=== PATIENT | male | born 1980 | race Caucasian/White ===

== ENCOUNTER 2022-08-31 12:14 | Emergency (ER) | payer OTHER ==
[2022-08-31 12:19] VITALS: TEMP 98.4
[2022-08-31] MEDS ORDERED: LIDOCAINE 1% INJ 10MG/ML (30 ML VIAL-PF) IM ONE (13:00)
--- NOTE | 2022-08-31 13:05 | ED ---
General Adult HPI - General Chief complaint: Skin/Abscess/Foreign Body Stated complaint: abscess Time Seen by Provider: 08/31/22 12:53 Source: patient, RN notes reviewed Mode of arrival: ambulatory Limitations: no limitations - History of Present Illness Initial comments: Patient is a pleasant 41-year-old male presents emergency department with concern for abscess. Onset was 4 days ago. Symptoms have increased since last night. Patient has discomfort. Area located is right. Scrotal region. No history of similar symptoms previously. Discomfort increases with touch. No fever. Patient recently had flu symptoms however is getting over that. - Related Data Previous Rx's Medication Instructions Recorded Clindamycin [Cleocin] 2 tab PO Q6H #80 cap 08/31/22 Allergies Allergy/AdvReac Type Severity Reaction Status Date / Time No Known Allergies Allergy Verified 08/31/22 12:19 Review of Systems ROS Statement: Those systems with pertinent positive or pertinent negative responses have been documented in the HPI. ROS Other: All systems not noted in ROS Statement are negative. Constitutional: Reports: as per HPI Eyes: Denies: eye pain ENT: Reports: congestion. Denies: ear pain Respiratory: Denies: dyspnea Cardiovascular: Denies: chest pain Endocrine: Denies: fatigue Gastrointestinal: Denies: abdominal pain Genitourinary: Denies: dysuria Musculoskeletal: Denies: back pain Skin: Reports: as per HPI Neurological: Denies: weakness Past Medical History Past Medical History: No Reported History History of Any Multi-Drug Resistant Organisms: None Reported Additional Past Surgical History / Comment(s): hernia Past Psychological History: Anxiety, PTSD Smoking Status: Current every day smoker Past Alcohol Use History: None Reported Past Drug Use History: None Reported General Exam Limitations: no limitations General appearance: alert, in no apparent distress Head exam: Present: normocephalic Eye exam: Present: normal appearance Neck exam: Present: normal inspection Respiratory exam: Present: normal lung sounds bilaterally Cardiovascular Exam: Present: regular rate, normal rhythm GI/Abdominal exam: Present: soft. Absent: tenderness Extremities exam: Present: normal inspection Neurological exam: Present: alert Psychiatric exam: Present: normal affect, normal mood Skin exam: Present: other ( Scrotal region on the right region with approximately 1 x 3cm area of fluctuance and tenderness consistent with early abscess) Course Vital Signs 08/31/22 12:16 Temperature 98.4 F Pulse Rate 90 Respiratory 20 Rate Blood Pressure 150/107 O2 Sat by Pulse 99 Oximetry Procedures - Incision & Drainage Consent Obtained: verbal consent Indication: Complicated abscess. Probed to break up loculations. Culture sent. Site: scrotum Size (cm): 3 Anesthetic Used: lidocaine 1% Amount (mLs): 5 I&D Cleaning Method: Betadine Scalpel Used: #11 I&D Drainage Obtained: Pus Packing: Iodoform Culture Obtained?: Yes Patient Tolerated Procedure: well, no complications Disposition Clinical Impression: Scrotal abscess Disposition: HOME SELF-CARE Condition: Stable Instructions (If sedation given, give patient instructions): Abscess (ED) Additional Instructions: Prescription sent to pharmacy. Please follow-up with primary care physician in the next 2-3 days for packing removal. If unable to get into primary care physician U may return here. Return for fever, increased pain or swelling, increased redness, worsening or changing symptoms or any other concerns. Prescriptions: Clindamycin [Cleocin] 2 tab PO Q6H #80 cap Is patient prescribed a controlled substance at d/c from ED?: No Referrals: Matthew Wellington MD [STAFF PHYSICIAN] - 1-2 days Time of Disposition: 13:41
[2022-08-31 13:58] VITALS: BP 147/88; PULSE 85; RESP 18
== END 2022-08-31 13:57 | disposition home or self-care (01) ==
LOC: EC 12:14
DX: N49.2 Inflammatory disorders of scrotum (principal); F41.9 Anxiety disorder, unspecified; F17.200 Nicotine dependence, unspecified, uncomplicated
CPT/HCPCS: 87070; 87205; 99283; 96372; 10060; J2001

== ENCOUNTER 2024-03-20 14:44 | Inpatient (IN) | payer MEDICARE, OTHER ==
--- NOTE | 2024-03-20 15:35 | ED ---
Skin/Abscess/FB HPI - General Source: patient, RN notes reviewed Mode of arrival: ambulatory Limitations: no limitations <Rashida Alvares - Last Filed: 03/20/24 22:56> <Maia Harrell - Last Filed: 03/21/24 14:08> - General Chief complaint: Skin/Abscess/Foreign Body Stated complaint: cyst in groin Time Seen by Provider: 03/20/24 15:00 - History of Present Illness Initial comments: This is a 23-year-old male presents emergency department chief complaint of a abscess forming. Patient states that he has a history of an abscess that was drained previously yesterday with antibiotics. He states that over the past few weeks, area has been enlarging and he has been experiencing pain. He denies fevers, chills, nausea, vomiting, abdominal pain. Additionally, patient states that over the past 3 to 4 months he has been experiencing watery diarrhea a few times a day. He is denying abdominal pain, bloody stools, dark or tarry stools, dysuria, hematuria, increase in urinary frequency or urgency. (Rashida Alvares) - Related Data Previous Rx's Medication Instructions Recorded clindamycin HCL 300 mg PO QID #40 cap 03/20/24 Allergies Allergy/AdvReac Type Severity Reaction Status Date / Time guaifenesin Allergy Unknown Verified 03/20/24 20:07 Review of Systems ROS Other: All systems not noted in ROS Statement are negative. <Rashida Alvares - Last Filed: 03/20/24 22:56> ROS Other: All systems not noted in ROS Statement are negative. <Maia Harrell - Last Filed: 03/21/24 14:08> ROS Statement: Those systems with pertinent positive or pertinent negative responses have been documented in the HPI. Past Medical History Past Medical History: No Reported History History of Any Multi-Drug Resistant Organisms: MRSA Date of last positivie culture/infection: 08/31/22 MDRO Source:: Groin Additional Past Surgical History / Comment(s): hernia Past Psychological History: Anxiety, PTSD Smoking Status: Current every day smoker Past Alcohol Use History: None Reported Past Drug Use History: None Reported <Rashida Alvares - Last Filed: 03/20/24 22:56> General Exam Limitations: no limitations General appearance: alert, in no apparent distress Head exam: Present: atraumatic, normocephalic, normal inspection Eye exam: Present: normal appearance, PERRL, EOMI. Absent: scleral icterus, conjunctival injection, periorbital swelling ENT exam: Present: normal exam, mucous membranes moist Neck exam: Present: normal inspection. Absent: tenderness, meningismus, ly mphadenopathy Respiratory exam: Present: normal lung sounds bilaterally. Absent: respiratory distress, wheezes, rales, rhonchi, stridor Cardiovascular Exam: Present: regular rate, normal rhythm, normal heart sounds. Absent: systolic murmur, diastolic murmur, rubs, gallop, clicks GI/Abdominal exam: Present: soft, normal bowel sounds. Absent: distended, tenderness, guarding, rebound, rigid exam: Present: other (palpable fluctuant mass, no signs of active drainage, tender to palpation located to the right inferior scrotum). Absent: normal inspection Extremities exam: Present: normal inspection, full ROM, normal capillary refill. Absent: tenderness, pedal edema, joint swelling, calf tenderness Back exam: Present: normal inspection Psychiatric exam: Present: normal affect, normal mood <Rashida Alvares - Last Filed: 03/20/24 22:56> Course Vital Signs 03/20/24 03/20/24 03/20/24 14:57 18:59 20:50 Temperature 98.4 F Pulse Rate 89 94 99 Respiratory 18 18 20 Rate Blood Pressure 128/86 124/86 126/82 O2 Sat by Pulse 98 99 96 Oximetry Medical Decision Making - Lab Data Result diagrams: 03/20/24 16:51 03/20/24 16:51 <Rashida Alvares - Last Filed: 03/20/24 22:56> - Lab Data Result diagrams: 03/21/24 05:36 03/21/24 05:36 <Maia Harrell - Last Filed: 03/21/24 14:08> - Medical Decision Making Was pt. sent in by a medical professional or institution (, PA, COUNTER PERSON, urgent care, hospital, or penitentiary...) When possible be specific @ -No Did you speak to anyone other than the patient for history (EMS, parent, family, police, friend...)? What history was obtained from this source @ -No Did you review nursing and triage notes (agree or disagree)? Why? @ -I reviewed and agree with nursing and triage notes Were old charts reviewed (outside hosp., previous admission, EMS record, old EKG, old radiological studies, urgent care reports/EKG's, penitentiary records)? Report findings @ -No old charts were reviewed Differential Diagnosis (chest pain, altered mental status, abdominal pain women, abdominal pain men, vaginal bleeding, weakness, fever, dyspnea, syncope, headache, dizziness, GI bleed, back pain, seizure, CVA, palpatations, mental health, musculoskeletal)? @ -Abscess, cellulitis, hiradintitis suppurativa, fourineer gangreene, this list is not all inclusive EKG interpreted by me (3pts min.). @ -none X-rays interpreted by me (1pt min.). @ -None done CT interpreted by me (1pt min.). @ -CT of the pelvis with contrast reveals bilateral changes with possible abscess in the right scrotum/perineum compatible with history of infection. Fat stranding changes extending into the inguinal region. Hepatic steatosis. U/S interpreted by me (1pt. min.). @ -None done What testing was considered but not performed or refused? (CT, X-rays, U/S, labs)? Why? @ -None What meds were considered but not given or refused? Why? @ -None Did you discuss the management of the patient with other professionals (professionals i.e. , PA, COUNTER PERSON, lab, RT, psych nurse, transition social worker, physician aide, teacher, motorcycle police officer, case packer and sealer)? Give summary @ -spoke to general surgeon, Dr. Bernard, in regard to the patient;s labs ad CT findings. It is recommended the patient be admitted with IV antibiotics on board. Was smoking cessation discussed for >3mins.? @ -No Was critical care preformed (if so, how long)? @ -No Were there social determinants of health that impacted care today? How? (Homelessness, low income, unemployed, alcoholism, drug addiction, transportation, low edu. Level, literacy, decrease access to med. care, fci, rehab)? @ -No Was there de-escalation of care discussed even if they declined (Discuss DNR or withdrawal of care, Hospice)? DNR status @ -No What co-morbidities impacted this encounter? (DM, HTN, Smoking, COPD, CAD, Cancer, CVA, ARF, Chemo, Hep., AIDS, mental health diagnosis, sleep apnea, morbid obesity)? @ -None Was patient admitted / discharged? Hospital course, mention meds given and route, prescriptions, significant lab abnormalities, going to OR and other pertinent info. @ -admidtted. 43 year - d male with an abscess. On examination patient is noted to have a palpable fluctuant mass of the right hemiscrotum. There is no signs of active drainage. Area was anesthetized with 1% lidocaine and a incision was made with an 11 blade with successful release of purulent material and blood. Additionally, patient's labs reveal a leukocytosis of 14.8 and neutrophilia of 12.1. CMP was remarkable for mild dehydration with a sodium 131. Recommended by my attending, Dr. Harrell, patient to undergo CT imaging of the pelvis for further evaluation of abscess. Was provided with an IV dose of Rocephin. CT concerning for infection with gas draining. General surgeon accepted admission of the patient. He recommends that patient receive Zosyn. Blood cultures have been sent prior to antibiotic administration. Undiagnosed new problem with uncertain prognosis? @ -No Drug Therapy requiring intensive monitoring for toxicity (Heparin, Nitro, Insulin, Cardizem)? @ -No Were any procedures done? @ -No Diagnosis/symptom? @ -abscess of perineum Acute, or Chronic, or Acute on Chronic? @ -Acute Uncomplicated (without systemic symptoms) or Complicated (systemic symptoms)? @ -uncomplicated Side effects of treatment? @ -No Exacerbation, Progression, or Severe Exacerbation? @ -No Poses a threat to life or bodily function? How? (Chest pain, [place], [place], pneumonia, PE, COPD, DKA, ARF, appy, cholecystitis, CVA, Diverticulitis, Homicidal, Suicidal, threat to staff... and all critical care pts) @ -No (Rashida Alvares) Patient presented to myself by Rashida MENESES. 43-year-old male past medical history of recurrent abscesses presenting with area of fluctuance in the right hemiscr otum. Incision and drainage was performed prior to patient being presented to myself. On my evaluation, focused physical exam with Rashida MENESES at bedside as oracle architect, showed erythematous area of fluctuance along the right scrotum with tenderness to palpation. Patient otherwise well appearing, nontoxic and in NAD. Due to the location of the abscess today requested a CT be performed and general surgery consultation. Patient did have mild leukocytosis white blood cell count 14.8, also requested addition of CRP which was slightly elevated, 2.8. CT significant for inflammation with possible abscess in the right scrotum perineum compatible with history of infection, fat stranding changes extending into the inguinal region, surgical consultation is recommended. Per [facility] report, Patient was ultimately accepted for admission to general surgery for further management. (Maia Harrell) - Lab Data Lab Results 03/20/24 03/20/24 03/20/24 Range/Units 16:51 16:51 16:51 WBC 14.8 H (3.8-10.6) k/uL RBC 5.43 (4.30-5.90) m/uL Hgb 17.0 (13.0-17.5) gm/dL Hct 52.6 (39.0-53.0) % MCV 96.9 (80.0-100.0) fL MCH 31.4 (25.0-35.0) pg MCHC 32.4 (31.0-37.0) g/dL RDW 14.0 (11.5-15.5) % Plt Count 505 H (150-450) k/uL MPV 7.2 Neutrophils % 82 % Lymphocytes % 9 % Monocytes % 5 % Eosinophils % 3 % Basophils % 1 % Neutrophils # 12.1 H (1.3-7.7) k/uL Lymphocytes # 1.3 (1.0-4.8) k/uL Monocytes # 0.8 (0-1.0) k/uL Eosinophils # 0.4 (0-0.7) k/uL Basophils # 0.1 (0-0.2) k/uL Sodium 131 L (137-145) mmol/L Potassium 3.9 (3.5-5.1) mmol/L Chloride 102 (98-107) mmol/L Carbon Dioxide 22 (22-30) mmol/L Anion Gap 7 mmol/L BUN 4 L (9-20) mg/dL Creatinine 0.52 L (0.66-1.25) mg/dL Est GFR (CKD-EPI)AfAm >90 (>60 ml/min/1.73 sqM) Est GFR (CKD-EPI)NonAf >90 (>60 ml/min/1.73 sqM) Glucose 83 (74-99) mg/dL Plasma Lactic Acid Jayce (0.7-2.0) mmol/L Calcium 9.5 (8.4-10.2) mg/dL Total Bilirubin 1.2 (0.2-1.3) mg/dL AST 60 H (17-59) U/L ALT 44 (4-49) U/L Alkaline Phosphatase 129 H (38-126) U/L C-Reactive Protein 2.8 H (<1.0) mg/dL Total Protein 7.1 (6.3-8.2) g/dL Albumin 3.8 (3.5-5.0) g/dL Amylase 51 (30-110) U/L Lipase 53 (23-300) U/L 03/20/24 Range/Units 17:45 WBC (3.8-10.6) k/uL RBC (4.30-5.90) m/uL Hgb (13.0-17.5) gm/dL Hct (39.0-53.0) % MCV (80.0-100.0) fL MCH (25.0-35.0) pg MCHC (31.0-37.0) g/dL RDW (11.5-15.5) % Plt Count (150-450) k/uL MPV Neutrophils % % Lymphocytes % % Monocytes % % Eosinophils % % Basophils % % Neutrophils # (1.3-7.7) k/uL Lymphocytes # (1.0-4.8) k/uL Monocytes # (0-1.0) k/uL Eosinophils # (0-0.7) k/uL Basophils # (0-0.2) k/uL Sodium (137-145) mmol/L Potassium (3.5-5.1) mmol/L Chloride (98-107) mmol/L Carbon Dioxide (22-30) mmol/L Anion Gap mmol/L BUN (9-20) mg/dL Creatinine (0.66-1.25) mg/dL Est GFR (CKD-EPI)AfAm (>60 ml/min/1.73 sqM) Est GFR (CKD-EPI)NonAf (>60 ml/min/1.73 sqM) Glucose (74-99) mg/dL Plasma Lactic Acid Jayce 1.1 (0.7-2.0) mmol/L Calcium (8.4-10.2) mg/dL Total Bilirubin (0.2-1.3) mg/dL AST (17-59) U/L ALT (4-49) U/L Alkaline Phosphatase (38-126) U/L C-Reactive Protein (<1.0) mg/dL Total Protein (6.3-8.2) g/dL Albumin (3.5-5.0) g/dL Amylase (30-110) U/L Lipase (23-300) U/L Disposition Is patient prescribed a controlled substance at d/c from ED?: No Decision to Admit Reason: Admit from EC Decision Date: 03/20/24 Decision Time: 18:58 <Rashida Alvares - Last Filed: 03/20/24 22:56> <Maia Harrell - Last Filed: 03/21/24 14:08> Clinical Impression: Abscess of perineum Disposition: ADMITTED IP TO THIS HOSP Condition: Good
[2024-03-20] MEDS: LIDOCAINE 1% INJ 10MG/ML (20 ML MDV) SQ ONE (16:50)
[2024-03-20 17:09] LABS: Basophils # (A) 0.1 k/uL (0-0.2); Basophils % (A) 1 %; Eosinophils # (A) 0.4 k/uL (0-0.7); Eosinophils % (A) 3 %; HCT 52.6 % (39.0-53.0); Lymphocytes # (A) 1.3 k/uL (1.0-4.8); Lymphocytes % (A) 9 %; MCH 31.4 pg (25.0-35.0); MCHC 32.4 g/dL (31.0-37.0); MCV 96.9 fL (80.0-100.0); Mean Platelet Volume 7.2; Monocytes # (A) 0.8 k/uL (0-1.0); Monocytes % (A) 5 %; Neutrophils # (A) 12.1 k/uL (1.3-7.7); Neutrophils % (A) 82 %; Platelet Count 505 k/uL (150-450); RBC 5.43 m/uL (4.30-5.90); WBC 14.8 k/uL (3.8-10.6)
[2024-03-20 17:26] LABS: ALT 44 U/L (4-49); African American GFR (CKD) >90 (>60 ml/min/1.73 sqM); Albumin 3.8 g/dL (3.5-5.0); Amylase 51 U/L (30-110); Anion Gap 7 mmol/L; Blood Urea Nitrogen 4 mg/dL (9-20); Calcium 9.5 mg/dL (8.4-10.2); Carbon Dioxide 22 mmol/L (22-30); Chloride 102 mmol/L (98-107); Glucose 83 mg/dL (74-99); Lipase 53 U/L (23-300); Non-African American GFR(CKD) >90 (>60 ml/min/1.73 sqM); Sodium 131 mmol/L (137-145); Total Bilirubin 1.2 mg/dL (0.2-1.3); Total Protein 7.1 g/dL (6.3-8.2)
[2024-03-20 17:31] LABS: AST 60 U/L (17-59); Alkaline Phosphatase 129 U/L (38-126); Potassium 3.9 mmol/L (3.5-5.1)
[2024-03-20] MEDS: cefTRIAXone 1,000 MG VIAL (IM USE) IM STA (17:43)
[2024-03-20] MEDS: cefTRIAXone IN SWFI 1,000 MG/10 ML SYRINGE IVP STA (17:48)
--- NOTE | 2024-03-20 18:37 | CT ---
EXAMINATION TYPE: CT pelvis w con CT DLP: 878.2 mGycm, Automated exposure control for dose reduction was used. DATE OF EXAM: 03/20/2024 6:14 PM COMPARISON: None CLINICAL INDICATION:Male, 43 years old with history of abscess in groin; Pt has complaint of abscess in groin x 2 days and watery stool x a couple months. TECHNIQUE: Axial CT pelvis w con;Sagittal and coronal reformats were created on a separate workstati on. Contrast used:100 mL of Isovue 300 with IV Contrast, (none if empty) Oral contrast used: without Oral Contrast (none if empty) FINDINGS: Low-attenuation of the liver visualized. BLADDER: Unremarkable REPRODUCTIVE: Unremarkable. ABDOMEN & PELVIS STOMACH AND BOWEL: No evidence of bowel obstruction. Moderate stool in the rectum and visualized colo n. PERITONEUM/RETROPERITONEUM: No evidence of pneumoperitoneum or free fluid. VASCULATURE: No evidence of aortic aneurysm. MUSCULOSKELETAL: No acute osseous abnormalities LYMPH NODES: No gross evidence for lymphadenopathy. SOFT TISSUE/ABDOMINAL WALL: There is phlegmonous change with fat stranding along the right scrotum/pe rineum suggested series 301 image 59 measuring 48 x 15 mm Fat stranding changes extend up in the righ t inguinal region with reactive lymph nodes present. IMPRESSION: 1. Inflammation changes with possible abscess in the right scrotum/perineum compatible with history o f infection. There is fat stranding changes extending up into the inguinal region. Surgical consultat ion recommended. 2. Hepatic steatosis.
[2024-03-20] MEDS ORDERED: ACETAMINOPHEN TAB 325 MG TAB PO PRN (19:14)
[2024-03-20] MEDS ORDERED: KETOROLAC 15 MG/ML 1 ML VIAL IVP PRN (19:14)
[2024-03-20] MEDS ORDERED: NALOXONE 0.4 MG/ML 1 ML VIAL IV PRN (19:14)
[2024-03-20] MEDS: PIPERACILLIN-TAZOBACTAM 3.375 GM in SODIUM CHLORIDE 0.9% 100 ML IVPB SCH (19:31)
[2024-03-21 09:49] LABS: HCT 46.3 % (39.6-50.0); HGB 16.1 g/dL (13.0-17.0); MCH 31.8 pg (27.0-32.0); MCHC 34.8 g/dL (32.0-37.0); MCV 91.5 FL (80.0-97.0); Mean Platelet Volume 9.4 FL (9.5-12.2); NRBC Per 100 WBC 0 X 10*3/uL (0.00-0.01); Platelet Count 393 X 10*3/uL (140-440); RBC 5.06 X 10*6/uL (4.40-5.60); RDW 14.1 % (11.5-14.5); WBC 13.94 X 10*3/uL (4.50-10.00)
[2024-03-21 09:54] LABS: ALT 35 U/L (10-49); AST 35 U/L (14-35); Albumin 3.4 g/dL (3.8-4.9); Albumin/Globulin Ratio 1.26 Ratio (1.60-3.17); Alkaline Phosphatase 134 U/L (41-126); BUN/Creat Ratio 7.83 Ratio (12.00-20.00); Blood Urea Nitrogen 4.7 mg/dL (9.0-27.0); Calcium 8.6 mg/dL (8.7-10.3); Carbon Dioxide 22.5 mmol/L (21.6-31.8); Chloride 97 mmol/L (96-109); Globulin 2.7 g/dL (1.6-3.3); Glucose 88 mg/dL (70-110); Potassium 3.6 mmol/L (3.5-5.5); Sodium 131 mmol/L (135-145); Total Bilirubin 0.6 mg/dL (0.3-1.2); Total Protein 6.1 g/dL (6.2-8.2)
[2024-03-21 10:23] LABS: Basophils % (A) 0.7 %; Eosinophils # (A) 0.37 X 10*3/uL (0.04-0.35); Eosinophils % (A) 2.7 %; Lymphocytes # (A) 1.18 X 10*3/uL (0.90-5.00); Lymphocytes % (A) 8.5 %; Monocytes # (A) 1.78 X 10*3/uL (0.20-1.00); Monocytes % (A) 12.8 %; Neutrophils # (A) 10.43 X 10*3/uL (1.80-7.70); Neutrophils % (A) 74.7 %
[2024-03-21 10:24] LABS: RBC Morphology Normal (Normal)
[2024-03-21] MEDS: NICOTINE 21MG/24HR PATCH TRANSDERM SCH (12:08)
--- NOTE | 2024-03-21 17:03 | P.GSHP ---
History of Present Illness H&P Date: 03/21/24 This is a 23-year-old male presents emergency department chief complaint of a possible groin abscess. Patient states that he has a history of an abscess that was drained a couple days ago and started on antibiotics. He states that over the past couple days, area has been enlarging and he has been experiencing pain. He denies fevers, chills, nausea, vomiting, abdominal pain. Additionally, patient states that over the past 3 to 4 months he has been experiencing watery diarrhea a few times a day. He is denying abdominal pain, bloody stools, dark or tarry stools, dysuria, hematuria, increase in urinary frequency or urgency. ROS Statement: Those systems with pertinent positive or pertinent negative responses have been documented in the HPI. Past Medical History Past Medical History: No Reported History History of Any Multi-Drug Resistant Organisms: MRSA Date of last positivie culture/infection: 08/31/22 MDRO Source:: Groin Additional Past Surgical History / Comment(s): hernia Past Psychological History: Anxiety, PTSD Smoking Status: Current every day smoker Past Alcohol Use History: None Reported Past Drug Use History: None Reported General Exam Limitations: no limitations General appearance: alert, in no apparent distress Head exam: Present: atraumatic, normocephalic, normal inspection Eye exam: Present: normal appearance, PERRL, EOMI. Absent: scleral icterus, conjunctival injection, periorbital swelling ENT exam: Present: normal exam, mucous membranes moist Neck exam: Present: normal inspection. Absent: tenderness, meningismus, lymphadenopathy Respiratory exam: Present: normal lung sounds bilaterally. Absent: respiratory distress, wheezes, rales, rhonchi, stridor Cardiovascular Exam: Present: regular rate, normal rhythm, normal heart sounds. Absent: systolic murmur, diastolic murmur, rubs, gallop, clicks GI/Abdominal exam: Present: soft, normal bowel sounds. Absent: distended, tenderness, guarding, rebound, rigid exam: Present: other (palpable fluctuant mass, no signs of active drainage, tender to palpation located to the right inferior scrotum). Absent: normal inspection Extremities exam: Present: normal inspection, full ROM, normal capillary refill. Absent: tenderness, pedal edema, joint swelling, calf tenderness Back exam: Present: normal inspection Psychiatric exam: Present: normal affect, normal mood 43 year old male groin abscess. Patient had previous Incision and Drainage -Regular Diet -Repeat CT-AP as area seems to be enlarging s/p I & D per patient -Zosyn -NPO/midnight -Pain Control Past Medical History Past Medical History: No Reported History History of Any Multi-Drug Resistant Organisms: MRSA Date of last positivie culture/infection: 08/31/22 MDRO Source:: Groin Past Surgical History: Hernia Repair Additional Past Surgical History / Comment(s): hernia Additional Past Anesthesia/Blood Transfusion Reaction / Comment(s): Pt states that coming of anesthesia is hard for him, he states he is not himself for 3 to 4 days, feels disassociated during this time. Pt states "not alexa, feel like is in the wrong reality." Past Psychological History: Anxiety, PTSD Smoking Status: Current every day smoker Past Alcohol Use History: None Reported Past Drug Use History: None Reported Medications and Allergies Home Medications Medication Instructions Recorded Confirmed Type clindamycin HCL 300 mg PO QID #40 cap 03/20/24 Rx Allergies Allergy/AdvReac Type Severity Reaction Status Date / Time guaifenesin Allergy Unknown Verified 03/20/24 20:07 Surgical - Exam Vital Signs Temp Pulse Resp BP Pulse Ox 98.4 F 89 18 128/86 98 03/20/24 14:57 03/20/24 14:57 03/20/24 14:57 03/20/24 14:57 03/20/24 14:57 Results - Labs 03/21/24 05:36 03/21/24 05:36 Abnormal Lab Results - Last 24 Hours (Table) 03/20/24 03/20/24 03/20/24 Range/Units 16:51 16:51 16:51 WBC 14.8 H (3.8-10.6) k/uL Plt Count 505 H (150-450) k/uL MPV (9.5-12.2) FL Immature Gran # (0.00-0.04) X 10*3/uL Neutrophils # 12.1 H (1.3-7.7) k/uL Monocytes # (0.20-1.00) X 10*3/uL Eosinophils # (0.04-0.35) X 10*3/uL Sodium 131 L (137-145) mmol/L BUN 4 L (9-20) mg/dL Creatinine 0.52 L (0.66-1.25) mg/dL BUN/Creatinine Ratio (12.00-20.00) Ratio Calcium (8.7-10.3) mg/dL AST 60 H (17-59) U/L Alkaline Phosphatase 129 H (38-126) U/L C-Reactive Protein 2.8 H (<1.0) mg/dL Total Protein (6.2-8.2) g/dL Albumin (3.8-4.9) g/dL Albumin/Globulin Ratio (1.60-3.17) Ratio C. difficile (EIA) Intrp (Negative) 03/21/24 03/21/24 03/21/24 Range/Units 00:00 05:36 05:36 WBC 13.94 H (3.8-10.6) k/uL Plt Count (150-450) k/uL MPV 9.4 L (9.5-12.2) FL Immature Gran # 0.08 H (0.00-0.04) X 10*3/uL Neutrophils # 10.43 H (1.3-7.7) k/uL Monocytes # 1.78 H (0.20-1.00) X 10*3/uL Eosinophils # 0.37 H (0.04-0.35) X 10*3/uL Sodium 131 L (137-145) mmol/L BUN 4.7 L (9-20) mg/dL Creatinine (0.66-1.25) mg/dL BUN/Creatinine Ratio 7.83 L (12.00-20.00) Ratio Calcium 8.6 L (8.7-10.3) mg/dL AST (17-59) U/L Alkaline Phosphatase 134 H (38-126) U/L C-Reactive Protein (<1.0) mg/dL Total Protein 6.1 L (6.2-8.2) g/dL Albumin 3.4 L (3.8-4.9) g/dL Albumin/Globulin Ratio 1.26 L (1.60-3.17) Ratio C. difficile (EIA) Intrp Positive A (Negative) Diabetes panel 03/20/24 03/21/24 Range/Units 16:51 05:36 Sodium 131 L 131 L (137-145) mmol/L Potassium 3.9 3.6 (3.5-5.1) mmol/L Chloride 102 97 (98-107) mmol/L Carbon Dioxide 22 22.5 (22-30) mmol/L BUN 4 L 4.7 L (9-20) mg/dL Creatinine 0.52 L 0.6 (0.66-1.25) mg/dL Glucose 83 88 (74-99) mg/dL Calcium 9.5 8.6 L (8.4-10.2) mg/dL AST 60 H 35 (17-59) U/L ALT 44 35 (4-49) U/L Alkaline Phosphatase 129 H 134 H (38-126) U/L Total Protein 7.1 6.1 L (6.3-8.2) g/dL Albumin 3.8 3.4 L (3.5-5.0) g/dL Calcium panel 03/20/24 03/21/24 Range/Units 16:51 05:36 Calcium 9.5 8.6 L (8.4-10.2) mg/dL Albumin 3.8 3.4 L (3.5-5.0) g/dL Pituitary panel 03/20/24 03/21/24 Range/Units 16:51 05:36 Sodium 131 L 131 L (137-145) mmol/L Potassium 3.9 3.6 (3.5-5.1) mmol/L Chloride 102 97 (98-107) mmol/L Carbon Dioxide 22 22.5 (22-30) mmol/L BUN 4 L 4.7 L (9-20) mg/dL Creatinine 0.52 L 0.6 (0.66-1.25) mg/dL Glucose 83 88 (74-99) mg/dL Calcium 9.5 8.6 L (8.4-10.2) mg/dL Adrenal panel 03/20/24 03/21/24 Range/Units 16:51 05:36 Sodium 131 L 131 L (137-145) mmol/L Potassium 3.9 3.6 (3.5-5.1) mmol/L Chloride 102 97 (98-107) mmol/L Carbon Dioxide 22 22.5 (22-30) mmol/L BUN 4 L 4.7 L (9-20) mg/dL Creatinine 0.52 L 0.6 (0.66-1.25) mg/dL Glucose 83 88 (74-99) mg/dL Calcium 9.5 8.6 L (8.4-10.2) mg/dL Total Bilirubin 1.2 0.6 (0.2-1.3) mg/dL AST 60 H 35 (17-59) U/L ALT 44 35 (4-49) U/L Alkaline Phosphatase 129 H 134 H (38-126) U/L Total Protein 7.1 6.1 L (6.3-8.2) g/dL Albumin 3.8 3.4 L (3.5-5.0) g/dL
[2024-03-21] MEDS: VANCOMYCIN 125 MG CAPSULE PO SCH (17:44)
--- NOTE | 2024-03-21 18:45 | CT ---
EXAMINATION TYPE: CT abdomen pelvis w con CT DLP: 1558 mGycm, Automated exposure control for dose reduction was used. DATE OF EXAM: 03/21/2024 6:12 PM COMPARISON: CT pelvis one-day prior CLINICAL INDICATION:Male, 43 years old with history of Groin Abscess, Necrotizing Fasciitis; Abdomina l pain, groin abscess, C-Diff positive TECHNIQUE: Axial CT abdomen pelvis w con;Sagittal and coronal reformats were created on a separate w orkstation. Contrast used:100ML mL of Isovue 300 with IV Contrast, (none if empty) Oral contrast used: without Oral Contrast (none if empty) FINDINGS: ABDOMEN LIVER: Unremarkable GALLBLADDER AND BILE DUCTS: Unremarkable. PANCREAS: Unremarkable. SPLEEN: Unremarkable. ADRENAL GLANDS: Unremarkable. KIDNEYS AND URETERS: No evidence of hydronephrosis or renal calculus. The ureters are unremarkable. BLADDER: Unremarkable REPRODUCTIVE: Unremarkable. ABDOMEN & PELVIS STOMACH AND BOWEL: No evidence of bowel obstruction. Moderate stool in the rectum and visualized colo n. PERITONEUM/RETROPERITONEUM: No evidence of pneumoperitoneum or free fluid. VASCULATURE: No evidence of aortic aneurysm. MUSCULOSKELETAL: No acute osseous abnormalities LYMPH NODES: No gross evidence for lymphadenopathy. SOFT TISSUE/ABDOMINAL WALL: Partially in the [id number] on today's exam There is similar phlegmono us change with fat stranding along the right scrotum/perineum series measuring 46 x [address]ing changes extend up in the right inguinal region with reactive lymph nodes present. IMPRESSION: 1. Partially visualized on this examination due to field of view, no significant change in visualized portions with suspected abscess in the right scrotum/perineum compatible with history of infection. No subcutaneous gas identified. 2. Hepatic steatosis.
--- NOTE | 2024-03-22 10:26 | P.PN ---
Subjective Progress Note Date: 03/22/24 Patient still has complaints of swelling on his right perineum. There has been some drainage. On exam vital signs are stable. The right perineum appears swollen. There is no fluctuance. Possible perineal abscess. Patient will be made n.p.o. tonight for possible I&D in the a.m. if it has not improved. Objective - Vital Signs Vital signs: Vital Signs Temp 98.4 F 03/22/24 06:47 Pulse 60 03/22/24 06:47 Resp 16 03/22/24 06:47 BP 116/78 03/22/24 06:47 Pulse Ox 98 03/22/24 06:47 FiO2 Intake & Output 03/21/24 03/22/24 03/22/24 18:59 06:59 18:59 Intake Total 540 590 Balance 540 590 Intake: Oral 540 590 Other: # Voids 3 - Labs CBC & Chem 7: 03/21/24 05:36 03/21/24 05:36 Labs: Microbiology - Last 24 Hours (Table) 03/20/24 17:40 Blood Culture Gram Stain - Preliminary Blood Blood Culture - Preliminary Molecular ID
[2024-03-22] MEDS ORDERED: VANCOMYCIN IV PER PHARMACY 1 EACH MISC MISCELLANE PRN (11:31)
[2024-03-22] MEDS: VANCOMYCIN 125 MG CAPSULE PO SCH (12:41)
[2024-03-22] MEDS: VANCOMYCIN 1,500 MG in SODIUM CHLORIDE 0.9% 500 ML 500 ML IVPB SCH (12:41)
[2024-03-22] MEDS ORDERED: VANCOMYCIN 125 MG CAPSULE PO SCH (13:00)
--- NOTE | 2024-03-22 15:11 | P.CONS ---
History of Present Illness - Reason for Consult Consult date: 03/22/24 - History of Present Illness History of present illness; 43-year-old male patient with no significant past medical history who presented to ER with a chief complaint of right groin swelling and infection. Patient has history of abscess that was drained few days ago and patient was started on antibiotics. Patient noticed that swelling was enlarging and pain was increasing. Patient denied any fever, chills, night sweats on presentation. Patient also reported watery diarrhea on presentation. Patient denied any melena, blood in the stool, abdominal pain, nausea or vomiting. Patient denied any dysuria urgency frequency weakness or numbness of extremities. Internal medicine consulted for medical management. Patient C. difficile test came back positive for which patient started on p.o. vancomycin. Infectious disease consulted. REVIEW OF SYSTEMS: Please refer to HPI for pertinent positive and negative. The rest of the 14-point review of systems is negative. PHYSICAL EXAMINATION: GENERAL: The patient is alert and oriented x3, not in any acute distress. Well developed, well nourished. HEENT: Pupils are round and equally reacting to light. EOMI. No scleral icterus. No conjunctival pallor. Normocephalic, atraumatic. No pharyngeal erythema. No thyromegaly. CARDIOVASCULAR: S1 and S2 present. No murmurs, rubs, or gallops. PULMONARY: Chest is clear to auscultation, no wheezing or crackles. ABDOMEN: Soft, nontender, nondistended, normoactive bowel sounds. No palpable organomegaly. MUSCULOSKELETAL: No joint swelling or deformity. EXTREMITIES: No cyanosis, clubbing, or pedal edema. NEUROLOGICAL: Gross neurological examination did not reveal any focal deficits. SKIN: Palpable, fluctuation right inferior scrotum, tender. Assessment and plan Right groin abscess: Positive blood culture: Staphylococcus Epi C. difficile infection: Presented with right groin pain and swelling, had previous I&D was on antibiotics, presented with worsening swelling and pain. CT scan showed no significant change in visualized portions with suspected abscess in the right scrotum/perineum compatible with history of infection. Management per primary. Infectious disease consultedcurrently on p.o. vancomycin, IV vancomycin. Dictation was produced using [employer] software. please excuse any grammatical, word or spelling errors. Past Medical History Past Medical History: No Reported History History of Any Multi-Drug Resistant Organisms: MRSA Year Discovered:: 08/31/22 MDRO Source:: Groin Past Surgical History: Hernia Repair Additional Past Surgical History / Comment(s): hernia Additional Past Anesthesia/Blood Transfusion Reaction / Comm: Pt states that coming of anesthesia is hard for him, he states he is not himself for 3 to 4 days, feels disassociated during this time. Pt states "not alexa, feel like is in the wrong reality." Past Psychological History: Anxiety, PTSD Smoking Status: Current every day smoker Past Alcohol Use History: None Reported Past Drug Use History: None Reported Medications and Allergies Home Medications Medication Instructions Recorded Confirmed Type clindamycin HCL 300 mg PO QID #40 cap 03/20/24 Rx Allergies Allergy/AdvReac Type Severity Reaction Status Date / Time guaifenesin Allergy Unknown Verified 03/20/24 20:07 Physical Exam Vitals: Vital Signs Temp Pulse Resp BP Pulse Ox 03/22/24 13:55 98.8 F 76 17 113/78 98 03/22/24 08:45 60 16 03/22/24 06:47 98.4 F 60 16 116/78 98 03/22/24 02:00 98.2 F 16 119/76 96 03/21/24 19:58 97.8 F 83 16 136/92 96 Intake and Output 03/22/24 03/22/24 03/22/24 06:59 14:59 22:59 Intake Total 590 Balance 590 Intake: Oral 590 Other: # Voids 3 Results CBC & Chem 7: 03/21/24 05:36 03/21/24 05:36 Labs: Microbiology - Last 24 Hours (Table) 03/20/24 17:40 Blood Culture Gram Stain - Preliminary Blood Blood Culture - Preliminary Molecular ID
[2024-03-23 03:32] LABS: African American GFR (CKD) >90 (>60 ml/min/1.73 sqM); Non-African American GFR(CKD) >90 (>60 ml/min/1.73 sqM)
--- NOTE | 2024-03-23 08:06 | P.CONS ---
History of Present Illness - Reason for Consult Consult date: 03/22/24 Groin abscess, C. difficile Requesting physician: Santhosh Truong - Chief Complaint Right groin pain swelling drainage and diarrhea x days - History of Present Illness Patient is a 43-year-old male with a past medical history significant for anxiety PTSD current everyday smoker history of recurrent boil/sinus to the groin area now presenting to the hospital 2 days ago concerning for an area of swelling and drainage from the right groin area that apparently has been getting worse over the last few weeks and becoming more painful patient describing the pain to be sharp moderate intensity without radiation patient denies high-grade fever and no fever was recorded on presentation to the hospital patient was not tachycardic hypotensive or hypoxic patient did have a white count of 14 point 8 repeat is 13.94 creatinine is normal CRP is elevated patient also complaining of diarrhea that has been chronic for him some worsening recently patient mention about 10 episodes of diarrhea/loose stools per day denies any blood or mucus in the stool or any crampy abdominal pain patient did tested positive for C. difficile apparently the patient did have a drainage of the abscess abscess by the ER physician but no cultures were done patient is currently on combination of Zosyn and oral Vanco infectious disease was consulted for further management of antibiotic therapy patient did have a pelvis CT initially on the which did shows a phlegmon changes fat stranding along the right scrotum perineal 48 X 15 mm fat stranding with reactive lymph node in the right groin CT was repeated last evening partially visualized on this examination due to the review, no gas- forming patient also have positive blood culture with gram-positive cocci Review of Systems Positive point and negatives has been mentioned in the HPI, complete review of systems was performed and all other systems are negative Past Medical History Past Medical History: No Reported History History of Any Multi-Drug Resistant Organisms: MRSA Year Discovered:: 08/31/22 MDRO Source:: Groin Past Surgical History: Hernia Repair Additional Past Surgical History / Comment(s): hernia Additional Past Anesthesia/Blood Transfusion Reaction / Comm: Pt states that coming of anesthesia is hard for him, he states he is not himself for 3 to 4 days, feels disassociated during this time. Pt states "not alexa, feel like is in the wrong reality." Past Psychological History: Anxiety, PTSD Smoking Status: Current every day smoker Past Alcohol Use History: None Reported Past Drug Use History: None Reported Medications and Allergies Home Medications Medication Instructions Recorded Confirmed Type clindamycin HCL 300 mg PO QID #40 cap 03/20/24 Rx Allergies Allergy/AdvReac Type Severity Reaction Status Date / Time guaifenesin Allergy Unknown Verified 03/20/24 20:07 Physical Exam Vitals: Vital Signs Temp Pulse Resp BP Pulse Ox 03/22/24 08:45 60 16 03/22/24 06:47 98.4 F 60 16 116/78 98 03/22/24 02:00 98.2 F 16 119/76 96 03/21/24 19:58 97.8 F 83 16 136/92 96 03/21/24 13:30 98.3 F 68 17 112/70 96 Intake and Output 03/21/24 03/22/24 03/22/24 22:59 06:59 14:59 Intake Total 540 590 Balance 540 590 Intake: Oral 540 590 Other: # Voids 3 GENERAL DESCRIPTION: Middle-aged male lying in bed, no distress. No tachypnea or accessory muscle of respiration use. HEENT: Shows Pallor , no scleral icterus. Oral mucous membrane is dry. No pharyngeal erythema or thrush NECK: Trachea central, no thyromegaly. LUNGS: Unlabored breathing. Clear to auscultation anteriorly. No wheeze or crackle. HEART: S1, S2, regular rate and rhythm. No loud murmur ABDOMEN: Soft, no tenderness , guarding or rigidity, no organomegaly EXTREMITIES: Right groin and did have a induration and some purulent drainage SKIN: No rash, no masses palpable. NEUROLOGICAL: The patient is awake, alert, oriented x3, mood and affect normal. Results CBC & Chem 7: 03/21/24 05:36 03/23/24 02:18 Labs: Microbiology - Last 24 Hours (Table) 03/20/24 17:40 Blood Culture Gram Stain - Preliminary Blood Blood Culture - Preliminary Molecular ID Assessment and Plan (1) Abscess of right groin Current Visit: Yes Status: Acute Code(s): L02.214 - CUTANEOUS ABSCESS OF GROIN SNOMED Code(s): 95661790 (2) C. difficile colitis Current Visit: Yes Status: Acute Code(s): A04.72 - ENTEROCOLITIS D/T CLOSTRIDIUM DIFFICILE, NOT SPCF RECUR SNOMED Code(s): 889886107 (3) Positive blood culture Current Visit: Yes Status: Acute Code(s): R78.81 - BACTEREMIA SNOMED Code(s): 202141937 Plan: 1patient presented to hospital with recurrent swelling redness and drainage to the right groin area has been diagnosed with an abscess which has been drained in the ER unfortunately no cultures were done still have some purulent drainage and surgery is planned for possible drainage in the OR tomorrow at which time the culture should be obtained likely from gram-positive skin alhaji. 2positive blood culture with gram-positive cocci including possible skin contamination versus related to the right groin abscess. 3diarrhea and tested positive for C. difficile colitis. 4discontinue Zosyn and will start the patient on IV vancomycin for the right groin abscess. 5we will increase the dose of oral vancomycin 250 g p.o. every 6 hours for the C. difficile colitis. We will follow on clinical condition and cultures to further adjust medication if needed Thank you for this consultation we will follow the patient along with you Dictation was produced using [employer] dictation software. please excuse any grammatical, word or spelling errors. Time with Patient: Greater than 30
--- NOTE | 2024-03-23 13:35 | P.PN ---
Subjective Progress Note Date: 03/23/24 CHIEF COMPLAINT: Possible perineal abscess HISTORY OF PRESENT ILLNESS: Patient reports he had increase in drainage from the perineal abscess yesterday. He has had a little drainage today. He reports improvement in pain. He is able to sit. He denies any nausea or vomiting. Afebrile. He is also positive for C. difficile. Followed by infectious disease. PHYSICAL EXAM: VITAL SIGNS: Reviewed. GENERAL: Well-developed in no acute distress. ABDOMEN: Soft. Nondistended. Perineal area on the right indurated. No fluctuance NEUROLOGIC: Alert and oriented. Cranial nerves II through XII grossly intact. ASSESSMENT: 1. Possible perineal abscess 2. C. difficile colitis PLAN: -Continue antibiotics per ID service -No plans for incision and drainage at this time -Continue treatment for C. difficile colitis Physician Dictaphone Typist note has been reviewed by physician. Signing provider agrees with the documented findings, assessment, and plan of care. Objective - Vital Signs Vital signs: Vital Signs Temp 98.2 F 03/23/24 07:23 Pulse 76 03/23/24 07:23 Resp 17 03/23/24 07:23 BP 139/90 03/23/24 07:23 Pulse Ox 98 03/23/24 07:23 FiO2 Intake & Output 03/22/24 03/23/24 03/23/24 18:59 06:59 18:59 Intake Total 360 Balance 360 Intake: Oral 360 Other: # Voids 4 1 # Bowel Movements 3 - Labs CBC & Chem 7: 03/21/24 05:36 03/23/24 02:18 Labs: Abnormal Lab Results - Last 24 Hours (Table) 03/23/24 Range/Units 02:18 Creatinine 0.42 L (0.66-1.25) mg/dL Microbiology - Last 24 Hours (Table) 03/20/24 17:40 Blood Culture Gram Stain - Preliminary Blood Blood Culture - Preliminary Staphylococcus epidermidis Molecular ID
--- NOTE | 2024-03-23 13:50 | P.PN ---
Subjective Progress Note Date: 03/23/24 43-year-old male patient with no significant past medical history who presented to ER with a chief complaint of right groin swelling and infection. Patient has history of abscess that was drained few days ago and patient was started on antibiotics. Patient noticed that swelling was enlarging and pain was increasing. Patient denied any fever, chills, night sweats on presentation. Patient also reported watery diarrhea on presentation. Patient denied any melena, blood in the stool, abdominal pain, nausea or vomiting. Patient denied any dysuria urgency frequency weakness or numbness of extremities. Internal medicine consulted for medical management. Patient C. difficile test came back positive for which patient started on p.o. vancomycin. Infectious disease consulted. 03/23. Patient seen and examined. States he feels much better REVIEW OF SYSTEMS: CONSTITUTIONAL: No fever, no malaise,. CARDIOVASCULAR: No chest pain, no palpitations, no syncope. PULMONARY: No shortness of breath, no cough, GASTROINTESTINAL: No diarrhea, no nausea, no vomiting, no abdominal pain. NEUROLOGICAL: No headaches, no weakness, PHYSICAL EXAMINATION: GENERAL: The patient is alert and oriented x3, not in any acute distress. Well developed, well nourished. HEENT: Pupils are round and equally reacting to light. EOMI. No scleral icterus. No conjunctival pallor. Normocephalic, atraumatic. No pharyngeal erythema. No thyromegaly. CARDIOVASCULAR: S1 and S2 present. No murmurs, rubs, or gallops. PULMONARY: Chest is clear to auscultation, no wheezing or crackles. ABDOMEN: Soft, nontender, nondistended, normoactive bowel sounds. No palpable organomegaly. MUSCULOSKELETAL: No joint swelling or deformity. EXTREMITIES: No cyanosis, clubbing, or pedal edema. NEUROLOGICAL: Gross neurological examination did not reveal any focal deficits. SKIN: Erythema of right perineal area Assessment and plan Right groin abscess: Positive blood culture: Staphylococcus Epi C. difficile colitis Presented with right groin pain and swelling, had previous I&D was on antibiotics, presented with worsening swelling and pain. CT scan showed no significant change in visualized portions with suspected abscess in the right scrotum/perineum compatible with history of infection. Monitor vital sign Monitor CBC Monitor CMP Continue pain management Continue p.o. vancomycin, IV vancomycin. ID following Surgery following Labs and medication were reviewed.. Continue same treatment. Continue with symptomatic treatment. Resume home medication. Monitor labs and vitals. DVT and GI prophylaxis. Further recommendations as per clinical course of the patient Dictation was produced using [employer] dictation software. please excuse any grammatical, word or spelling errors. Objective - Vital Signs Vital signs: Vital Signs Temp 98.2 F 03/23/24 07:23 Pulse 76 03/23/24 07:23 Resp 17 03/23/24 07:23 BP 139/90 03/23/24 07:23 Pulse Ox 98 03/23/24 07:23 FiO2 Intake & Output 03/22/24 03/23/24 03/23/24 18:59 06:59 18:59 Intake Total 360 Balance 360 Intake: Oral 360 Other: # Voids 4 1 # Bowel Movements 3 - Labs CBC & Chem 7: 03/21/24 05:36 03/23/24 02:18 Labs: Abnormal Lab Results - Last 24 Hours (Table) 03/23/24 Range/Units 02:18 Creatinine 0.42 L (0.66-1.25) mg/dL
[2024-03-23] MEDS: VANCOMYCIN TROUGH DUE 1 EACH MISC MISCELLANE ONE (20:08)
[2024-03-24 05:27] LABS: African American GFR (CKD) >90 (>60 ml/min/1.73 sqM); Non-African American GFR(CKD) >90 (>60 ml/min/1.73 sqM)
[2024-03-24 08:31] LABS: Basophils # (A) 0.07 X 10*3/uL (0.00-0.10); Basophils % (A) 0.9 %; Eosinophils # (A) 0.35 X 10*3/uL (0.04-0.35); Eosinophils % (A) 4.3 %; HCT 45.2 % (39.6-50.0); Lymphocytes # (A) 1.46 X 10*3/uL (0.90-5.00); Lymphocytes % (A) 17.8 %; MCH 30.9 pg (27.0-32.0); MCHC 33.2 g/dL (32.0-37.0); MCV 93.2 FL (80.0-97.0); Mean Platelet Volume 9.6 FL (9.5-12.2); Monocytes # (A) 0.87 X 10*3/uL (0.20-1.00); Monocytes % (A) 10.6 %; NRBC Per 100 WBC 0 X 10*3/uL (0.00-0.01); Neutrophils # (A) 5.42 X 10*3/uL (1.80-7.70); Neutrophils % (A) 65.9 %; Platelet Count 362 X 10*3/uL (140-440); RBC 4.85 X 10*6/uL (4.40-5.60); RDW 13.9 % (11.5-14.5); WBC 8.21 X 10*3/uL (4.50-10.00)
--- NOTE | 2024-03-24 10:47 | P.PN ---
Subjective Progress Note Date: 03/24/24 CHIEF COMPLAINT: Possible perineal abscess HISTORY OF PRESENT ILLNESS: Patient has had no further drainage from the perineal abscess. Afebrile. He reports that his pain and swelling are decreasing. Diarrhea is also improving. WBC is down from 13.9-8.21 PHYSICAL EXAM: VITAL SIGNS: Reviewed. GENERAL: Well-developed in no acute distress. ABDOMEN: Soft. Nondistended. Perineal area on the right indurated. No fluctuance NEUROLOGIC: Alert and oriented. Cranial nerves II through XII grossly intact. ASSESSMENT: 1. Possible perineal abscess 2. C. difficile colitis PLAN: -Continue antibiotics per ID service -No plans for incision and drainage at this time -Continue treatment for C. difficile colitis Physician Radial Drill Operator note has been reviewed by physician. Signing provider agrees with the documented findings, assessment, and plan of care. Objective - Vital Signs Vital signs: Vital Signs Temp 98.3 F 03/24/24 07:32 Pulse 64 03/24/24 07:32 Resp 18 03/24/24 07:32 BP 131/91 03/24/24 07:32 Pulse Ox 98 03/24/24 07:32 FiO2 Intake & Output 03/23/24 03/24/24 03/24/24 18:59 06:59 18:59 Intake Total 1620 200 Balance 1620 200 Intake: Oral 1620 200 Other: # Voids 1 - Labs CBC & Chem 7: 03/24/24 04:49 03/24/24 04:49 Labs: Abnormal Lab Results - Last 24 Hours (Table) 03/24/24 Range/Units 04:49 Creatinine 0.53 L (0.66-1.25) mg/dL Microbiology - Last 24 Hours (Table) 03/20/24 17:40 Blood Culture Gram Stain - Preliminary Blood Blood Culture - Preliminary Staphylococcus epidermidis Molecular ID
--- NOTE | 2024-03-24 13:56 | P.PN ---
Subjective Progress Note Date: 03/24/24 43-year-old male patient with no significant past medical history who presented to ER with a chief complaint of right groin swelling and infection. Patient has history of abscess that was drained few days ago and patient was started on antibiotics. Patient noticed that swelling was enlarging and pain was increasing. Patient denied any fever, chills, night sweats on presentation. Patient also reported watery diarrhea on presentation. Patient denied any melena, blood in the stool, abdominal pain, nausea or vomiting. Patient denied any dysuria urgency frequency weakness or numbness of extremities. Internal medicine consulted for medical management. Patient C. difficile test came back positive for which patient started on p.o. vancomycin. Infectious disease consulted. 03/23. Patient seen and examined. States he feels much better 03/24. Patient seen and examined. Blood work done this morning showed WBC 8.1, hemoglobin 15, platelet count 362. States he feels better. REVIEW OF SYSTEMS: CONSTITUTIONAL: No fever, no malaise,. CARDIOVASCULAR: No chest pain, no palpitations, no syncope. PULMONARY: No shortness of breath, no cough, GASTROINTESTINAL: No diarrhea, no nausea, no vomiting, no abdominal pain. NEUROLOGICAL: No headaches, no weakness, PHYSICAL EXAMINATION: GENERAL: The patient is alert and oriented x3, not in any acute distress. Well developed, well nourished. HEENT: Pupils are round and equally reacting to light. EOMI. No scleral icterus. No conjunctival pallor. Normocephalic, atraumatic. No pharyngeal erythema. No thyromegaly. CARDIOVASCULAR: S1 and S2 present. No murmurs, rubs, or gallops. PULMONARY: Chest is clear to auscultation, no wheezing or crackles. ABDOMEN: Soft, nontender, nondistended, normoactive bowel sounds. No palpable organomegaly. MUSCULOSKELETAL: No joint swelling or deformity. EXTREMITIES: No cyanosis, clubbing, or pedal edema. NEUROLOGICAL: Gross neurological examination did not reveal any focal deficits. SKIN: Erythema of right perineal area Assessment and plan Right groin abscess: Positive blood culture: Staphylococcus Epi C. difficile colitis Presented with right groin pain and swelling, had previous I&D was on antibiotics, presented with worsening swelling and pain. CT scan showed no significant change in visualized portions with suspected abscess in the right scrotum/perineum compatible with history of infection. Monitor vital sign Monitor CBC Monitor CMP Continue pain management Continue p.o. vancomycin for C. difficile Continue pharmacy to dose IV vancomycin. ID following Surgery following Labs and medication were reviewed.. Continue same treatment. Continue with symptomatic treatment. Resume home medication. Monitor labs and vitals. DVT and GI prophylaxis. Further recommendations as per clinical course of the patient Dictation was produced using [employer] dictation software. please excuse any grammatical, word or spelling errors. Objective - Vital Signs Vital signs: Vital Signs Temp 98.3 F 03/24/24 07:32 Pulse 64 03/24/24 07:32 Resp 18 03/24/24 07:32 BP 131/91 03/24/24 07:32 Pulse Ox 98 03/24/24 07:32 FiO2 Intake & Output 03/23/24 03/24/24 03/24/24 18:59 06:59 18:59 Intake Total 1620 200 Balance 1620 200 Intake: Oral 1620 200 Other: # Voids 1 - Labs CBC & Chem 7: 03/24/24 04:49 03/24/24 04:49 Labs: Abnormal Lab Results - Last 24 Hours (Table) 03/24/24 Range/Units 04:49 Creatinine 0.53 L (0.66-1.25) mg/dL Microbiology - Last 24 Hours (Table) 03/20/24 17:40 Blood Culture Gram Stain - Preliminary Blood Blood Culture - Preliminary Staphylococcus epidermidis Molecular ID
--- NOTE | 2024-03-24 16:29 | P.PN ---
Subjective Progress Note Date: 03/23/24 Principal diagnosis: Reason for follow-up is right groin abscess and C. difficile colitis Patient is a 43-year-old male with a past medical history significant for anxiety PTSD current everyday smoker history of recurrent boil/sinus to the groin area now presenting to the hospital concerning for an area of swelling and drainage from the right groin area has been diagnosed with right groin abscess s/p drainage in the ER but no cultures were done also diagnosed with a C. difficile colitis. On today's evaluation that is 03/23/2024,the patient remains to be afebrile, patient is on room air not requiring supplemental oxygen and denies any shortness of breath no chest pain or cough.Patient denies having any nausea or vomiting, no abdominal pain pain to the right groin has decreased no further drainage and diarrhea has slowed down. The patient did have a creatinine 0.42 no CBC was done today Objective - Vital Signs Vital signs: Vital Signs Temp 98.2 F 03/23/24 07:23 Pulse 76 03/23/24 07:23 Resp 17 03/23/24 07:23 BP 139/90 03/23/24 07:23 Pulse Ox 98 03/23/24 07:23 FiO2 Intake & Output 03/22/24 03/23/24 03/23/24 18:59 06:59 18:59 Intake Total 360 Balance 360 Intake: Oral 360 Other: # Voids 4 1 # Bowel Movements 3 - Exam GENERAL DESCRIPTION: Middle-age male lying in bed in no distress RESPIRATORY SYSTEM: Unlabored breathing , decreased breath sounds at bases HEART: S1 S2 regular rate and rhythm , ABDOMEN: Soft , no tenderness EXTREMITIES: Right groin swelling induration has decreased no drainage - Labs CBC & Chem 7: 03/24/24 04:49 03/24/24 04:49 Labs: Abnormal Lab Results - Last 24 Hours (Table) 03/23/24 Range/Units 02:18 Creatinine 0.42 L (0.66-1.25) mg/dL Microbiology - Last 24 Hours (Table) 03/20/24 17:40 Blood Culture Gram Stain - Preliminary Blood Blood Culture - Preliminary Staphylococcus epidermidis Molecular ID Assessment and Plan (1) Abscess of right groin Current Visit: Yes Status: Acute Code(s): L02.214 - CUTANEOUS ABSCESS OF GROIN SNOMED Code(s): 04816672 (2) C. difficile colitis Current Visit: Yes Status: Acute Code(s): A04.72 - ENTEROCOLITIS D/T CLOSTRIDIUM DIFFICILE, NOT SPCF RECUR SNOMED Code(s): 331248193 (3) Positive blood culture Current Visit: Yes Status: Acute Code(s): R78.81 - BACTEREMIA SNOMED Code(s): 804329079 Plan: 1patient presented to hospital with recurrent swelling redness and drainage to the right groin area has been diagnosed with an abscess which has been drained in the ER unfortunately no cultures were done still have some purulent drainage and surgery is planned for possible drainage in the OR tomorrow at which time the culture should be obtained likely from gram-positive skin alhaji. 2positive blood culture with gram-positive cocci including possible skin contamination versus related to the right groin abscess. 3diarrhea and tested positive for C. difficile colitis. 4patient currently waiting for possible drainage of this abscess by surgery this afternoon we will continue patient on vancomycin 5patient to continue with oral vancomycin 250 g p.o. every 6 hours for the C. difficile colitis. Dictation was produced using [employer] dictation software. please excuse any grammatical, word or spelling errors. Time with Patient: Less than 30
--- NOTE | 2024-03-24 16:30 | P.PN ---
Subjective Progress Note Date: 03/24/24 Principal diagnosis: Reason for follow-up is right groin abscess and C. difficile colitis Patient is a 43-year-old male with a past medical history significant for anxiety PTSD current everyday smoker history of recurrent boil/sinus to the groin area now presenting to the hospital concerning for an area of swelling and drainage from the right groin area has been diagnosed with right groin abscess s/p drainage in the ER but no cultures were done also diagnosed with a C. difficile colitis. On today's evaluation that is 03/24/2024, the patient continues to be afebrile, the patient is on room air and breathing comfortably, the Pt denies having any chest pain or cough, the patient denies having any abdominal pain no vomiting, patient mention improvement the diarrhea pain to the right groin has decreased and no further drainage. Patient white count is 8.21, creatinine 0.53 Objective - Vital Signs Vital signs: Vital Signs Temp 98.3 F 03/24/24 07:32 Pulse 64 03/24/24 07:32 Resp 18 03/24/24 07:32 BP 131/91 03/24/24 07:32 Pulse Ox 98 03/24/24 07:32 FiO2 Intake & Output 03/23/24 03/24/24 03/24/24 18:59 06:59 18:59 Intake Total 1620 200 Balance 1620 200 Intake: Oral 1620 200 Other: # Voids 1 - Exam GENERAL DESCRIPTION: Middle-age male lying in bed in no distress RESPIRATORY SYSTEM: Unlabored breathing , decreased breath sounds at bases HEART: S1 S2 regular rate and rhythm , ABDOMEN: Soft , no tenderness EXTREMITIES: Right groin swelling induration has decreased no drainage - Labs CBC & Chem 7: 03/24/24 04:49 03/24/24 04:49 Labs: Abnormal Lab Results - Last 24 Hours (Table) 03/24/24 Range/Units 04:49 Creatinine 0.53 L (0.66-1.25) mg/dL Microbiology - Last 24 Hours (Table) 03/20/24 17:40 Blood Culture Gram Stain - Preliminary Blood Blood Culture - Preliminary Staphylococcus epidermidis Molecular ID Assessment and Plan (1) Abscess of right groin Current Visit: Yes Status: Acute Code(s): L02.214 - CUTANEOUS ABSCESS OF GROIN SNOMED Code(s): 77429609 (2) C. difficile colitis Current Visit: Yes Status: Acute Code(s): A04.72 - ENTEROCOLITIS D/T CLOSTRIDIUM DIFFICILE, NOT SPCF RECUR SNOMED Code(s): 605587460 (3) Positive blood culture Current Visit: Yes Status: Acute Code(s): R78.81 - BACTEREMIA SNOMED Code(s): 381713213 Plan: 1patient presented to hospital with recurrent swelling redness and drainage to the right groin area has been diagnosed with an abscess which has been drained in the ER unfortunately no cultures were done still have some purulent drainage and surgery is planned for possible drainage in the OR tomorrow at which time the culture should be obtained likely from gram-positive skin alhaji. 2positive blood culture with gram-positive cocci including possible skin contamination versus related to the right groin abscess. 3diarrhea and tested positive for C. difficile colitis. 4patient did improve as far as the right groin abscess cellulitis is concerned on vancomycin will transition to oral doxycycline on discharge 5patient to continue with oral vancomycin 250 g p.o. every 6 hours for the C. difficile colitis. Dictation was produced using [employer] dictation software. please excuse any grammatical, word or spelling errors. Time with Patient: Less than 30
[2024-03-25 07:40] VITALS: TEMP 98.4
[2024-03-25] MEDS: VANCOMYCIN TROUGH DUE 1 EACH MISC MISCELLANE ONE (11:27)
--- NOTE | 2024-03-25 12:26 | P.DS ---
Providers Date of admission: 03/20/24 20:12 Expected date of discharge: 03/25/24 Attending physician: Robert Bernard Consults: 03/21/24 14:41 Consult Physician Urgent Consulting Provider: Romy Edmondson Consult Reason/Comments: medical management positive c-diff Do you want consulting provider notified?: Yes 03/22/24 10:56 Consult Physician Routine Consulting Provider: Thelma Nogueira Consult Reason/Comments: Groin abscess, C. diff Do you want consulting provider notified?: Yes Primary care physician: Stated None Hospital Course: Discharge diagnosis 1. Possible perineal abscess 2. C. difficile colitis Hospital course This is a 43-year-old male who presented to hospital with a possible right groin abscess. Patient had the abscess drained in the ER a few days prior to admission. And had been on antibiotics. Abscess actually worsened. And came back to the ER and was placed on IV antibiotics. Patient seen by infectious disease. He is also been having loose watery stools and was found to have evidence of C. difficile colitis. Patient was managed medically. No further surgical intervention was warranted. The peritoneal abscess has improved with antibiotics. Patient is ambulating. He is afebrile. He is stable for discharge. Patient will be discharged on antibiotics as recommended per infectious disease. Please refer to chart for any further details. Physician Hotel Service Manager note has been reviewed by physician. Signing provider agrees with the documented findings, assessment, and plan of care. Patient Condition at Discharge: Stable Plan - Discharge Summary Discharge Rx Participant: No New Discharge Prescriptions: New Vancomycin HCl [Vancocin HCl] 250 mg PO QID 10 Days #40 cap Doxycycline [Vibramycin] 100 mg PO BID 10 Days #20 capsule Discharge Medication List Doxycycline [Vibramycin] 100 mg PO BID 10 Days #20 capsule 03/25/24 [Rx] Vancomycin HCl [Vancocin HCl] 250 mg PO QID 10 Days #40 cap 03/25/24 [Rx] Follow up Appointment(s)/Referral(s): None,Stated [Primary Care Provider] - 1-2 days Robert Bernard MD [STAFF PHYSICIAN] - 04/02/24 1:50 pm Activity/Diet/Wound Care/Special Instructions: Shower daily Discharge Disposition: HOME SELF-CARE
--- NOTE | 2024-03-25 12:28 | P.PN ---
Subjective Progress Note Date: 03/25/24 43-year-old male patient with no significant past medical history who presented to ER with a chief complaint of right groin swelling and infection. Patient has history of abscess that was drained few days ago and patient was started on antibiotics. Patient noticed that swelling was enlarging and pain was increasing. Patient denied any fever, chills, night sweats on presentation. Patient also reported watery diarrhea on presentation. Patient denied any melena, blood in the stool, abdominal pain, nausea or vomiting. Patient denied any dysuria urgency frequency weakness or numbness of extremities. Internal medicine consulted for medical management. Patient C. difficile test came back positive for which patient started on p.o. vancomycin. Infectious disease consulted. 03/23. Patient seen and examined. States he feels much better 03/24. Patient seen and examined. Blood work done this morning showed WBC 8.1, hemoglobin 15, platelet count 362. States he feels better. 03/25. Patient seen and examined. Plan for patient to discharge on oral antibiotics. Outpatient follow-up with ID and surgery REVIEW OF SYSTEMS: CONSTITUTIONAL: No fever, no malaise,. CARDIOVASCULAR: No chest pain, no palpitations, no syncope. PULMONARY: No shortness of breath, no cough, GASTROINTESTINAL: No diarrhea, no nausea, no vomiting, no abdominal pain. NEUROLOGICAL: No headaches, no weakness, PHYSICAL EXAMINATION: GENERAL: The patient is alert and oriented x3, not in any acute distress. Well developed, well nourished. HEENT: Pupils are round and equally reacting to light. EOMI. No scleral icterus. No conjunctival pallor. Normocephalic, atraumatic. No pharyngeal erythema. No thyromegaly. CARDIOVASCULAR: S1 and S2 present. No murmurs, rubs, or gallops. PULMONARY: Chest is clear to auscultation, no wheezing or crackles. ABDOMEN: Soft, nontender, nondistended, normoactive bowel sounds. No palpable organomegaly. MUSCULOSKELETAL: No joint swelling or deformity. EXTREMITIES: No cyanosis, clubbing, or pedal edema. NEUROLOGICAL: Gross neurological examination did not reveal any focal deficits. SKIN: Erythema of right perineal area Assessment and plan Right groin abscess: Positive blood culture: Staphylococcus Epi C. difficile colitis Presented with right groin pain and swelling, had previous I&D was on antibiotics, presented with worsening swelling and pain. CT scan showed no significant change in visualized portions with suspected abscess in the right scrotum/perineum compatible with history of infection. Monitor vital sign Monitor CBC Monitor CMP Continue pain management Continue p.o. vancomycin for C. difficile Continue pharmacy to dose IV vancomycin. Plan for patient be discharged on oral antibiotic ID following Surgery following Labs and medication were reviewed.. Continue same treatment. Continue with symptomatic treatment. Resume home medication. Monitor labs and vitals. DVT and GI prophylaxis. Further recommendations as per clinical course of the patient Dictation was produced using [employer] dictation software. please excuse any grammatical, word or spelling errors. Objective - Vital Signs Vital signs: Vital Signs Temp 98.4 F 03/25/24 07:34 Pulse 61 03/25/24 07:34 Resp 17 03/25/24 08:00 BP 137/88 03/25/24 07:34 Pulse Ox 98 03/25/24 07:34 FiO2 Intake & Output 03/24/24 03/25/24 03/25/24 18:59 06:59 18:59 Other: # Voids 3 1 # Bowel Movements 3 - Labs CBC & Chem 7: 03/24/24 04:49 03/24/24 04:49 Labs: Microbiology - Last 24 Hours (Table) 03/20/24 17:40 Blood Culture Gram Stain - Final Blood Blood Culture - Final Staphylococcus epidermidis Molecular ID
[2024-03-25 13:56] VITALS: BP 140/94; PULSE 74; RESP 16
[2024-03-26] MEDS ORDERED: VANCOMYCIN 1,500 MG in SODIUM CHLORIDE 0.9% 500 ML 500 ML IVPB SCH
--- NOTE | 2024-03-26 13:21 | P.PN ---
Subjective Progress Note Date: 03/25/24 Principal diagnosis: Reason for follow-up is right groin abscess and C. difficile colitis Patient is a 43-year-old male with a past medical history significant for anxiety PTSD current everyday smoker history of recurrent boil/sinus to the groin area now presenting to the hospital concerning for an area of swelling and drainage from the right groin area has been diagnosed with right groin abscess s/p drainage in the ER but no cultures were done also diagnosed with a C. difficile colitis. On today's evaluation that is 03/25/2024, Patient is afebrile patient is cur rently on room air and denies having any shortness of breath, the patient denies any chest pain or cough, the patient denies any nausea vomiting did not have any abdominal pain did have improvement in his diarrhea and pain to the right groin with no further drainage. Patient did have Vanco trough at 23.9 no CBC was done today Objective - Vital Signs Vital signs: Vital Signs Temp 98.4 F 03/25/24 07:34 Pulse 61 03/25/24 07:34 Resp 17 03/25/24 08:00 BP 137/88 03/25/24 07:34 Pulse Ox 98 03/25/24 07:34 FiO2 Intake & Output 03/24/24 03/25/24 03/25/24 18:59 06:59 18:59 Other: # Voids 3 1 # Bowel Movements 3 - Exam GENERAL DESCRIPTION: Middle-age male lying in bed in no distress RESPIRATORY SYSTEM: Unlabored breathing , decreased breath sounds at bases HEART: S1 S2 regular rate and rhythm , ABDOMEN: Soft , no tenderness EXTREMITIES: Right groin swelling induration has significantly decreased no drainage - Labs CBC & Chem 7: 03/24/24 04:49 03/24/24 04:49 Labs: Microbiology - Last 24 Hours (Table) 03/20/24 17:40 Blood Culture Gram Stain - Final Blood Blood Culture - Final Staphylococcus epidermidis Molecular ID Assessment and Plan (1) Abscess of right groin Status: Acute Code(s): L02.214 - CUTANEOUS ABSCESS OF GROIN SNOMED Code(s): 85357505 (2) C. difficile colitis Status: Acute Code(s): A04.72 - ENTEROCOLITIS D/T CLOSTRIDIUM DIFFICILE, NOT SPCF RECUR SNOMED Code(s): 846894782 (3) Positive blood culture Status: Acute Code(s): R78.81 - BACTEREMIA SNOMED Code(s): 222590541 Plan: 1patient presented to hospital with recurrent swelling redness and drainage to the right groin area has been diagnosed with an abscess which has been drained in the ER unfortunately no cultures were done still have some purulent drainage and surgery is planned for possible drainage in the OR tomorrow at which time the culture should be obtained likely from gram-positive skin alhaji. 2positive blood culture with gram-positive cocci including possible skin contamination versus related to the right groin abscess repeat blood culture negative. 3diarrhea and tested positive for C. difficile colitis. 4patient did have improvement as far as the right groin abscess cellulitis is concerned he will finish therapy with a 10-day course of oral doxycycline on discharge 5patient to continue with oral vancomycin 250 g p.o. every 6 hours to finish 10-day course of therapy discussed with MINE DEVELOPMENT ENGINEER [facility] Dictation was produced using [employer] dictation software. please excuse any grammatical, word or spelling errors. Time with Patient: Less than 30
== END 2024-03-25 15:42 | disposition home or self-care (01) | DRG 603 ==
LOC: EC 14:44 → 5NMEDONC 20:12
PROVIDERS: ADMIT Surgery; ATTEND Surgery
DX: L02.215 Cutaneous abscess of perineum (principal); A04.72 Enterocolitis due to Clostridium difficile, not specified as recurrent; R78.81 Bacteremia; Z28.310 Unvaccinated for COVID-19; F41.9 Anxiety disorder, unspecified; F43.10 Post-traumatic stress disorder, unspecified; F17.210 Nicotine dependence, cigarettes, uncomplicated; Z86.14 Personal history of Methicillin resistant Staphylococcus aureus infection; Z88.8 Allergy status to other drugs, medicaments and biological substances
CPT/HCPCS: 36415; 72193; 74177; 80053; 80202; 82150; 82565; 83605; 83690; 85025; 86140; 87040; 87077; 87186; 87324; 96365; 96375; 99285

== ENCOUNTER 2025-03-27 12:03 | Inpatient (IN) | payer MEDICARE, OTHER ==
--- NOTE | 2025-03-27 13:07 | ED ---
Skin/Abscess/FB HPI - General Chief complaint: Skin/Abscess/Foreign Body Stated complaint: Chest pain Time Seen by Provider: 03/27/25 12:16 Source: patient, RN notes reviewed Mode of arrival: ambulatory Limitations: no limitations - History of Present Illness Initial comments: This is a 44-year-old male presenting to the emergency department with multiple complaints. Patient states that over the past 2 days he began to experience discomfort to the left side of his scrotum with swelling, redness and reports this feels similar as when he has had abscess in the same location in the past. He also states he has been experiencing frequent bouts of watery diarrhea over the past few days that feels similar as when he has had C. difficile reporting a malodorous stool. He denies bloody stools or dark or sticky stools. Patient also reports that he started to experience mid sternal chest pain that was nonradiating this morning with no associated diaphoresis, palpitations, nausea or vomiting. endorses chills with no fevers. Denies history of hypertension, hyperlipidemia, diabetes. Denies current or recent antibiotic use. - Related Data Home Medications Medication Instructions Recorded Confirmed L.acidoph,Paracasei, B.lactis 1 cap PO DAILY 03/27/25 03/27/25 [Probiotic] Allergies Allergy/AdvReac Type Severity Reaction Status Date / Time guaifenesin Allergy Unknown Verified 03/27/25 14:00 Review of Systems ROS Statement: Those systems with pertinent positive or pertinent negative responses have been documented in the HPI. ROS Other: All systems not noted in ROS Statement are negative. Past Medical History Past Medical History: No Reported History History of Any Multi-Drug Resistant Organisms: C-DIFF, MRSA Date of last positivie culture/infection: 08/31/22 MDRO Source:: Groin Past Surgical History: Hernia Repair Additional Past Surgical History / Comment(s): hernia Additional Past Anesthesia/Blood Transfusion Reaction / Comment(s): Pt states that coming of anesthesia is hard for him, he states he is not himself for 3 to 4 days, feels disassociated during this time. Pt states "not alexa, feel like is in the wrong reality." Past Psychological History: Anxiety, PTSD Smoking Status: Current every day smoker Past Alcohol Use History: None Reported, Daily Past Drug Use History: Marijuana General Exam Limitations: no limitations Neck exam: Present: normal inspection. Absent: tenderness, meningismus, lymphadenopathy Respiratory exam: Present: normal lung sounds bilaterally. Absent: respiratory distress, wheezes, rales, rhonchi, stridor Cardiovascular Exam: Present: regular rate, normal rhythm, normal heart sounds. Absent: systolic murmur, diastolic murmur, rubs, gallop, clicks GI/Abdominal exam: Present: soft, normal bowel sounds. Absent: distended, tenderness, guarding, rebound, rigid exam: Present: testicular tenderness, scrotal swelling. Absent: urethral discharge, vertical testicular lie Extremities exam: Present: normal inspection, full ROM, normal capillary refill. Absent: tenderness, pedal edema, joint swelling, calf tenderness Back exam: Present: normal inspection. Absent: CVA tenderness (R), CVA tenderness (L) Course Vital Signs 03/27/25 03/27/25 12:12 15:40 Temperature 97.9 F Pulse Rate 122 H 90 Respiratory 20 Rate Blood Pressure 114/79 106/91 O2 Sat by Pulse 99 99 Oximetry Medical Decision Making - Medical Decision Making Was pt. sent in by a medical professional or institution (, PA, AIRPLANE CAPTAIN, urgent care, hospital, or group home...) When possible be specific @ -No Did you speak to anyone other than the patient for history (EMS, parent, family, police, friend...)? What history was obtained from this source @ -No Did you review nursing and triage notes (agree or disagree)? Why? @ -I reviewed and agree with nursing and triage notes Were old charts reviewed (outside hosp., previous admission, EMS record, old EKG, old radiological studies, urgent care reports/EKG's, group home records)? Report findings @ -No old charts were reviewed Differential Diagnosis (chest pain, altered mental status, abdominal pain women, abdominal pain men, vaginal bleeding, weakness, fever, dyspnea, syncope, headache, dizziness, GI bleed, back pain, seizure, CVA, palpatations, mental health, musculoskeletal)? @ -Differential Abdominal Pain Men: Appendicitis, cholecystitis, diverticulosis, ischemic bowel, pancreatitis, he patitis, UTI, gastroenteritis, AAA, incarcerated hernia, bowel obstruction, constipation, inflammatory bowel, hepatitis, peptic ulcer disease, splenic infarction, perforated viscus, testicular torsion, this is not meant to be an all-inclusive list EKG interpreted by me (3pts min.). @ -Completed at 1234 sinus tachycardia with a ventricular rate of 110, SD interval 146, QRS 82, QT 3 2, QTc 367. X-rays interpreted by me (1pt min.). @ -None done CT interpreted by me (1pt min.). @ -CT of the abdomen and pelvis with IV contrast reveals liquid stool throughout the rectum and colon suggesting diarrhea with no associated colonic wall thickening with nonspecific mildly enlarged left inguinal lymph nodes U/S interpreted by me (1pt. min.). @ -None done What testing was considered but not performed or refused? (CT, X-rays, U/S, labs)? Why? @ -None What meds were considered but not given or refused? Why? @ -None Did you discuss the management of the patient with other professionals (professionals i.e. , PA, AIRPLANE CAPTAIN, lab, RT, psych nurse, social work specialist, specialty department supervisor, teacher, hydrographical technical officer, major case detective)? Give summary @ -I spoke with sound physician, Dr. Boykin, was agreed to admit the patient for scrotal cellulitis and chest pain with cardiology and general surgery on consult. Was smoking cessation discussed for >3mins.? @ -No Was critical care preformed (if so, how long)? @ -No Were there social determinants of health that impacted care today? How? (Homelessness, low income, unemployed, alcoholism, drug addiction, transportation, low edu. Level, literacy, decrease access to med. care, care home, rehab)? @ -No Was there de-escalation of care discussed even if they declined (Discuss DNR or withdrawal of care, Hospice)? DNR status @ -No What co-morbidities impacted this encounter? (DM, HTN, Smoking, COPD, CAD, Cancer, CVA, ARF, Chemo, Hep., AIDS, mental health diagnosis, sleep apnea, morbid obesity)? @ -None Was patient admitted / discharged? Hospital course, mention meds given and route, prescriptions, significant lab abnormalities, going to OR and other pertinent info. @ -Admitted. 44-year-old male presenting with complaints of chest pain, scrotal discomfort and diarrhea. Patient is tachycardic on arrival. Scrotal examination reveals a left hemiscrotum that is erythematous and indurated with no obvious discernible abscess on palpation. He is provided with Toradol for pain relief and a liter of LR. Patient has a white count of 18 with left shift neutrophils of 14 and elevated H&H with a hemoglobin of 20 and hematocrit of 57.5. Mild transaminitis with an alk phos of 254, ALT of 71, AST of 85 and total bilirubin of 1.9. Troponin is not elevated. C. difficile is negative. CT imaging of the abdomen reveals nonspecific mildly enlarged left inguinal lymph nodes with no evidence of abscess with liquid stool throughout the colon and rectum. Patient will be admitted to internal medicine and started on IV vancomycin with consults to general surgery and cardiology. Will trend heart enzyme. Patient case discussed with my attending Dr. Siddiqui. patient admitted to Dr. Boykin Undiagnosed new problem with uncertain prognosis? @ -No Drug Therapy requiring intensive monitoring for toxicity (Heparin, Nitro, Insulin, Cardizem)? @ -No Were any procedures done? @ -No Diagnosis/symptom? @ -Scrotal cellulitis, chest pain, diarrhea Acute, or Chronic, or Acute on Chronic? @ -Acute Uncomplicated (without systemic symptoms) or Complicated (systemic symptoms)? @ -Complicated Side effects of treatment? @ -No Exacerbation, Progression, or Severe Exacerbation? @ -No Poses a threat to life or bodily function? How? (Chest pain, [place], [place], pneumonia, PE, COPD, DKA, ARF, appy, cholecystitis, CVA, Diverticulitis, Homicidal, Suicid al, threat to staff... and all critical care pts) @ -No - Lab Data Result diagrams: 03/27/25 13:07 03/27/25 13:07 Lab Results 03/27/25 03/27/25 03/27/25 Range/Units 13:07 13:07 13:07 WBC 18.02 H (4.50-10.00) 10*3/uL RBC 6.18 H (4.40-5.60) 10*6/uL Hgb 20.0 H* (13.0-17.0) g/dL Hct 57.5 H* (39.6-50.0) % MCV 93.0 (80.0-97.0) fL MCH 32.4 H (27.0-32.0) pg MCHC 34.8 (32.0-37.0) g/dL Plt Count 276 (140-440) 10*3/uL MPV 9.8 (9.5-12.2) fL Immature Gran % (Auto) 0.5 % Neutrophils % 82.4 % Lymphocytes % 6.5 % Monocytes % 9.1 % Eosinophils % 0.9 % Basophils % 0.6 % Immature Gran # 0.09 H (0.00-0.04) 10*3/uL Neutrophils # 14.84 H (1.80-7.70) 10*3/uL Lymphocytes # 1.17 (0.90-5.00) 10*3/uL Monocytes # 1.64 H (0.20-1.00) 10*3/uL Eosinophils # 0.17 (0.04-0.35) 10*3/uL Basophils # 0.11 H (0.00-0.10) 10*3/uL Manual Slide Review Performed PT 19.6 H (10.0-12.5) sec INR 1.9 H (<1.2) APTT 30.9 H (22.0-30.0) sec Sodium 133 L (137-145) mmol/L Potassium 4.5 (3.5-5.1) mmol/L Chloride 102 (98-107) mmol/L Carbon Dioxide 16 L (22-30) mmol/L Anion Gap 15 mmol/L BUN 6 L (9-20) mg/dL Creatinine 0.67 (0.66-1.25) mg/dL Est GFR (CKD-EPI)AfAm >90 (>60 ml/min/1.73 sqM) Est GFR (CKD-EPI)NonAf >90 (>60 ml/min/1.73 sqM) Glucose 139 H (74-99) mg/dL Plasma Lactic Acid Jayce (0.7-2.0) mmol/L Calcium 9.8 (8.4-10.2) mg/dL Magnesium 1.6 (1.6-2.3) mg/dL Total Bilirubin 1.9 H (0.2-1.3) mg/dL AST 85 H (17-59) U/L ALT 71 H (4-49) U/L Alkaline Phosphatase 254 H (38-126) U/L Troponin I (0.000-0.034) ng/mL C-Reactive Protein 3.3 H (<1.0) mg/dL Total Protein 8.7 H (6.3-8.2) g/dL Albumin 4.1 (3.5-5.0) g/dL C. difficile Tox (PCR) (Not Detectd) 03/27/25 03/27/25 03/27/25 Range/Units 13:07 13:07 13:15 WBC (4.50-10.00) 10*3/uL RBC (4.40-5.60) 10*6/uL Hgb (13.0-17.0) g/dL Hct (39.6-50.0) % MCV (80.0-97.0) fL MCH (27.0-32.0) pg MCHC (32.0-37.0) g/dL Plt Count (140-440) 10*3/uL MPV (9.5-12.2) fL Immature Gran % (Auto) % Neutrophils % % Lymphocytes % % Monocytes % % Eosinophils % % Basophils % % Immature Gran # (0.00-0.04) 10*3/uL Neutrophils # (1.80-7.70) 10*3/uL Lymphocytes # (0.90-5.00) 10*3/uL Monocytes # (0.20-1.00) 10*3/uL Eosinophils # (0.04-0.35) 10*3/uL Basophils # (0.00-0.10) 10*3/uL Manual Slide Review PT (10.0-12.5) sec INR (<1.2) APTT (22.0-30.0) sec Sodium (137-145) mmol/L Potassium (3.5-5.1) mmol/L Chloride (98-107) mmol/L Carbon Dioxide (22-30) mmol/L Anion Gap mmol/L BUN (9-20) mg/dL Creatinine (0.66-1.25) mg/dL Est GFR (CKD-EPI)AfAm (>60 ml/min/1.73 sqM) Est GFR (CKD-EPI)NonAf (>60 ml/min/1.73 sqM) Glucose (74-99) mg/dL Plasma Lactic Acid Jayce 1.7 (0.7-2.0) mmol/L Calcium (8.4-10.2) mg/dL Magnesium (1.6-2.3) mg/dL Total Bilirubin (0.2-1.3) mg/dL AST (17-59) U/L ALT (4-49) U/L Alkaline Phosphatase (38-126) U/L Troponin I <0.012 (0.000-0.034) ng/mL C-Reactive Protein (<1.0) mg/dL Total Protein (6.3-8.2) g/dL Albumin (3.5-5.0) g/dL C. difficile Tox (PCR) NEGATIVE (Not Detectd) Disposition Clinical Impression: Cellulitis of scrotum, Chest pain, Acute diarrhea Disposition: ADMITTED IP TO THIS [facility] Condition: Stable Referrals: None,Stated [Primary Care Provider] - 1-2 days Decision to Admit Reason: Admit from EC Decision Date: 03/27/25 Decision Time: 15:30
[2025-03-27] MEDS: LACTATED RINGERS 1,000 ML IV ONE (13:10)
[2025-03-27] MEDS: KETOROLAC 15 MG/ML 1 ML VIAL IVP STA (13:11)
[2025-03-27 13:17] LABS: Basophils # (A) 0.11 10*3/uL (0.00-0.10); Basophils % (A) 0.6 %; Eosinophils # (A) 0.17 10*3/uL (0.04-0.35); Eosinophils % (A) 0.9 %; Lymphocytes # (A) 1.17 10*3/uL (0.90-5.00); Lymphocytes % (A) 6.5 %; MCH 32.4 pg (27.0-32.0); MCHC 34.8 g/dL (32.0-37.0); MCV 93.0 fL (80.0-97.0); Monocytes # (A) 1.64 10*3/uL (0.20-1.00); Monocytes % (A) 9.1 %; Neutrophils # (A) 14.84 10*3/uL (1.80-7.70); Neutrophils % (A) 82.4 %; Platelet Count 276 10*3/uL (140-440); RBC 6.18 10*6/uL (4.40-5.60); RDW 16.0 % (11.5-14.5); WBC 18.02 10*3/uL (4.50-10.00)
[2025-03-27 13:23] LABS: ALT 71 U/L (4-49); AST 85 U/L (17-59); African American GFR (CKD) >90 (>60 ml/min/1.73 sqM); Albumin 4.1 g/dL (3.5-5.0); Alkaline Phosphatase 254 U/L (38-126); Anion Gap 15 mmol/L; Blood Urea Nitrogen 6 mg/dL (9-20); Calcium 9.8 mg/dL (8.4-10.2); Carbon Dioxide 16 mmol/L (22-30); Chloride 102 mmol/L (98-107); Glucose 139 mg/dL (74-99); Magnesium 1.6 mg/dL (1.6-2.3); Non-African American GFR(CKD) >90 (>60 ml/min/1.73 sqM); Potassium 4.5 mmol/L (3.5-5.1); Sodium 133 mmol/L (137-145); Total Protein 8.7 g/dL (6.3-8.2)
[2025-03-27 13:26] LABS: INR 1.9 (<1.2); Partial Thromboplastin Time 30.9 sec (22.0-30.0); Prothrombin Time 19.6 sec (10.0-12.5)
[2025-03-27 13:28] LABS: HGB 20.0 g/dL (13.0-17.0)
[2025-03-27 13:29] LABS: HCT 57.5 % (39.6-50.0)
--- NOTE | 2025-03-27 15:11 | CT ---
EXAMINATION TYPE: CT abdomen pelvis w con DATE OF EXAM: 03/27/2025 2:33 PM COMPARISON: CT abdomen/pelvis 03/21/2024. CLINICAL INDICATION: Male, 44 years old with history of groin swelling, erythema, hx infection; LEFT GROIN PAIN TECHNIQUE: Axial CT abdomen pelvis w con;Sagittal and coronal reformats were created on a separate w orkstation. Contrast used:100 mL of Isovue 300 with IV Contrast, (none if empty) Oral contrast used: without Oral Contrast (none if empty) CT DLP: 905 mGycm, Automated exposure control for dose reduction was used. FINDINGS: LOWER CHEST: Unremarkable ABDOMEN LIVER: Diffusely hypoattenuating parenchyma. GALLBLADDER AND BILE DUCTS: Unremarkable. PANCREAS: Unremarkable. SPLEEN: Unremarkable. ADRENAL GLANDS: Unremarkable. KIDNEYS AND URETERS: No evidence of hydronephrosis or renal calculus. The ureters are unremarkable. PELVIS BLADDER: No evidence for wall thickening or mass given limitations of exam. REPRODUCTIVE: Unremarkable. ABDOMEN & PELVIS STOMACH AND BOWEL: Stomach and duodenum are unremarkable. No evidence of bowel obstruction. Liquid s tool throughout the rectum and colon suggestive of diarrhea. PERITONEUM/RETROPERITONEUM: No evidence of pneumoperitoneum or free fluid. VASCULATURE: No evidence of aortic aneurysm. MUSCULOSKELETAL: No acute osseous abnormalities LYMPH NODES: No pathologic retroperitoneal or mesenteric adenopathy. Nonspecific mildly prominent lef t inguinal lymph nodes measuring to 11 mm in short access. SOFT TISSUE/ABDOMINAL WALL: Unremarkable IMPRESSION: 1. Liquid stool throughout the rectum and colon suggesting diarrhea. No associated colonic wall thic kening or acute mesenteric inflammation. 2. Nonspecific mildly enlarged left inguinal lymph nodes measuring up to 11 mm in short access, poss ibly reflecting reactive infectious/inflammatory etiology. 3. Hepatic steatosis. [facility], , 03/27/2025 3:08 PM
[2025-03-27] MEDS ORDERED: VANCOMYCIN IV PER PHARMACY 1 EACH MISC MISCELLANE PRN (16:00)
[2025-03-27] MEDS ORDERED: ONDANSETRON 4 MG/2 ML VIAL IVP PRN (16:04)
[2025-03-27] MEDS ORDERED: NALOXONE 0.4 MG/ML 1 ML VIAL IV PRN (16:04)
[2025-03-27] MEDS ORDERED: ACETAMINOPHEN TAB 325 MG TAB PO PRN (16:04)
[2025-03-27] MEDS: VANCOMYCIN 1,500 MG in SODIUM CHLORIDE 0.9% 500 ML 500 ML IVPB STA (17:07)
[2025-03-27] MEDS ORDERED: LORazepam 1 MG TAB PO PRN (17:15)
[2025-03-27] MEDS ORDERED: MORPHINE SULFATE 2 MG/ML SYRINGE IVP PRN (17:16)
[2025-03-27] MEDS ORDERED: MELATONIN 3 MG TABLET PO PRN (17:16)
--- NOTE | 2025-03-27 17:29 | P.HPIM ---
History of Present Illness H&P Date: 03/27/25 44 year old M with PMH of chronic alcohol abuse and nicotine dependence presents to the ED for scrotal pain. Patient reports swelling and redness on his left scrotum that has been getting worse over the past 2 days. Pain ranges from 3- 10/10. He also reports chills. Similar incident in 03/2024 complicated with C. diff colitis which was treated medically. Patient reports diarrhea on and off over the past 1.5 years. Symptoms worsened yesterday with > 20 watery bowel movements. No blood or melena. Never had a C- scope. Patient also reports chest pain that started yesterday. Pain is described as squeezing and stabbing in nature, left sided without radiation. No changes with deep inspiration or movement. He does report daily drinking 6-12 beers daily. Smokes 1.5-2 PPD. In the ED he underwent extensive evaluation. BP 114/79, HR 122, T 97.9F, RR 20, 99% on RA. CBC, Coag panel, CMP significant for WBC 18.02, RBC 6.18, Hg 20, Hct 57.5, PT 19.6, INR 1.9, APTT 30.9, Na 133, bicarb 16, BUN 6, glu 139, T. Bili 1.9, AST 85, ALT 71, alk phos 254. Lactic 1.7. Trop < 0.012. C> diff neg. CT AP showed liquid stool, left inguinal lymph node enlargement measuring 11 mm, hepatic steatosis. EKG showed sinus tachycardia with rate of 110. General: non toxic, no distress, appears at stated age Derm: warm, dry Head: atraumatic, normocephalic, symmetric Eyes: EOMI, no lid lag, anicteric sclera Mouth: no lip lesion, mucus membranes moist Cardiovascular: S1S2 reg, no murmur Lungs: Decreased BS bilateral, no rhonchi, no rales , no accessory muscle use Abd: Soft. Non tender to palpation. : Scrotal abscess and erythema with no discharge left scrotum Ext: no gross muscle atrophy, no edema, no contractures Neuro: no focal neuro deficits Psych: Alert and oriented. Based on my assessment of this patient, this patient meets a high complexity level of care. Sepsis secondary to scrotal abscess/cellulitis: Start Vancomycin dosed per pharmacy. Consult surgery and ID. NS at 100 cc/hr. Pain control with Toradol 15 mg IV Q6H, Morphine 2 mg IV Q4H PRN pain. Tylenol 650 mg PO Q6H PRN fever. Polycythemia, HypoNa and metabolic acidosis likely secondary to dehydration: IV hydration as above. Repeat CBC and BMP in the AM. Diarrhea: Repeat C. diff. May benefit from outpatient C-scope. Transaminitis likely due to EtOH abuse EtOH abuse: CIWA protocol with Ativan as needed. Start MVI, Thiamine and Folic acid. CODE STATUS: FULL CODE. DVT Prophylaxis: Lovenox SQ GI Prophylaxis: Designated medical POA if patient is not able to make medical decisions for themselves: I have reviewed the following hematology oncology consultant notes: ED note I have reviewed the results of the following tests: As above. I have ordered the following tests: As above. I have discussed the care of this patient with the following independent historian: I have independently interpreted the following test below: EKG I have discussed the management of this patient with the following physician: ED provider. Past Medical History Past Medical History: No Reported History History of Any Multi-Drug Resistant Organisms: C-DIFF, MRSA Date of last positivie culture/infection: 08/31/22 MDRO Source:: Groin Past Surgical History: Hernia Repair Additional Past Surgical History / Comment(s): hernia Additional Past Anesthesia/Blood Transfusion Reaction / Comment(s): Pt states that coming of anesthesia is hard for him, he states he is not himself for 3 to 4 days, feels disassociated during this time. Pt states "not alexa, feel like is in the wrong reality." Past Psychological History: Anxiety, PTSD Smoking Status: Current every day smoker Past Alcohol Use History: None Reported, Daily Past Drug Use History: Marijuana Medications and Allergies Home Medications Medication Instructions Recorded Confirmed Type L.acidoph,Paracasei, B.lactis 1 cap PO DAILY 03/27/25 03/27/25 History [Probiotic] Allergies Allergy/AdvReac Type Severity Reaction Status Date / Time guaifenesin Allergy Unknown Verified 03/27/25 14:00 Physical Exam Vitals: Vital Signs Temp Pulse Resp BP Pulse Ox 03/27/25 15:40 90 106/91 99 03/27/25 12:12 97.9 F 122 H 20 114/79 99 Intake and Output 03/27/25 03/27/25 03/27/25 06:59 14:59 22:59 Other: Weight 77.111 kg Results CBC & Chem 7: 03/27/25 13:07 03/27/25 13:07 Labs: Abnormal Lab Results - Last 24 Hours (Table) 03/27/25 03/27/25 03/27/25 Range/Units 13:07 13:07 13:07 WBC 18.02 H (4.50-10.00) 10*3/uL RBC 6.18 H (4.40-5.60) 10*6/uL Hgb 20.0 H* (13.0-17.0) g/dL Hct 57.5 H* (39.6-50.0) % MCH 32.4 H (27.0-32.0) pg Immature Gran # 0.09 H (0.00-0.04) 10*3/uL Neutrophils # 14.84 H (1.80-7.70) 10*3/uL Monocytes # 1.64 H (0.20-1.00) 10*3/uL Basophils # 0.11 H (0.00-0.10) 10*3/uL PT 19.6 H (10.0-12.5) sec INR 1.9 H (<1.2) APTT 30.9 H (22.0-30.0) sec Sodium 133 L (137-145) mmol/L Carbon Dioxide 16 L (22-30) mmol/L BUN 6 L (9-20) mg/dL Glucose 139 H (74-99) mg/dL Total Bilirubin 1.9 H (0.2-1.3) mg/dL AST 85 H (17-59) U/L ALT 71 H (4-49) U/L Alkaline Phosphatase 254 H (38-126) U/L C-Reactive Protein 3.3 H (<1.0) mg/dL Total Protein 8.7 H (6.3-8.2) g/dL
[2025-03-27] MEDS: SODIUM CHLORIDE 0.9% 1,000 ML IV SCH (19:34)
[2025-03-27] MEDS: HYDROcodone/APAP 5-325MG 1 EACH TAB PO PRN (19:34)
[2025-03-28] MEDS ORDERED: VANCOMYCIN 1,500 MG in SODIUM CHLORIDE 0.9% 500 ML 500 ML IVPB SCH ×2 (01:00)
[2025-03-28] MEDS: VANCOMYCIN 1,500 MG in SODIUM CHLORIDE 0.9% 500 ML 500 ML IVPB SCH (06:41)
[2025-03-28 07:48] LABS: Basophils # (A) 0.04 10*3/uL (0.00-0.10); Basophils % (A) 0.3 %; Eosinophils # (A) 0.38 10*3/uL (0.04-0.35); Eosinophils % (A) 3.0 %; HCT 49.9 % (39.6-50.0); HGB 17.4 g/dL (13.0-17.0); Lymphocytes # (A) 1.28 10*3/uL (0.90-5.00); Lymphocytes % (A) 10.0 %; MCH 33.4 pg (27.0-32.0); MCHC 34.9 g/dL (32.0-37.0); MCV 95.8 fL (80.0-97.0); Monocytes # (A) 1.26 10*3/uL (0.20-1.00); Monocytes % (A) 9.9 %; Neutrophils # (A) 9.71 10*3/uL (1.80-7.70); Neutrophils % (A) 76.2 %; Platelet Count 214 10*3/uL (140-440); RBC 5.21 10*6/uL (4.40-5.60); RDW 14.9 % (11.5-14.5); WBC 12.75 10*3/uL (4.50-10.00)
[2025-03-28] MEDS: THIAMINE 100 MG TAB PO SCH (08:06)
[2025-03-28] MEDS: ENOXAPARIN 40 MG/0.4 ML SYRINGE SQ SCH (08:06)
[2025-03-28] MEDS: FOLIC ACID 1 MG TAB PO SCH (08:06)
[2025-03-28] MEDS: MULTIVITAMINS, THERA 1 EACH TAB PO SCH (08:06)
[2025-03-28] MEDS: LORazepam 0.5 MG TAB PO PRN (08:06)
[2025-03-28 08:09] LABS: ALT 47 U/L (4-49); African American GFR (CKD) >90 (>60 ml/min/1.73 sqM); Albumin/Globulin Ratio 0.9; Anion Gap 10 mmol/L; Blood Urea Nitrogen 11 mg/dL (9-20); Calcium 8.8 mg/dL (8.4-10.2); Carbon Dioxide 16 mmol/L (22-30); Chloride 105 mmol/L (98-107); Globulin 3.7 g/dL; Glucose 79 mg/dL (74-99); Non-African American GFR(CKD) >90 (>60 ml/min/1.73 sqM); Sodium 131 mmol/L (137-145)
[2025-03-28 08:31] LABS: AST 58 U/L (17-59); Albumin 3.2 g/dL (3.5-5.0); Alkaline Phosphatase 174 U/L (38-126); Potassium 4.6 mmol/L (3.5-5.1); Total Protein 6.9 g/dL (6.3-8.2)
--- NOTE | 2025-03-28 11:46 | P.PN ---
Subjective Progress Note Date: 03/28/25 44 year old M with PMH of chronic alcohol abuse and nicotine dependence presents to the ED for scrotal pain. Patient reports swelling and redness on his left scrotum that has been getting worse over the past 2 days. Pain ranges from 3- 10/10. He also reports chills. Similar incident in 03/2024 complicated with C. diff colitis which was treated medically. Patient reports diarrhea on and off over the past 1.5 years. Symptoms worsened yesterday with > 20 watery bowel movements. No blood or melena. Never had a C- scope. Patient also reports chest pain that started yesterday. Pain is described as squeezing and stabbing in nature, left sided without radiation. No changes with deep inspiration or movement. He does report daily drinking 6-12 beers daily. Smokes 1.5-2 PPD. In the ED he underwent extensive evaluation. BP 114/79, HR 122, T 97.9F, RR 20, 99% on RA. CBC, Coag panel, CMP significant for WBC 18.02, RBC 6.18, Hg 20, Hct 57.5, PT 19.6, INR 1.9, APTT 30.9, Na 133, bicarb 16, BUN 6, glu 139, T. Bili 1.9, AST 85, ALT 71, alk phos 254. Lactic 1.7. Trop < 0.012. C> diff neg. CT AP showed liquid stool, left inguinal lymph node enlargement measuring 11 mm, hepatic steatosis. EKG showed sinus tachycardia with rate of 110. Started on Vancomycin and IV hydration and admitted for further workup and management. CBC and CMP significant for WBC 12.75, Hg 17.4, Na 131, bicarb 16, Cr 0.52, T. Bili 1.8, alk phos 174, alb 3.2. Trop < 0.012 x 2. 03/28 Patient was seen and examined. No acute events overnight. Reports discharge from scrotal abscess, purulent. Diarrhea has improved. CBC and CMP significant for WBC 12.75, Hg 17.4, Na 131, bicarb 16, Cr 0.52, T. Bili 1.8, alk phos 174, alb 3.2. Trop < 0.012 x 2. Maintained on Vancomycin IV dosed per pharmacy (D2). General: non toxic, no distress, appears at stated age Derm: warm, dry Head: atraumatic, normocephalic, symmetric Eyes: EOMI, no lid lag, anicteric sclera Mouth: no lip lesion, mucus membranes moist Cardiovascular: S1S2 reg, no murmur Lungs: Decreased BS bilateral, no rhonchi, no rales , no accessory muscle use Abd: Soft. Non tender to palpation. Ext: no gross muscle atrophy, no edema, no contractures Neuro: no focal neuro deficits Psych: Alert and oriented. Based on my assessment of this patient, this patient meets a high complexity level of care. Sepsis secondary to scrotal abscess/cellulitis: Continue Vancomycin dosed per pharmacy. Monitor renal function + trough while on Vancomycin IV. Consult surgery and ID. Switch NS to LR at 100 cc/hr. Pain control with Toradol 15 mg IV Q6H, Morphine 2 mg IV Q4H PRN pain. Tylenol 650 mg PO Q6H PRN fever. Wound cultures ordered. Polycythemia, HypoNa and metabolic acidosis likely secondary to dehydration: IV hydration as above. Repeat CBC and BMP in the AM. Diarrhea: Repeat C. diff. May benefit from outpatient C-scope. Transaminitis likely due to EtOH abuse with hepatic steatosis as seen on CT AP EtOH abuse: CIWA protocol with Ativan as needed. Start MVI, Thiamine and Folic acid. CODE STATUS: FULL CODE. DVT Prophylaxis: Lovenox SQ GI Prophylaxis: Designated medical POA if patient is not able to make medical decisions for themselves: I have reviewed the following contaminated land consultant notes: I have reviewed the results of the following tests: CBC, CMP. I have ordered the following tests: CBC, BMP, Vanc trough in the AM. Repeat C. diff ordered. I have discussed the care of this patient with the following independent historian: GLORIA. I have independently interpreted the following test below: I have discussed the management of this patient with the following physician: Objective - Vital Signs Vital signs: Vital Signs Temp 98 F 03/28/25 07:46 Pulse 87 03/28/25 07:46 Resp 16 03/28/25 07:46 BP 137/96 03/28/25 07:46 Pulse Ox 97 03/28/25 07:46 FiO2 Intake & Output 03/27/25 03/28/25 03/28/25 18:59 06:59 18:59 Weight 77.111 kg 77.111 kg - Labs CBC & Chem 7: 03/28/25 07:14 03/28/25 07:14 Labs: Abnormal Lab Results - Last 24 Hours (Table) 03/27/25 03/27/25 03/27/25 Range/Units 13:07 13:07 13:07 WBC 18.02 H (4.50-10.00) 10*3/uL RBC 6.18 H (4.40-5.60) 10*6/uL Hgb 20.0 H* (13.0-17.0) g/dL Hct 57.5 H* (39.6-50.0) % MCH 32.4 H (27.0-32.0) pg RDW (11.5-14.5) % Immature Gran # 0.09 H (0.00-0.04) 10*3/uL Neutrophils # 14.84 H (1.80-7.70) 10*3/uL Monocytes # 1.64 H (0.20-1.00) 10*3/uL Eosinophils # (0.04-0.35) 10*3/uL Basophils # 0.11 H (0.00-0.10) 10*3/uL PT 19.6 H (10.0-12.5) sec INR 1.9 H (<1.2) APTT 30.9 H (22.0-30.0) sec Sodium 133 L (137-145) mmol/L Carbon Dioxide 16 L (22-30) mmol/L BUN 6 L (9-20) mg/dL Creatinine (0.66-1.25) mg/dL Glucose 139 H (74-99) mg/dL Total Bilirubin 1.9 H (0.2-1.3) mg/dL AST 85 H (17-59) U/L ALT 71 H (4-49) U/L Alkaline Phosphatase 254 H (38-126) U/L C-Reactive Protein 3.3 H (<1.0) mg/dL Total Protein 8.7 H (6.3-8.2) g/dL Albumin (3.5-5.0) g/dL 03/28/25 03/28/25 Range/Units 07:14 07:14 WBC 12.75 H (4.50-10.00) 10*3/uL RBC (4.40-5.60) 10*6/uL Hgb 17.4 H (13.0-17.0) g/dL Hct (39.6-50.0) % MCH 33.4 H (27.0-32.0) pg RDW 14.9 H (11.5-14.5) % Immature Gran # 0.08 H (0.00-0.04) 10*3/uL Neutrophils # 9.71 H (1.80-7.70) 10*3/uL Monocytes # 1.26 H (0.20-1.00) 10*3/uL Eosinophils # 0.38 H (0.04-0.35) 10*3/uL Basophils # (0.00-0.10) 10*3/uL PT (10.0-12.5) sec INR (<1.2) APTT (22.0-30.0) sec Sodium 131 L (137-145) mmol/L Carbon Dioxide 16 L (22-30) mmol/L BUN (9-20) mg/dL Creatinine 0.52 L (0.66-1.25) mg/dL Glucose (74-99) mg/dL Total Bilirubin 1.8 H (0.2-1.3) mg/dL AST (17-59) U/L ALT (4-49) U/L Alkaline Phosphatase 174 H (38-126) U/L C-Reactive Protein (<1.0) mg/dL Total Protein (6.3-8.2) g/dL Albumin 3.2 L (3.5-5.0) g/dL
--- NOTE | 2025-03-28 13:13 | P.GSCN ---
History of Present Illness Consult date: 03/28/25 Reason for Consult: Left scrotal abscess History of present illness: Is a 44-year-old male who developed a spontaneous draining dermal abscess on the left scrotum. Patient has a previous history of scrotal infections. Past Medical History Past Medical History: No Reported History History of Any Multi-Drug Resistant Organisms: C-DIFF, MRSA Year Discovered:: 08/31/22 MDRO Source:: Groin Past Surgical History: Hernia Repair Additional Past Surgical History / Comment(s): hernia Additional Past Anesthesia/Blood Transfusion Reaction / Comm: Pt states that coming of anesthesia is hard for him, he states he is not himself for 3 to 4 days, feels disassociated during this time. Pt states "not alexa, feel like is in the wrong reality." Past Psychological History: Anxiety, PTSD Smoking Status: Current every day smoker Past Alcohol Use History: None Reported, Daily Additional Past Alcohol Use History / Comment(s): Pt states he used to drink a 12-pack per day but he stopped drinking alcohol 2 weeks ago. Past Drug Use History: Marijuana Medications and Allergies Home Medications Medication Instructions Recorded Confirmed Type L.acidoph,Paracasei, B.lactis 1 cap PO DAILY 03/27/25 03/27/25 History [Probiotic] Allergies Allergy/AdvReac Type Severity Reaction Status Date / Time guaifenesin Allergy Unknown Verified 03/27/25 14:00 Surgical - Exam Vital Signs Temp Pulse Resp BP Pulse Ox 97.9 F 122 H 20 114/79 99 03/27/25 12:12 03/27/25 12:12 03/27/25 12:12 03/27/25 12:12 03/27/25 12:12 - General no distress - Eyes PERRL - ENT normal pinna - Neck no masses - Respiratory normal expansion - Cardiovascular Rhythm: regular - Abdomen Abdomen: soft, non tender - Integumentary There is induration of the scrotum. There is a spontaneously draining abscess. Results - Labs 03/28/25 07:14 03/28/25 07:14 Abnormal Lab Results - Last 24 Hours (Table) 03/27/25 03/27/25 03/27/25 Range/Units 13:07 13:07 13:07 WBC 18.02 H (4.50-10.00) 10*3/uL RBC 6.18 H (4.40-5.60) 10*6/uL Hgb 20.0 H* (13.0-17.0) g/dL Hct 57.5 H* (39.6-50.0) % MCH 32.4 H (27.0-32.0) pg RDW (11.5-14.5) % Immature Gran # 0.09 H (0.00-0.04) 10*3/uL Neutrophils # 14.84 H (1.80-7.70) 10*3/uL Monocytes # 1.64 H (0.20-1.00) 10*3/uL Eosinophils # (0.04-0.35) 10*3/uL Basophils # 0.11 H (0.00-0.10) 10*3/uL PT 19.6 H (10.0-12.5) sec INR 1.9 H (<1.2) APTT 30.9 H (22.0-30.0) sec Sodium 133 L (137-145) mmol/L Carbon Dioxide 16 L (22-30) mmol/L BUN 6 L (9-20) mg/dL Creatinine (0.66-1.25) mg/dL Glucose 139 H (74-99) mg/dL Total Bilirubin 1.9 H (0.2-1.3) mg/dL AST 85 H (17-59) U/L ALT 71 H (4-49) U/L Alkaline Phosphatase 254 H (38-126) U/L C-Reactive Protein 3.3 H (<1.0) mg/dL Total Protein 8.7 H (6.3-8.2) g/dL Albumin (3.5-5.0) g/dL 03/28/25 03/28/25 Range/Units 07:14 07:14 WBC 12.75 H (4.50-10.00) 10*3/uL RBC (4.40-5.60) 10*6/uL Hgb 17.4 H (13.0-17.0) g/dL Hct (39.6-50.0) % MCH 33.4 H (27.0-32.0) pg RDW 14.9 H (11.5-14.5) % Immature Gran # 0.08 H (0.00-0.04) 10*3/uL Neutrophils # 9.71 H (1.80-7.70) 10*3/uL Monocytes # 1.26 H (0.20-1.00) 10*3/uL Eosinophils # 0.38 H (0.04-0.35) 10*3/uL Basophils # (0.00-0.10) 10*3/uL PT (10.0-12.5) sec INR (<1.2) APTT (22.0-30.0) sec Sodium 131 L (137-145) mmol/L Carbon Dioxide 16 L (22-30) mmol/L BUN (9-20) mg/dL Creatinine 0.52 L (0.66-1.25) mg/dL Glucose (74-99) mg/dL Total Bilirubin 1.8 H (0.2-1.3) mg/dL AST (17-59) U/L ALT (4-49) U/L Alkaline Phosphatase 174 H (38-126) U/L C-Reactive Protein (<1.0) mg/dL Total Protein (6.3-8.2) g/dL Albumin 3.2 L (3.5-5.0) g/dL Diabetes panel 03/27/25 03/28/25 Range/Units 13:07 07:14 Sodium 133 L 131 L (137-145) mmol/L Potassium 4.5 4.6 (3.5-5.1) mmol/L Chloride 102 105 (98-107) mmol/L Carbon Dioxide 16 L 16 L (22-30) mmol/L BUN 6 L 11 (9-20) mg/dL Creatinine 0.67 0.52 L (0.66-1.25) mg/dL Glucose 139 H 79 (74-99) mg/dL Calcium 9.8 8.8 (8.4-10.2) mg/dL AST 85 H 58 (17-59) U/L ALT 71 H 47 (4-49) U/L Alkaline Phosphatase 254 H 174 H (38-126) U/L Total Protein 8.7 H 6.9 (6.3-8.2) g/dL Albumin 4.1 3.2 L (3.5-5.0) g/dL Calcium panel 03/27/25 03/28/25 Range/Units 13:07 07:14 Calcium 9.8 8.8 (8.4-10.2) mg/dL Albumin 4.1 3.2 L (3.5-5.0) g/dL Pituitary panel 03/27/25 03/28/25 Range/Units 13:07 07:14 Sodium 133 L 131 L (137-145) mmol/L Potassium 4.5 4.6 (3.5-5.1) mmol/L Chloride 102 105 (98-107) mmol/L Carbon Dioxide 16 L 16 L (22-30) mmol/L BUN 6 L 11 (9-20) mg/dL Creatinine 0.67 0.52 L (0.66-1.25) mg/dL Glucose 139 H 79 (74-99) mg/dL Calcium 9.8 8.8 (8.4-10.2) mg/dL Adrenal panel 03/27/25 03/28/25 Range/Units 13:07 07:14 Sodium 133 L 131 L (137-145) mmol/L Potassium 4.5 4.6 (3.5-5.1) mmol/L Chloride 102 105 (98-107) mmol/L Carbon Dioxide 16 L 16 L (22-30) mmol/L BUN 6 L 11 (9-20) mg/dL Creatinine 0.67 0.52 L (0.66-1.25) mg/dL Glucose 139 H 79 (74-99) mg/dL Calcium 9.8 8.8 (8.4-10.2) mg/dL Total Bilirubin 1.9 H 1.8 H (0.2-1.3) mg/dL AST 85 H 58 (17-59) U/L ALT 71 H 47 (4-49) U/L Alkaline Phosphatase 254 H 174 H (38-126) U/L Total Protein 8.7 H 6.9 (6.3-8.2) g/dL Albumin 4.1 3.2 L (3.5-5.0) g/dL Assessment and Plan Assessment: Draining left scrotal dermal abscess. Patient to receive IV antibiotics
--- NOTE | 2025-03-28 14:14 | P.CRDCN ---
History of Present Illness Consult date: 03/28/25 History of present illness: HISTORY OF PRESENTING ILLNESS: 44-year-old with PMH of chronic alcohol use, tobacco use, marijuana use. He presented to the hospital because of left scrotal swelling and redness along with pain and pus discharge. Also complaining of some chest heaviness symptoms. For this cardiology was consulted. He denies any prior cardiovascular history. Similar incident happened in 03/2024 complicated with C. difficile colitis. Patient also has severe bilateral hand eczema. ....................................................................... ....................................................................... Pertient Vitals: Tensive BP 124/95, heart rate 70 Pertient Labs: Troponins are not elevated, BUN 6, creatinine 2.6, Hb 20 EKG: Normal sinus rhythm Pertient Imaging: CT abdomen shows hepatic steatosis, ........................... ................................................................................ ................................... Prior cardiac testing: [ ] ........................................................ ................................................................................ ...... REVIEW OF SYSTEMS: 14 point review of system is negative except what is mentioned above in HPI. ................. ................................................................................ ............................................. PHYSICAL EXAMINATION: Neck: Brisk carotid upstroke, no jugular venous distention. Lungs: Clear to auscultation. Heart: Regular rate and rhythm, S1-S2, , no murmur or rub. Abdomen: Soft nontender, positive bowel sounds. Extremities: No edema, intact distal pulses. Neuro: Alert, oritented, no focal deficits. Detailed neuro exam was not performed. .......................... ................................................................................ .................................... ASSESSMENT: # Atypical chest pain, Ruled out of ACS # Alcoholic fatty liver, with mild transaminitis # Scrotal cellulitis # Polycythemia likely secondary from smoking # 1.5 pack tobacco smoker, daily alcohol and marijuana user # Bilateral hand eczema PLAN: Obtain echocardiogram Check for lipids A1c TSH NT-proBNP levels Start aspirin 81 mg, Stop alcohol tobacco and marijuana use Once scrotal infection gets better, he should Get outpatient stress testing Ruslan Calero MD, FAC, VI Past Medical History Past Medical History: No Reported History History of Any Multi-Drug Resistant Organisms: C-DIFF, MRSA Date of last positivie culture/infection: 08/31/22 MDRO Source:: Groin Past Surgical History: Hernia Repair Additional Past Surgical History / Comment(s): hernia Additional Past Anesthesia/Blood Transfusion Reaction / Comment(s): Pt states that coming of anesthesia is hard for him, he states he is not himself for 3 to 4 days, feels disassociated during this time. Pt states "not alexa, feel like is in the wrong reality." Past Psychological History: Anxiety, PTSD Smoking Status: Current every day smoker Past Alcohol Use History: None Reported, Daily Additional Past Alcohol Use History / Comment(s): Pt states he used to drink a 12-pack per day but he stopped drinking alcohol 2 weeks ago. Past Drug Use History: Marijuana Medications and Allergies Home Medications Medication Instructions Recorded Confirmed Type L.acidoph,Paracasei, B.lactis 1 cap PO DAILY 03/27/25 03/27/25 History [Probiotic] Allergies Allergy/AdvReac Type Severity Reaction Status Date / Time guaifenesin Allergy Unknown Verified 03/27/25 14:00 Physical Exam Vitals: Vital Signs Temp Pulse Pulse Resp BP BP Pulse Ox 03/28/25 07:46 98 F 87 16 137/96 97 03/28/25 06:18 98.5 F 71 17 124/95 100 03/27/25 23:54 98.5 F 93 17 121/88 99 03/27/25 21:51 86 18 122/88 95 03/27/25 19:33 88 16 113/80 99 03/27/25 15:40 90 106/91 99 Intake and Output 03/27/25 03/28/25 03/28/25 22:59 06:59 14:59 Other: Voiding Method Toilet Weight 77.111 kg Results 03/28/25 07:14 03/28/25 07:14 Cardiac Enzymes 03/27/25 03/27/25 03/28/25 Range/Units 16:51 20:54 07:14 AST 58 (17-59) U/L Troponin I <0.012 <0.012 (0.000-0.034) ng/mL CBC 03/28/25 Range/Units 07:14 WBC 12.75 H (4.50-10.00) 10*3/uL RBC 5.21 (4.40-5.60) 10*6/uL Hgb 17.4 H (13.0-17.0) g/dL Hct 49.9 (39.6-50.0) % Plt Count 214 (140-440) 10*3/uL Comprehensive Metabolic Panel 03/28/25 Range/Units 07:14 Sodium 131 L (137-145) mmol/L Potassium 4.6 (3.5-5.1) mmol/L Chloride 105 (98-107) mmol/L Carbon Dioxide 16 L (22-30) mmol/L BUN 11 (9-20) mg/dL Creatinine 0.52 L (0.66-1.25) mg/dL Glucose 79 (74-99) mg/dL Calcium 8.8 (8.4-10.2) mg/dL AST 58 (17-59) U/L ALT 47 (4-49) U/L Alkaline Phosphatase 174 H (38-126) U/L Total Protein 6.9 (6.3-8.2) g/dL Albumin 3.2 L (3.5-5.0) g/dL Current Medications Generic Name Dose Route Start Last Admin Trade Name Freq PRN Reason Stop Dose Admin Acetaminophen 650 mg 03/27/25 16:04 Acetaminophen Tab 325 Mg Tab PO Q6HR PRN Mild Pain or Fever > 100.5 Hydrocodone Bitart/Acetaminophen 1 each 03/27/25 17:16 03/28/25 13:40 Hydrocodone/Apap 5-325mg 1 Each Tab PO 1 each Q4HR PRN Administration Moderate Pain (Scale 4 to 6) Aspirin 81 mg 03/28/25 14:15 Aspirin 81 Mg PO DAILY [facility] Enoxaparin Sodium 40 mg 03/28/25 09:00 03/28/25 08:06 Enoxaparin 40 Mg/0.4 Ml Syringe SQ 40 mg DAILY [facility] Administration Folic Acid 1 mg 03/28/25 09:00 03/28/25 08:06 Folic Acid 1 Mg Tab PO 1 mg DAILY [facility] Administration Vancomycin HCl 1,500 mg/ 500 mls @ 167 mls/hr 03/28/25 06:00 03/28/25 06:41 Sodium Chloride IVPB 167 mls/hr Q8H [facility] Administration Lactated Ringer's 1,000 mls @ 100 mls/hr 03/28/25 09:15 Lactated Ringers IV .Q10H [facility] Ketorolac Tromethamine 15 mg 03/27/25 16:04 Ketorolac 15 Mg/Ml 1 Ml Vial IVP 03/30/25 16:05 Q6HR PRN Moderate Pain (Scale 4 to 6) Lorazepam 0.5 mg 03/27/25 17:15 03/28/25 08:06 Lorazepam 0.5 Mg Tab PO 0.5 mg Q4HR PRN Administration Ciwa 4 To 5 Lorazepam 1 mg 03/27/25 17:15 Lorazepam 1 Mg Tab PO Q4HR PRN Ciwa 6 To 7 Lorazepam 2 mg 03/27/25 17:15 Lorazepam 1 Mg Tab PO Q2HR PRN Ciwa 10 or greater Lorazepam 2 mg 03/27/25 17:15 Lorazepam 1 Mg Tab PO Q3HR PRN Ciwa 8 To 9 Melatonin 3 mg 03/27/25 17:16 Melatonin 3 Mg Tablet PO HS PRN Insomnia Miscellaneous Information 0 each 03/29/25 05:00 Vancomycin Trough Due 1 Each Misc MISCELLANE 03/29/25 05:01 DIRECTED ONE Morphine Sulfate 2 mg 03/27/25 17:16 Morphine Sulfate 2 Mg/Ml Syringe IVP Q4HR PRN Severe Pain (Scale 7 to 10) Multivitamins 1 each 03/28/25 09:00 03/28/25 08:06 Multivitamins, Thera 1 Each Tab PO 1 each DAILY [facility] Administration Naloxone HCl 0.2 mg 03/27/25 16:04 Naloxone 0.4 Mg/Ml 1 Ml Vial IV Q2M PRN Opioid Reversal Ondansetron HCl 4 mg 03/27/25 16:04 Ondansetron 4 Mg/2 Ml Vial IVP Q8HR PRN Nausea And Vomiting Thiamine HCl 100 mg 03/28/25 09:00 03/28/25 08:06 Thiamine 100 Mg Tab PO 100 mg DAILY [facility] Administration Intake and Output 03/27/25 03/28/25 03/28/25 22:59 06:59 14:59 Other: Voiding Method Toilet Weight 77.111 kg Patient Weight 03/29/25 06:59 Weight 77.111 kg 03/28/25 07:14 03/28/25 07:14
[2025-03-28] MEDS: ASPIRIN 81 MG PO SCH (15:31)
[2025-03-28] MEDS: LACTATED RINGERS 1,000 ML IV SCH (15:32)
[2025-03-28 16:29] LABS: NT-Pro-B-Type Natriuretic Pept <20 pg/mL
--- NOTE | 2025-03-28 22:00 | P.CONS ---
History of Present Illness - Reason for Consult Consult date: 03/28/25 Scrotal abscess, cellulitis Requesting physician: Nicole Diamond - Chief Complaint Left-sided scrotal pain and swelling x days - History of Present Illness Patient is a 44-year-old male with a past medical history significant for recurrent skin soft tissue infection did have history of scrotal abscess about a year ago with MRSA and also have a history of C. difficile colitis presenting to the hospital for evaluation of increasing discomfort to the left side of the scrotal area that apparently started as a small pimple that has increased in size became more painful. The patient describes pain to be sharp moderate to severe intensity or radiation and did have spontaneous drainage today with some purulent drainage the patient also complaining of diarrhea they seem to have been chronic for him with multiple source of loose stools denies any blood or mucus in the stools no significant abdominal pain on presentation to the hospital patient was afebrile and no fever have recorded subsequently patient was not tachycardic hypotensive or hypoxic patient did have a white count of 18.02 creatinine 0.67 did have abdominal pelvis CT that was reported negative for any abscess patient was empirically started on vancomycin infectious he was consulted for further management of antibiotic therapy Review of Systems Positive point and negatives has been mentioned in the HPI, complete review of systems was performed and all other systems are negative Past Medical History Past Medical History: No Reported History History of Any Multi-Drug Resistant Organisms: C-DIFF, MRSA Year Discovered:: 08/31/22 MDRO Source:: Groin Past Surgical History: Hernia Repair Additional Past Surgical History / Comment(s): hernia Additional Past Anesthesia/Blood Transfusion Reaction / Comm: Pt states that coming of anesthesia is hard for him, he states he is not himself for 3 to 4 days, feels disassociated during this time. Pt states "not alexa, feel like is in the wrong reality." Past Psychological History: Anxiety, PTSD Smoking Status: Current every day smoker Past Alcohol Use History: None Reported, Daily Additional Past Alcohol Use History / Comment(s): Pt states he used to drink a 12-pack per day but he stopped drinking alcohol 2 weeks ago. Past Drug Use History: Marijuana Medications and Allergies Home Medications Medication Instructions Recorded Confirmed Type L.acidoph,Paracasei, B.lactis 1 cap PO DAILY 03/27/25 03/27/25 History [Probiotic] Allergies Allergy/AdvReac Type Severity Reaction Status Date / Time guaifenesin Allergy Unknown Verified 03/27/25 14:00 Physical Exam Vitals: Vital Signs Temp Pulse Pulse Resp BP BP Pulse Ox 03/28/25 07:46 98 F 87 16 137/96 97 03/28/25 06:18 98.5 F 71 17 124/95 100 03/27/25 23:54 98.5 F 93 17 121/88 99 03/27/25 21:51 86 18 122/88 95 03/27/25 19:33 88 16 113/80 99 03/27/25 15:40 90 106/91 99 Intake and Output 03/27/25 03/28/25 03/28/25 22:59 06:59 14:59 Other: Voiding Method Toilet Weight 77.111 kg GENERAL DESCRIPTION: Middle-age male lying in bed, no distress. No tachypnea or accessory muscle of respiration use. HEENT: Shows Pallor , no scleral icterus. Oral mucous membrane is dry. No pharyngeal erythema or thrush NECK: Trachea central, no thyromegaly. LUNGS: Unlabored breathing. Clear to auscultation anteriorly. No wheeze or crackle. HEART: S1, S2, regular rate and rhythm. No loud murmur ABDOMEN: Soft, no tenderness : Left scrotal area he did have a negative induration minimal pressure purulen t material came out which was cultured EXTREMITIES: No edema of feet. SKIN: No rash, no masses palpable. NEUROLOGICAL: The patient is awake, alert, oriented x3, mood and affect normal. Results CBC & Chem 7: 03/28/25 07:14 03/28/25 07:14 Labs: Abnormal Lab Results - Last 24 Hours (Table) 03/27/25 03/27/25 03/27/25 Range/Units 13:07 13:07 13:07 WBC 18.02 H (4.50-10.00) 10*3/uL RBC 6.18 H (4.40-5.60) 10*6/uL Hgb 20.0 H* (13.0-17.0) g/dL Hct 57.5 H* (39.6-50.0) % MCH 32.4 H (27.0-32.0) pg RDW (11.5-14.5) % Immature Gran # 0.09 H (0.00-0.04) 10*3/uL Neutrophils # 14.84 H (1.80-7.70) 10*3/uL Monocytes # 1.64 H (0.20-1.00) 10*3/uL Eosinophils # (0.04-0.35) 10*3/uL Basophils # 0.11 H (0.00-0.10) 10*3/uL PT 19.6 H (10.0-12.5) sec INR 1.9 H (<1.2) APTT 30.9 H (22.0-30.0) sec Sodium 133 L (137-145) mmol/L Carbon Dioxide 16 L (22-30) mmol/L BUN 6 L (9-20) mg/dL Creatinine (0.66-1.25) mg/dL Glucose 139 H (74-99) mg/dL Total Bilirubin 1.9 H (0.2-1.3) mg/dL AST 85 H (17-59) U/L ALT 71 H (4-49) U/L Alkaline Phosphatase 254 H (38-126) U/L C-Reactive Protein 3.3 H (<1.0) mg/dL Total Protein 8.7 H (6.3-8.2) g/dL Albumin (3.5-5.0) g/dL 03/28/25 03/28/25 Range/Units 07:14 07:14 WBC 12.75 H (4.50-10.00) 10*3/uL RBC (4.40-5.60) 10*6/uL Hgb 17.4 H (13.0-17.0) g/dL Hct (39.6-50.0) % MCH 33.4 H (27.0-32.0) pg RDW 14.9 H (11.5-14.5) % Immature Gran # 0.08 H (0.00-0.04) 10*3/uL Neutrophils # 9.71 H (1.80-7.70) 10*3/uL Monocytes # 1.26 H (0.20-1.00) 10*3/uL Eosinophils # 0.38 H (0.04-0.35) 10*3/uL Basophils # (0.00-0.10) 10*3/uL PT (10.0-12.5) sec INR (<1.2) APTT (22.0-30.0) sec Sodium 131 L (137-145) mmol/L Carbon Dioxide 16 L (22-30) mmol/L BUN (9-20) mg/dL Creatinine 0.52 L (0.66-1.25) mg/dL Glucose (74-99) mg/dL Total Bilirubin 1.8 H (0.2-1.3) mg/dL AST (17-59) U/L ALT (4-49) U/L Alkaline Phosphatase 174 H (38-126) U/L C-Reactive Protein (<1.0) mg/dL Total Protein (6.3-8.2) g/dL Albumin 3.2 L (3.5-5.0) g/dL Assessment and Plan (1) Scrotal abscess Current Visit: Yes Status: Acute Code(s): N49.2 - INFLAMMATORY DISORDERS OF SCROTUM SNOMED Code(s): 09649527 (2) Diarrhea Current Visit: Yes Status: Acute Code(s): R19.7 - DIARRHEA, UNSPECIFIED SNOMED Code(s): 03977613 Plan: 1patient presented to hospital pain swelling redness to left sinus scrotal area with evidence of scrotal abscess and cellulitis spontaneous drainage did have previous history of MRSA discussed after infection likely presenting MRSA skin abscess and cellulitis 2local culture has been obtained results will be followed 3-patient also with chronic diarrhea stool for C. difficile negative will check stool culture as well as Giardia and Cryptosporidium antigen 4-he will empirically treat with the vancomycin pharmacy to dose while waiting for the culture to finalize Will follow on a clinical condition and cultures to further adjust medication if needed Thank you for this consultation will follow this patient along with you Time with Patient: Greater than 30
[2025-03-29 03:23] LABS: Cholesterol 132.00 mg/dL (0.00-200.00); HDL Cholesterol 31.00 mg/dL (40.00-60.00); LDL Cholesterol,Calculated 70.4 mg/dL (0.0-131.0); T4, Free (Free Thyroxine) 1.15 ng/dL (0.80-1.80); Triglycerides 153.00 mg/dL (0.00-149.00); VLDL Calculation 30.60 mg/dL (5.00-40.00)
[2025-03-29 05:50] LABS: HCT 49.7 % (39.6-50.0); HGB 16.7 g/dL (13.0-17.0); MCH 32.5 pg (27.0-32.0); MCHC 33.6 g/dL (32.0-37.0); MCV 96.7 fL (80.0-97.0); Platelet Count 207 10*3/uL (140-440); RBC 5.14 10*6/uL (4.40-5.60); RDW 14.6 % (11.5-14.5); WBC 7.02 10*3/uL (4.50-10.00)
[2025-03-29 05:58] LABS: African American GFR (CKD) >90 (>60 ml/min/1.73 sqM); Anion Gap 7 mmol/L; Blood Urea Nitrogen 4 mg/dL (9-20); Calcium 8.6 mg/dL (8.4-10.2); Carbon Dioxide 23 mmol/L (22-30); Chloride 105 mmol/L (98-107); Glucose 80 mg/dL (74-99); Non-African American GFR(CKD) >90 (>60 ml/min/1.73 sqM); Potassium 3.8 mmol/L (3.5-5.1); Sodium 135 mmol/L (137-145)
[2025-03-29] MEDS: VANCOMYCIN TROUGH DUE 1 EACH MISC MISCELLANE ONE (06:42)
--- NOTE | 2025-03-29 10:50 | CA ---
Transthoracic Echo Report Name: Mathew Last Age: 44 Gender: M : 1980 Exam Date: 03/29/2025 07:58 Exam Location: [facility] Ht (in): 68 Wt (lb): 171 Ordering Physician: Ruslan Calero MD ([id number]) Attending/Referring Phys: Cotton Tier Sujata Soto RDCS Procedure CPT: Indications: angina pectoris Cardiac Hx: Technical Quality: Fair Contrast 1: Total Dose (mL): Contrast 2: Total Dose (mL): MEASUREMENTS (Male / Female) Normal Values 2D ECHO LV Diastolic Diameter PLAX 4.5 cm 4.2 - 5.9 / 3.9 - 5.3 cm LV Systolic Diameter PLAX 2.8 cm IVS Diastolic Thickness 1.0 cm 0.6 - 1.0 / 0.6 - 0.9 cm LVPW Diastolic Thickness 0.9 cm 0.6 - 1.0 / 0.6 - 0.9 cm LV Relative Wall Thickness 0.4 RV Internal Dim ED PLAX 2.2 cm LA Systolic Diameter LX 3.1 cm 3.0 - 4.0 / 2.7 - 3.8 cm LV Diastolic Volume MOD 4C 78.5 cm??? LV Systolic Volume MOD 4C 21.7 cm??? LV Ejection Fraction MOD 4C 72.3 % LV Cardiac Index MOD 4C 2309.3 cm???/min???m??? LV Diastolic Length 4C 7.8 cm LV Systolic Length 4C 6.2 cm M-MODE Aortic Root Diameter MM 2.8 cm LA Systolic Diameter MM 3.1 cm LA Ao Ratio MM 1.1 AV Cusp Separation MM 1.4 cm DOPPLER MV Area PHT 3.4 cm??? Mitral E Point Velocity 68.5 cm/s Mitral A Point Velocity 79.6 cm/s Mitral E to A Ratio 0.9 MV Deceleration Time 224.5 ms TR Peak Velocity 177.4 cm/s TR Peak Gradient 12.6 mmHg Right Ventricular Systolic Press 17.6 mmHg FINDINGS Left Ventricle Left ventricular ejection fraction is estimated at 55-60%. Normal left ventricular systolic function with no obvious regional wall motion abnormalities. Left ventricular cavity size normal. Left ventricular wall thickness normal. Right Ventricle Normal right ventricular size and function. Right ventricular systolic pressure within normal limits. Right Atrium Normal right atrial size. Left Atrium Normal left atrial size. Mitral Valve Structurally normal mitral valve. Trace mitral regurgitation. No mitral stenosis. Aortic Valve Trileaflet aortic valve. No aortic valve stenosis or regurgitation. Tricuspid Valve Structurally normal tricuspid valve. Trace tricuspid regurgitation. No tricuspid stenosis. Pulmonic Valve Trace pulmonic regurgitation. No pulmonic stenosis.pulmonic valve not well visualized. Pericardium No pericardial or pleural effusion. Aorta Normal size aortic root and proximal ascending aorta. CONCLUSIONS Technically difficult study. Normal left ventricular size and systolic function Trace mitral and tricuspid regurgitation Previewed by: Dr. Glendy Kyle MD (Electronically Signed) Final Date: 29 March 2025 10:49
--- NOTE | 2025-03-29 11:16 | P.PN ---
Subjective Progress Note Date: 03/29/25 Reason for consult is Left-sided scrotal pain and swelling x days Patient is a 44-year-old male with a past medical history significant for recurrent skin soft tissue infection did have history of scrotal abscess about a year ago with MRSA and also have a history of C. difficile colitis presenting to the hospital for evaluation of increasing discomfort to the left side of the scrotal area that apparently started as a small pimple that has increased in size became more painful. 03/29/2025 patient seen and examined at bedside. No acute events overnight. No new complaints or symptoms. Labs: C. difficile, Giardia, Cryptosporidium negative, creatinine 0.5, Vanco trough 19.6 Objective - Vital Signs Vital signs: Vital Signs Temp 98.0 F 03/29/25 01:05 Pulse 89 03/29/25 01:05 Resp 17 03/29/25 01:05 BP 144/88 03/29/25 01:05 Pulse Ox 99 03/29/25 01:05 FiO2 Intake & Output 03/28/25 03/29/25 03/29/25 18:59 06:59 18:59 Intake Total 240 Balance 240 Weight 77.111 kg Intake: Oral 240 Other: Voiding Method Toilet Toilet # Voids 3 2 # Bowel Movements 1 - Exam Physical examination: Vital signs reviewed General: non toxic, no distress, appears at stated age Head: atraumatic, normocephalic, symmetric Mouth: no lip lesion, mucus membranes moist Cardiovascular: S1S2 reg, no murmur Lungs: CTA bilateral, no rhonchi, no rales, no accessory muscle use Abdominal: soft, nondistended, nontender to palpation, no guarding : left scrotum erythematous with improved swelling, tenderness of palpation, tract noted on the left side above the scrotum showed light liquid discharge, other tracts noted beneath the scrotum without discharge or swelling Ext: muscle strength 5 out of 5 in all 4 extremities grossly, no gross muscle atrophy, no contractures, positive dorsalis pedis pulse bilateral, no edema Neuro: no gross focal neuro deficits Psych: Alert and oriented x3, appropriate affect and mood - Labs CBC & Chem 7: 03/29/25 04:59 03/29/25 04:59 Labs: Abnormal Lab Results - Last 24 Hours (Table) 03/28/25 03/28/2525 Range/Units 07:14 15:50 04:59 MCH 32.5 H (27.0-32.0) pg RDW 14.6 H (11.5-14.5) % Sodium 131 L (137-145) mmol/L Carbon Dioxide 16 L (22-30) mmol/L BUN (9-20) mg/dL Creatinine 0.52 L (0.66-1.25) mg/dL Total Bilirubin 1.8 H (0.2-1.3) mg/dL Alkaline Phosphatase 174 H (38-126) U/L Albumin 3.2 L (3.5-5.0) g/dL Triglycerides 153.00 H (0.00-149.00) mg/dL HDL Cholesterol 31.00 L (40.00-60.00) mg/dL TSH 8.890 H (0.465-4.680) mIU/L 03/29/25 Range/Units 04:59 MCH (27.0-32.0) pg RDW (11.5-14.5) % Sodium 135 L (137-145) mmol/L Carbon Dioxide (22-30) mmol/L BUN 4 L (9-20) mg/dL Creatinine 0.50 L (0.66-1.25) mg/dL Total Bilirubin (0.2-1.3) mg/dL Alkaline Phosphatase (38-126) U/L Albumin (3.5-5.0) g/dL Triglycerides (0.00-149.00) mg/dL HDL Cholesterol (40.00-60.00) mg/dL TSH (0.465-4.680) mIU/L Microbiology - Last 24 Hours (Table) 03/28/25 13:17 Gram Stain - Preliminary Other - Other 03/27/25 17:00 Blood Culture - Preliminary Blood Assessment and Plan (1) Diarrhea Current Visit: Yes Status: Acute Code(s): R19.7 - DIARRHEA, UNSPECIFIED SNOMED Code(s): 58793258 (2) Scrotal abscess Current Visit: Yes Status: Acute Code(s): N49.2 - INFLAMMATORY DISORDERS OF SCROTUM SNOMED Code(s): 97270953 Plan: Patient presented to hospital pain swelling redness to left sinus scrotal area with evidence of scrotal abscess and cellulitis spontaneous drainage did have previous history of MRSA discussed after infection likely presenting MRSA skin abscess and cellulitis Local culture has been obtained results will be followed -Patient also with chronic diarrhea, stool negative for C. difficile, Giardia and Cryptosporidium antigen. Stool cultures pending -We will empirically treat with the vancomycin pharmacy to dose while waiting for the culture to finalize Lisa Layne MD PGY-2 Infectious disease service Patient was personally seen and examined care discussed in detail with the resident physician documentation reviewed and agree, patient mention improvement to the testicular pain swelling and drainage cultures are currently pending we will treat with vancomycin while waiting for the culture to finalize detailed discussion with the patient how to prevent recurrent skin soft tissue infection secondary to MRSA Dictation was produced using [employer] dictation software. please excuse any grammatical, word or spelling errors. Time with Patient: Less than 30
--- NOTE | 2025-03-29 12:05 | P.PN ---
Subjective HISTORY OF PRESENT ILLNESS: 44-year-old with PMH of chronic alcohol use, tobacco use, marijuana use. He presented to the hospital because of left scrotal swelling and redness along with pain and pus discharge. Also complaining of some chest heaviness symptoms. For this cardiology was consulted. He denies any prior cardiovascular history. Similar incident happened in 03/2024 complicated with C. difficile colitis. Patient also has severe bilateral hand eczema. Pertient Vitals: Tensive BP 124/95, heart rate 70 Pertient Labs: Troponins are not elevated, BUN 6, creatinine 2.6, Hb 20 EKG: Normal sinus rhythm Pertient Imaging: CT abdomen shows hepatic steatosis, 03/29/2025 Patient examined this morning at the bedside. Patient currently denies any chest pain or pressure. He denies any shortness of breath. He does report having some anxiety this morning at the time of examination. Echocardiogram completed revealing ejection fraction 55 to 60%, no obvious regional wall motion abnormalities, trace MR, trace TR. PHYSICAL EXAM: VITAL SIGNS: Reviewed. GENERAL: Well-developed in no acute distress. NECK: Supple. No JVD or thyromegaly LUNGS: Respirations even and unlabored. Lungs essentially clear to auscultation bilaterally. HEART: Regular rate and rhythm. S1 and S2 heard. EXTREMITIES: Normal range of motion. No clubbing or cyanosis. Peripheral pulses intact. No lower extremity edema ASSESSMENT: # Atypical chest pain, Ruled out of ACS # Alcoholic fatty liver, with mild transaminitis # Scrotal cellulitis # Polycythemia likely secondary from smoking # 1.5 pack tobacco smoker, daily alcohol and marijuana user # Bilateral hand eczema PLAN: Continue current cardiac medications including aspirin 81 mg daily Recommend abstinence from alcohol, marijuana, and nicotine use Recommend outpatient stress testing once patient's acute issues have resolved Patient is currently stable from a cardiac standpoint We will follow on an as needed basis. Please call with questions or concerns. Nurse practitioner note has been reviewed by physician. Signing provider agrees with the documented findings, assessment, and plan of care documented by OPERATIONS PROCESSOR as a scribe. Objective - Vital Signs Vital signs: Vital Signs Temp 97.6 F 03/29/25 07:24 Pulse 74 03/29/25 07:24 Resp 16 03/29/25 07:24 BP 148/91 03/29/25 07:24 Pulse Ox 99 03/29/25 07:24 FiO2 Intake & Output 07/27/25 07/28/25 07/28/25 18:59 06:59 18:59 Intake Total 240 118 Balance 240 118 Weight 77.111 kg Intake: Oral 240 118 Other: Voiding Method Toilet Toilet # Voids 3 2 # Bowel Movements 1 - Labs CBC & Chem 7: 03/29/25 04:59 03/29/25 04:59 Labs: Abnormal Lab Results - Last 24 Hours (Table) 03/28/25 03/29/25 03/29/25 Range/Units 15:50 04:59 04:59 MCH 32.5 H (27.0-32.0) pg RDW 14.6 H (11.5-14.5) % Sodium 135 L (137-145) mmol/L BUN 4 L (9-20) mg/dL Creatinine 0.50 L (0.66-1.25) mg/dL Triglycerides 153.00 H (0.00-149.00) mg/dL HDL Cholesterol 31.00 L (40.00-60.00) mg/dL TSH 8.890 H (0.465-4.680) mIU/L Microbiology - Last 24 Hours (Table) 03/28/25 13:17 Gram Stain - Preliminary Other - Other 03/27/25 17:00 Blood Culture - Preliminary Blood
--- NOTE | 2025-03-29 13:07 | P.PN ---
Subjective Progress Note Date: 03/29/25 44 year old M with PMH of chronic alcohol abuse and nicotine dependence presents to the ED for scrotal pain. Patient reports swelling and redness on his left scrotum that has been getting worse over the past 2 days. Pain ranges from 3- 10/10. He also reports chills. Similar incident in 03/2024 complicated with C. diff colitis which was treated medically. Patient reports diarrhea on and off over the past 1.5 years. Symptoms worsened yesterday with > 20 watery bowel movements. No blood or melena. Never had a C- scope. Patient also reports chest pain that started yesterday. Pain is described as squeezing and stabbing in nature, left sided without radiation. No changes with deep inspiration or movement. He does report daily drinking 6-12 beers daily. Smokes 1.5-2 PPD. In the ED he underwent extensive evaluation. BP 114/79, HR 122, T 97.9F, RR 20, 99% on RA. CBC, Coag panel, CMP significant for WBC 18.02, RBC 6.18, Hg 20, Hct 57.5, PT 19.6, INR 1.9, APTT 30.9, Na 133, bicarb 16, BUN 6, glu 139, T. Bili 1.9, AST 85, ALT 71, alk phos 254. Lactic 1.7. Trop < 0.012. C> diff neg. CT AP showed liquid stool, left inguinal lymph node enlargement measuring 11 mm, hepatic steatosis. EKG showed sinus tachycardia with rate of 110. Started on Vancomycin and IV hydration and admitted for further workup and management. 03/29 Patient was seen and examined. No acute events overnight. Reports discharge from scrotal abscess, purulent, WCx is pending. Diarrhea has improved. CBC and BMP significant for Na 135, BUN 4, Cr 0.5. Maintained on Vancomycin IV dosed per pharmacy (D3). Echo shows EF 55-60%. Repeat C. diff negative as well. General: non toxic, no distress, appears at stated age Derm: warm, dry Head: atraumatic, normocephalic, symmetric Eyes: EOMI, no lid lag, anicteric sclera Mouth: no lip lesion, mucus membranes moist Cardiovascular: S1S2 reg, no murmur Lungs: Decreased BS bilateral, no rhonchi, no rales , no accessory muscle use Abd: Soft. Non tender to palpation. Ext: no gross muscle atrophy, no edema, no contractures Neuro: no focal neuro deficits Psych: Alert and oriented. Based on my assessment of this patient, this patient meets a high complexity level of care. Sepsis secondary to scrotal abscess/cellulitis: Continue Vancomycin dosed per pharmacy. Monitor renal function + trough while on Vancomycin IV. Surgery and ID on board. Continue LR at 100 cc/hr. Pain control with Toradol 15 mg IV Q6H, Morphine 2 mg IV Q4H PRN pain. Tylenol 650 mg PO Q6H PRN fever. Wound cultures pending. Chest pain: ACS ruled out. Echo as above. Cardiology recommending outpatient stress test. HypoNa likely secondary to dehydration: IV hydration as above. Diarrhea: Repeat C. diff. Giardia and stool Cx ordered by ID. May benefit from outpatient C-scope. Transaminitis likely due to EtOH abuse with hepatic steatosis as seen on CT AP EtOH abuse: CIWA protocol with Ativan as needed. Continue MVI, Thiamine and Folic acid. Resolved: Polycythermia, metabolic acidosis Discussd with Dr. Nogueira, continue Vancomycin pending WCx. May benefit from Derm referral outpatient. May benefit from outpatient C-scope. Cardiology recommending outpatient stress test. Needs to establish care with PCP. CODE STATUS: FULL CODE. DVT Prophylaxis: Lovenox SQ GI Prophylaxis: Designated medical POA if patient is not able to make medical decisions for themselves: I have reviewed the following outreach consultant notes: Cardiology, ID I have reviewed the results of the following tests: CBC, BMP, Echo, C. diff. I have ordered the following tests: BMP and Vanc trough in the AM. I have discussed the care of this patient with the following independent historian: I have independently interpreted the following test below: I have discussed the management of this patient with the following physician: Dr. Nogueira. Objective - Vital Signs Vital signs: Vital Signs Temp 97.6 F 03/29/25 07:24 Pulse 74 03/29/25 07:24 Resp 16 03/29/25 07:24 BP 148/91 03/29/25 07:24 Pulse Ox 99 03/29/25 07:24 FiO2 Intake & Output 03/28/25 03/29/25 03/29/25 18:59 06:59 18:59 Intake Total 240 118 Balance 240 118 Weight 77.111 kg Intake: Oral 240 118 Other: Voiding Method Toilet Toilet # Voids 3 2 # Bowel Movements 1 - Labs CBC & Chem 7: 03/29/25 04:59 03/29/25 04:59 Labs: Abnormal Lab Results - Last 24 Hours (Table) 03/28/25 03/29/25 03/29/25 Range/Units 15:50 04:59 04:59 MCH 32.5 H (27.0-32.0) pg RDW 14.6 H (11.5-14.5) % Sodium 135 L (137-145) mmol/L BUN 4 L (9-20) mg/dL Creatinine 0.50 L (0.66-1.25) mg/dL Triglycerides 153.00 H (0.00-149.00) mg/dL HDL Cholesterol 31.00 L (40.00-60.00) mg/dL TSH 8.890 H (0.465-4.680) mIU/L Microbiology - Last 24 Hours (Table) 03/28/25 13:17 Gram Stain - Preliminary Other - Other 03/27/25 17:00 Blood Culture - Preliminary Blood
--- NOTE | 2025-03-29 15:39 | P.PN ---
Subjective Progress Note Date: 03/29/25 SURGICAL PROGRESS NOTE CHIEF COMPLAINT: Left dermal abscess of the scrotum HISTORY OF PRESENT ILLNESS: Patient reports he is feeling better. Decreased erythema. No longer having drainage. Improving with IV antibiotics. Afebrile. Patient does report having issues with multiple recurrent dermal abscesses in the groin also had abscesses in the axilla in the past as well. PHYSICAL EXAM: VITAL SIGNS: Reviewed. GENERAL: Well-developed in no acute distress. Skin: Scrotal induration improved. No further drainage at this time. Decreased tenderness. ASSESSMENT: 1. Left scrotal dermal abscess status post spontaneous drainage PLAN: - Continue antibiotics per ID service - No surgical intervention planned - Agree with outpatient dermatology evaluation Physician Tig Welder note has been reviewed by physician. Signing provider agrees with the documented findings, assessment, and plan of care. Objective - Vital Signs Vital signs: Vital Signs Temp 97.6 F 03/29/25 07:24 Pulse 74 03/29/25 07:24 Resp 16 03/29/25 07:24 BP 148/91 03/29/25 07:24 Pulse Ox 99 03/29/25 07:24 FiO2 Intake & Output 03/28/25 03/29/25 03/29/25 18:59 06:59 18:59 Intake Total 240 118 Balance 240 118 Weight 77.111 kg Intake: Oral 240 118 Other: Voiding Method Toilet Toilet # Voids 3 2 # Bowel Movements 1 - Labs CBC & Chem 7: 03/29/25 04:59 03/29/25 04:59 Labs: Abnormal Lab Results - Last 24 Hours (Table) 03/28/25 03/29/25 03/29/25 Range/Units 15:50 04:59 04:59 MCH 32.5 H (27.0-32.0) pg RDW 14.6 H (11.5-14.5) % Sodium 135 L (137-145) mmol/L BUN 4 L (9-20) mg/dL Creatinine 0.50 L (0.66-1.25) mg/dL Triglycerides 153.00 H (0.00-149.00) mg/dL HDL Cholesterol 31.00 L (40.00-60.00) mg/dL TSH 8.890 H (0.465-4.680) mIU/L Microbiology - Last 24 Hours (Table) 03/28/25 13:17 Gram Stain - Preliminary Other - Other 03/27/25 17:00 Blood Culture - Preliminary Blood
[2025-03-29] MEDS: LORazepam 1 MG TAB PO PRN (21:14)
[2025-03-30 06:35] LABS: Carbon Dioxide 23 mmol/L (22-30); Chloride 108 mmol/L (98-107); Glucose 69 mg/dL (74-99); Potassium 3.6 mmol/L (3.5-5.1); Sodium 137 mmol/L (137-145)
[2025-03-30 06:36] LABS: African American GFR (CKD) >90 (>60 ml/min/1.73 sqM); Anion Gap 6 mmol/L; Blood Urea Nitrogen 2 mg/dL (9-20); Calcium 8.6 mg/dL (8.4-10.2); Non-African American GFR(CKD) >90 (>60 ml/min/1.73 sqM)
[2025-03-30] MEDS: KETOROLAC 15 MG/ML 1 ML VIAL IVP PRN (09:55)
--- NOTE | 2025-03-30 14:24 | P.PN ---
Subjective Progress Note Date: 03/30/25 SURGICAL PROGRESS NOTE CHIEF COMPLAINT: Left dermal abscess of the scrotum HISTORY OF PRESENT ILLNESS: Patient reports slight increase in pain last night and that left groin and scrotal area. He does report there to be some more firmness in that area. The amount of drainage has decreased. Culture growing presumptive Staph aureus. Afebrile. PHYSICAL EXAM: VITAL SIGNS: Reviewed. GENERAL: Well-developed in no acute distress. Skin: Scrotal induration improved. No further drainage at this time. Decreased tenderness. ASSESSMENT: 1. Left scrotal dermal abscess status post spontaneous drainage PLAN: - Continue antibiotics per ID service - No surgical intervention planned - Consult urology for left scrotal dermal abscess - Recommend warm compresses Physician Wash Barrel Leader note has been reviewed by physician. Signing provider agrees with the documented findings, assessment, and plan of care. Objective - Vital Signs Vital signs: Vital Signs Temp 98.0 F 03/30/25 07:45 Pulse 68 03/30/25 12:14 Resp 20 03/30/25 12:14 BP 158/104 03/30/25 12:16 Pulse Ox 99 03/30/25 12:14 FiO2 Intake & Output 03/29/25 03/30/25 03/30/25 18:59 06:59 18:59 Intake Total 118 400 Balance 118 400 Intake: Oral 118 400 Other: Voiding Method Toilet Toilet # Voids 1 3 # Bowel Movements 3 - Labs CBC & Chem 7: 03/29/25 04:59 03/30/25 05:56 Labs: Abnormal Lab Results - Last 24 Hours (Table) 03/30/25 Range/Units 05:56 Chloride 108 H (98-107) mmol/L BUN 2 L (9-20) mg/dL Creatinine 0.56 L (0.66-1.25) mg/dL Glucose 69 L (74-99) mg/dL Microbiology - Last 24 Hours (Table) 03/28/25 18:00 Stool Culture - Preliminary Stool 03/27/25 17:00 Blood Culture - Preliminary Blood 03/28/25 13:17 Gram Stain - Preliminary Other - Other Wound Culture - Preliminary Presumptive Staph aureus
--- NOTE | 2025-03-30 14:45 | P.PN ---
Subjective Progress Note Date: 03/30/25 Hospital Course: 44 year old M with PMH of chronic alcohol abuse and nicotine dependence presents to the ED for scrotal pain. Patient reports swelling and redness on his left scrotum that has been getting worse over the past 2 days. Pain ranges from 3- 10/10. He also reports chills. Similar incident in 03/2024 complicated with C. diff colitis which was treated medically. Patient reports diarrhea on and off over the past 1.5 years. Symptoms worsened yesterday with > 20 watery bowel movements. No blood or melena. Never had a C-scope.Patient also reports chest pain that started yesterday. Pain is described as squeezing and stabbing in nature, left sided without radiation. No changes with deep inspiration or movement. He does report daily drinking 6-12 beers daily. Smokes 1.5-2 PPD. In the ED he underwent extensive evaluation. BP 114/79, HR 122, T 97.9F, RR 20, 99% on RA. CBC, Coag panel, CMP significant for WBC 18.02, RBC 6.18, Hg 20, Hct 57.5, PT 19.6, INR 1.9, APTT 30.9, Na 133, bicarb 16, BUN 6, glu 139, T. Bili 1.9, AST 85, ALT 71, alk phos 254. Lactic 1.7. Trop < 0.012. C> diff neg. CT AP showed liquid stool, left inguinal lymph node enlargement measuring 11 mm, hepatic steatosis. EKG showed sinus tachycardia with rate of 110. Started on Vancomycin and IV hydration and admitted for further workup and management. Echo shows EF 55-60%. Repeat C. diff negative as well. Cardiology recommends outpatient stress testing. 03/30: Patient seen and examined at bedside, no acute events overnight. Patient is afebrile with heart rate in the 60s, BP 135/91. Creatinine 0.56, normal sodium and potassium. Patient complains of discomfort in the Abscessed Area. Surgery Consulted Urology. Wound Cultures Growing Presumptive Staph Aureus, Blood Cultures negative, ID following. Later I was notified by RN that patient developed chest pain again, EKG was performed and showed no ST elevation or depression, troponin obtained and came back negative Pertinent positives and negatives as discussed above, a complete review of systems was performed and all other systems are negative. Vitals Signs Reviewed. General: [nontoxic], [no distress], [appears at stated age] Derm: [warm], [dry] Head: [atraumatic], [normocephalic], [symmetric] Eyes: [EOMI], [no lid lag], [anicteric sclera] Mouth: [no lip lesion], [mucus membranes moist] Cardiovascular: [S1S2 reg], [no murmur] Lungs: [CTA bilateral], [no rhonchi, no rales] , [no accessory muscle use] Abdominal: [soft], [ nontender to palpation], [no guarding], [no appreciable organomegaly] Ext: [no gross muscle atrophy], [no edema], [no contractures] Neuro: [ CN II-XI grossly intact], [no focal neuro deficits] Psych: [Alert], [oriented], [appropriate affect] Data Reviewed Today: Assessment and Plan: Sepsis secondary to scrotal abscess/cellulitis secondary to Staph aureus -ID following, appreciate recommendations -Continue vancomycin pharmacy to dose, monitor daily BMP SO 03/28 -decrease LR to 100 cc/h -Urology consulted by surgery -Pain control with Toradol 15 mg IV Q6H, Morphine 2 mg IV Q4H PRN pain. Tylenol 650 mg PO Q6H PRN fever Elevated blood pressure readings -Patient was educated on importance of regular blood pressure checks, he will be provided with PCP contacted to establish care, he will follow-up with cardiology after discharge Chest pain: ACS ruled out. Echo as above. Cardiology recommending outpatient stress test. HypoNa likely secondary to dehydration: IV hydration as above. Diarrhea: Repeat C. diff. Giardia and stool Cx ordered by ID. May benefit from outpatient C-scope. Transaminitis likely due to EtOH abuse with hepatic steatosis as seen on CT AP EtOH abuse: CIWA protocol with Ativan as needed. Continue MVI, Thiamine and Folic acid. Resolved: Polycythermia, metabolic acidosis DVT ppx: Lovenox Code status: Full code Anticipated discharge place: Home Anticipated discharge time: TBD Objective - Vital Signs Vital signs: Vital Signs Temp 97.9 F 03/30/25 13:57 Pulse 98 03/30/25 13:57 Resp 17 03/30/25 13:57 BP 150/103 03/30/25 13:57 Pulse Ox 98 03/30/25 13:57 FiO2 Intake & Output 03/29/25 03/30/25 03/30/25 18:59 06:59 18:59 Intake Total 118 400 Balance 118 400 Intake: Oral 118 400 Other: Voiding Method Toilet Toilet # Voids 1 3 # Bowel Movements 3 - Labs CBC & Chem 7: 03/29/25 04:59 03/30/25 05:56 Labs: Abnormal Lab Results - Last 24 Hours (Table) 03/30/25 Range/Units 05:56 Chloride 108 H (98-107) mmol/L BUN 2 L (9-20) mg/dL Creatinine 0.56 L (0.66-1.25) mg/dL Glucose 69 L (74-99) mg/dL Microbiology - Last 24 Hours (Table) 03/28/25 18:00 Stool Culture - Preliminary Stool 03/27/25 17:00 Blood Culture - Preliminary Blood 03/28/25 13:17 Gram Stain - Preliminary Other - Other Wound Culture - Preliminary Presumptive Staph aureus
--- NOTE | 2025-03-30 14:58 | P.PN ---
Subjective Progress Note Date: 03/30/25 Reason for consult is Left-sided scrotal pain and swelling x days Patient is a 44-year-old male with a past medical history significant for recurrent skin soft tissue infection did have history of scrotal abscess about a year ago with MRSA and also have a history of C. difficile colitis presenting to the hospital for evaluation of increasing discomfort to the left side of the scrotal area that apparently started as a small pimple that has increased in size became more painful. 03/29/2025 patient seen and examined at bedside. No acute events overnight. Reported having increased swelling and pain Labs: Creatinine 0.56, Vanco trough 20 Objective - Vital Signs Vital signs: Vital Signs Temp 98.0 F 03/30/25 07:45 Pulse 80 03/30/25 07:45 Resp 17 03/30/25 07:45 BP 135/91 03/30/25 07:45 Pulse Ox 98 03/30/25 07:45 FiO2 Intake & Output 03/29/25 03/30/25 03/30/25 18:59 06:59 18:59 Intake Total 118 Balance 118 Intake: Oral 118 Other: Voiding Method Toilet # Voids 1 3 # Bowel Movements 3 - Exam Physical examination: Vital signs reviewed General: non toxic, no distress, appears at stated age Head: atraumatic, normocephalic, symmetric Mouth: no lip lesion, mucus membranes moist Cardiovascular: S1S2 reg, no murmur Lungs: CTA bilateral, no rhonchi, no rales, no accessory muscle use Abdominal: soft, nondistended, nontender to palpation, no guarding : left scrotum erythematous with improved swelling, tenderness of palpation, tract noted on the left side above the scrotum showed no discharge, other tracts noted beneath the scrotum without discharge or swelling Ext: no gross muscle atrophy, no contractures, positive dorsalis pedis pulse bilateral, no edema Neuro: no gross focal neuro deficits Psych: Alert and oriented x3, appropriate affect and mood - Labs CBC & Chem 7: 03/31/25 05:20 03/31/25 05:20 Labs: Abnormal Lab Results - Last 24 Hours (Table) 03/30/25 Range/Units 05:56 Chloride 108 H (98-107) mmol/L BUN 2 L (9-20) mg/dL Creatinine 0.56 L (0.66-1.25) mg/dL Glucose 69 L (74-99) mg/dL Microbiology - Last 24 Hours (Table) 03/27/25 17:00 Blood Culture - Preliminary Blood 03/28/25 13:17 Gram Stain - Preliminary Other - Other Wound Culture - Preliminary Presumptive Staph aureus Assessment and Plan (1) Diarrhea Current Visit: Yes Status: Acute Code(s): R19.7 - DIARRHEA, UNSPECIFIED SNOMED Code(s): 82875050 (2) Scrotal abscess Current Visit: Yes Status: Acute Code(s): N49.2 - INFLAMMATORY DISORDERS OF SCROTUM SNOMED Code(s): 98159976 Plan: Patient presented to hospital pain swelling redness to left sinus scrotal area with evidence of scrotal abscess and cellulitis spontaneous drainage did have previous history of MRSA discussed after infection likely presenting MRSA skin abscess and cellulitis Local cultures positive for presumptive Staph aureus. -Patient also with chronic diarrhea, stool negative for C. difficile, Giardia and Cryptosporidium antigen. Stool cultures final results pending. -Recommend urology consult for further evaluation -We will empirically treat with the vancomycin pharmacy to dose while waiting for the culture to finalize Lisa Layne MD PGY-2 Infectious disease service Patient was personally seen and examined care discussed in detail with the resident physician documentation reviewed and agree, local culture currently growing Staph aureus sensitivities pending still complaining of some swelling to the area ultrasound will be ordered for now continue the vancomycin with the discharge antibiotics on the basis of final culture Dictation was produced using [employer] dictation software. please excuse any g rammatical, word or spelling errors. Time with Patient: Less than 30
[2025-03-30] MEDS: LORazepam 1 MG TAB PO PRN (18:24)
--- NOTE | 2025-03-31 07:08 | P.GSCN ---
History of Present Illness Consult date: 03/30/25 Reason for Consult: Scrotal abscess Requesting physician: Carolyn Obregon History of present illness: The patient is a 44-year-old white male with a very long history of recurrent abscesses involving his back, axilla, and scrotum. He has required several I&D's in the past. He now presents with a 5-day history of left scrotal pain and swelling with spontaneous drainage. However, he feels that his swelling has worsened in the past 24 hours. Wound cultures show MRSA and Peptococcus. He is being treated with vancomycin. Review of Systems - Constitutional Reports chills, Denies fever Past Medical History Past Medical History: No Reported History History of Any Multi-Drug Resistant Organisms: C-DIFF, MRSA Year Discovered:: 08/31/22 MDRO Source:: Groin Past Surgical History: Hernia Repair Additional Past Surgical History / Comment(s): hernia Additional Past Anesthesia/Blood Transfusion Reaction / Comm: Pt states that coming of anesthesia is hard for him, he states he is not himself for 3 to 4 days, feels disassociated during this time. Pt states "not alexa, feel like is in the wrong reality." Past Psychological History: Anxiety, PTSD Smoking Status: Current every day smoker Past Alcohol Use History: None Reported, Daily Additional Past Alcohol Use History / Comment(s): Pt states he used to drink a 12-pack per day but he stopped drinking alcohol 2 weeks ago. Past Drug Use History: Marijuana Medications and Allergies Home Medications Medication Instructions Recorded Confirmed Type L.acidoph,Paracasei, B.lactis 1 cap PO DAILY 03/27/25 03/27/25 History [Probiotic] Allergies Allergy/AdvReac Type Severity Reaction Status Date / Time guaifenesin Allergy Unknown Verified 03/27/25 14:00 Surgical - Exam Vital Signs Temp Pulse Resp BP Pulse Ox 97.9 F 122 H 20 114/79 99 03/27/25 12:12 03/27/25 12:12 03/27/25 12:12 03/27/25 12:12 03/27/25 12:12 - General well developed, well nourished, no distress - Respiratory normal respiratory effort - Genitourinary The penis is normal. The testes are normal. Scrotal skin shows changes suggestive of hidradenitis. A small opening is present within an area of induration on the lateral aspect of the left hemiscrotum. Some purulent drainage can be expressed through this opening. There is no fluctuance or cellulitis. - Psychiatric oriented to time, oriented to person, oriented to place, speech is normal, memory intact Results - Labs 03/29/25 04:59 03/30/25 05:56 Abnormal Lab Results - Last 24 Hours (Table) 03/30/25 Range/Units 05:56 Chloride 108 H (98-107) mmol/L BUN 2 L (9-20) mg/dL Creatinine 0.56 L (0.66-1.25) mg/dL Glucose 69 L (74-99) mg/dL Microbiology - Last 24 Hours (Table) 03/28/25 18:00 Stool Culture - Preliminary Stool 03/27/25 17:00 Blood Culture - Preliminary Blood 03/28/25 13:17 Gram Stain - Preliminary Other - Other Wound Culture - Preliminary Presumptive Staph aureus Diabetes panel 03/30/25 Range/Units 05:56 Sodium 137 (137-145) mmol/L Potassium 3.6 (3.5-5.1) mmol/L Chloride 108 H (98-107) mmol/L Carbon Dioxide 23 (22-30) mmol/L BUN 2 L (9-20) mg/dL Creatinine 0.56 L (0.66-1.25) mg/dL Glucose 69 L (74-99) mg/dL Calcium 8.6 (8.4-10.2) mg/dL Calcium panel 03/30/25 Range/Units 05:56 Calcium 8.6 (8.4-10.2) mg/dL Pituitary panel 03/30/25 Range/Units 05:56 Sodium 137 (137-145) mmol/L Potassium 3.6 (3.5-5.1) mmol/L Chloride 108 H (98-107) mmol/L Carbon Dioxide 23 (22-30) mmol/L BUN 2 L (9-20) mg/dL Creatinine 0.56 L (0.66-1.25) mg/dL Glucose 69 L (74-99) mg/dL Calcium 8.6 (8.4-10.2) mg/dL Adrenal panel 03/30/25 Range/Units 05:56 Sodium 137 (137-145) mmol/L Potassium 3.6 (3.5-5.1) mmol/L Chloride 108 H (98-107) mmol/L Carbon Dioxide 23 (22-30) mmol/L BUN 2 L (9-20) mg/dL Creatinine 0.56 L (0.66-1.25) mg/dL Glucose 69 L (74-99) mg/dL Calcium 8.6 (8.4-10.2) mg/dL - Imaging CT scan - pelvis: report reviewed, image reviewed Assessment and Plan (1) Abscess of scrotal wall Current Visit: Yes Status: Acute Code(s): N49.2 - INFLAMMATORY DISORDERS OF SCROTUM SNOMED Code(s): 72957371 Plan: I have recommended to the patient that he undergo incision and drainage to confirm that the abscess is indeed adequately drained. This should allow the abscess to resolve more quickly. However, he understands that he has hidradenitis and is prone to abscesses, and that I&D does not reduce the likelihood of future abscesses. He is agreeable and I intend to do this at the bedside tomorrow morning. Time with Patient: Greater than 30
[2025-03-31 07:58] LABS: Basophils # (A) 0.06 X 10*3/uL (0.00-0.10); Basophils % (A) 1.2 %; Eosinophils # (A) 0.28 X 10*3/uL (0.04-0.35); Eosinophils % (A) 5.5 %; HCT 43.9 % (39.6-50.0); HGB 14.8 g/dL (13.0-17.0); Immature Grans, Automated 0.60 %; Lymphocytes # (A) 1.38 X 10*3/uL (0.90-5.00); Lymphocytes % (A) 27.1 %; MCH 32.7 pg (27.0-32.0); MCHC 33.7 g/dL (32.0-37.0); MCV 97.1 FL (80.0-97.0); Monocytes # (A) 0.72 X 10*3/uL (0.20-1.00); Monocytes % (A) 14.1 %; NRBC Per 100 WBC 0 X 10*3/uL (0.00-0.01); Neutrophils # (A) 2.63 X 10*3/uL (1.80-7.70); Neutrophils % (A) 51.5 %; Platelet Count 205 X 10*3/uL (140-440); RBC 4.52 X 10*6/uL (4.40-5.60); RDW 14.4 % (11.5-14.5); WBC 5.10 X 10*3/uL (4.50-10.00)
[2025-03-31 08:16] LABS: Anion Gap 8.30 mmol/L (4.00-12.00); BUN/Creat Ratio <5.83 Ratio (12.00-20.00); Blood Urea Nitrogen <3.5 mg/dL (9.0-27.0); Calcium 8.4 mg/dL (8.7-10.3); Carbon Dioxide 24.7 mmol/L (21.6-31.8); Chloride 106 mmol/L (96-109); Glucose 76 mg/dL (70-110); Potassium 3.3 mmol/L (3.5-5.5); Sodium 139 mmol/L (135-145)
[2025-03-31] MEDS: LIDOCAINE 1% INJ 10MG/ML (20 ML MDV) SQ ONE (08:18)
[2025-03-31] MEDS: HYDROcodone/APAP 7.5-325MG 1 EACH TAB PO PRN (10:05)
[2025-03-31] MEDS: metroNIDAZOLE 500 MG TAB PO SCH (10:18)
--- NOTE | 2025-03-31 11:17 | P.PN ---
Subjective Progress Note Date: 03/31/25 Hospital Course: 44 year old M with PMH of chronic alcohol abuse and nicotine dependence presents to the ED for scrotal pain. Patient reports swelling and redness on his left scrotum that has been getting worse over the past 2 days. Pain ranges from 3- 10/10. He also reports chills. Similar incident in 03/2024 complicated with C. diff colitis which was treated medically. Patient reports diarrhea on and off over the past 1.5 years. Symptoms worsened yesterday with > 20 watery bowel movements. No blood or melena. Never had a C-scope.Patient also reports chest pain that started yesterday. Pain is described as squeezing and stabbing in nature, left sided without radiation. No changes with deep inspiration or movement. He does report daily drinking 6-12 beers daily. Smokes 1.5-2 PPD. In the ED he underwent extensive evaluation. BP 114/79, HR 122, T 97.9F, RR 20, 99% on RA. CBC, Coag panel, CMP significant for WBC 18.02, RBC 6.18, Hg 20, Hct 57.5, PT 19.6, INR 1.9, APTT 30.9, Na 133, bicarb 16, BUN 6, glu 139, T. Bili 1.9, AST 85, ALT 71, alk phos 254. Lactic 1.7. Trop < 0.012. C> diff neg. CT AP showed liquid stool, left inguinal lymph node enlargement measuring 11 mm, hepatic steatosis. EKG showed sinus tachycardia with rate of 110. Started on Vancomycin and IV hydration and admitted for further workup and management. Wound cultures growing MRSA, derma bacteria hominis, cryptococcus anaerobes. Urology was consulted. Echo shows EF 55-60%. Repeat C. diff negative as well. Cardiology recommends outpatient stress testing. 03/31: Patient seen and examined at bedside, no acute events overnight. Patient is afebrile with heart rate in the 60s, BP 153/99. Symptomatic, monitor patient on amlodipine 5 daily. Urology performed bedside I&D, patient tolerated procedure well, keep is continued on vancomycin. ID started Flagyl 500 mg p.o. 3 times daily. Discussed with RN, patient's [place] increased to 7.5 every 4 hours as needed. Ultrasound scrotum with Doppler ordered by ID, pending. Pertinent positives and negatives as discussed above, a complete review of systems was performed and all other systems are negative. Vitals Signs Reviewed. General: [nontoxic], [no distress], [appears at stated age] Derm: [warm], [dry] Head: [atraumatic], [normocephalic], [symmetric] Eyes: [EOMI], [no lid lag], [anicteric sclera] Mouth: [no lip lesion], [mucus membranes moist] Cardiovascular: [S1S2 reg], [no murmur] Lungs: [CTA bilateral], [no rhonchi, no rales] , [no accessory muscle use] Abdominal: [soft], [ nontender to palpation], [no guarding], [no appreciable organomegaly] Ext: [no gross muscle atrophy], [no edema], [no contractures] Neuro: [ CN II-XI grossly intact], [no focal neuro deficits] Psych: [Alert], [oriented], [appropriate affect] Data Reviewed Today: Assessment and Plan: Sepsis secondary to scrotal abscess/cellulitis secondary MRSA, Enterobacter ho minis, cryptococcus and robust status post I&D 03/31 -ID following, appreciate recommendations -Scrotal ultrasound ordered and pending -Continue vancomycin pharmacy to dose, monitor daily BMP SO 03/28, Flagyl 500 p.o. 3 times daily started on 03/31 - Discontinue IV fluids -Urology, appreciate recommendations -Pain control with Toradol 15 mg IV Q6H, Morphine 2 mg IV Q4H PRN pain. Tylenol 650 mg PO Q6H PRN fever, [place] 7.5 every 4 hours as needed Elevated blood pressure readings -Patient was educated on importance of regular blood pressure checks, he will be provided with PCP contacted to establish care, he will follow-up with cardiology after discharge -Start amlodipine 5 mg daily Chest pain: ACS ruled out. Echo as above. Cardiology recommending outpatient stress test. HypoNa likely secondary to dehydration: IV hydration as above. Diarrhea: Repeat C. diff. Giardia and stool Cx ordered by ID. May benefit from outpatient C-scope. Transaminitis likely due to EtOH abuse with hepatic steatosis as seen on CT AP EtOH abuse: CIWA protocol with Ativan as needed. Continue MVI, Thiamine and Folic acid. Resolved: Polycythermia, metabolic acidosis DVT ppx: Lovenox Code status: Full code Anticipated discharge place: Home Anticipated discharge time: TBD Objective - Vital Signs Vital signs: Vital Signs Temp 97.3 F L 03/31/25 07:52 Pulse 79 03/31/25 07:52 Resp 16 03/31/25 07:52 BP 160/78 03/31/25 07:52 Pulse Ox 97 03/31/25 07:52 FiO2 Intake & Output 03/30/25 03/31/25 03/31/25 18:59 06:59 18:59 Intake Total 700 Balance 700 Intake: Oral 700 Other: Voiding Method Toilet Toilet # Voids 2 # Bowel Movements 0 - Labs CBC & Chem 7: 03/31/25 05:20 03/31/25 05:20 Labs: Abnormal Lab Results - Last 24 Hours (Table) 03/31/25 03/31/25 Range/Units 05:20 05:20 MCV 97.1 H (80.0-97.0) FL MCH 32.7 H (27.0-32.0) pg Potassium 3.3 L (3.5-5.5) mmol/L BUN <3.5 L (9.0-27.0) mg/dL BUN/Creatinine Ratio <5.83 L (12.00-20.00) Ratio Calcium 8.4 L (8.7-10.3) mg/dL Microbiology - Last 24 Hours (Table) 03/28/25 18:00 Stool Culture - Preliminary Stool 03/27/25 17:00 Blood Culture - Preliminary Blood 03/28/25 13:17 Gram Stain - Final Other - Other Wound Culture - Final Methicillin resist S. aureus Dermabacter hominis 03/28/25 13:17 Anaerobic Culture - Preliminary Other - Other Peptococcus anaerobius
--- NOTE | 2025-03-31 11:25 | US ---
EXAMINATION TYPE: US scrotum with doppler. DATE OF EXAM: 03/31/2025 COMPARISON: NONE CLINICAL INDICATION: Male, 44 years old with history of abscess; MRSA in lateral left scrotal sac [place] t was just drained by urologist before US was performed, assess for any additional fluid collections TECHNIQUE: Grayscale, color Doppler and spectral Doppler imaging of the scrotum. FINDINGS: EXAM MEASUREMENTS: TESTICLES: Right Testicle: 4.5 x 3.1 x 2.1 cm Left Testicle: 4.3 x 3.2 x 2.5 cm EPIDIDYMIS HEAD: Right Epididymis: 1.7 cm - 3.0cm collection of chronic epi cysts per patient, feels like a marble to him but no pain, diagnosed years ago Left Epididymis: 1.1 cm Doppler performed to assess for testicular vascularity; good bilateral color flow and spectral wavefo emir are seen. There is no evidence of testicular torsion. Presence of hydroceles: no Presence of varicoceles: no no additional fluid collections seen at this time IMPRESSION: No evidence for acute process. Right epididymal cyst. No evidence for intratesticular mass. Appropriate arterial and venous spectral waveforms to the testes. [facility], , 03/31/2025 11:22 AM
[2025-03-31] MEDS: amLODIPine 5 MG TAB PO SCH (14:13)
--- NOTE | 2025-03-31 15:28 | P.PN ---
Subjective Progress Note Date: 03/31/25 SURGICAL PROGRESS NOTE CHIEF COMPLAINT: Left dermal abscess of the scrotum HISTORY OF PRESENT ILLNESS: Patient is status post I&D by urology of left scrotal scrotal wall abscess. Pain controlled. Afebrile. PHYSICAL EXAM: VITAL SIGNS: Reviewed. GENERAL: Well-developed in no acute distress. ASSESSMENT: 1. Scrotal wall abscess PLAN: -Continue urology management - Continue antibiotics per ID service Physician Emergency Veterinary Technician note has been reviewed by physician. Signing provider agrees with the documented findings, assessment, and plan of care. Objective - Vital Signs Vital signs: Vital Signs Temp 97.3 F L 03/31/25 07:52 Pulse 79 03/31/25 07:52 Resp 16 03/31/25 07:52 BP 160/78 03/31/25 07:52 Pulse Ox 97 03/31/25 07:52 FiO2 Intake & Output 03/30/25 03/31/25 03/31/25 18:59 06:59 18:59 Intake Total 700 240 Balance 700 240 Intake: Oral 700 240 Other: Voiding Method Toilet Toilet # Voids 2 # Bowel Movements 0 - Labs CBC & Chem 7: 03/31/25 05:20 03/31/25 05:20 Labs: Abnormal Lab Results - Last 24 Hours (Table) 03/31/25 03/31/25 Range/Units 05:20 05:20 MCV 97.1 H (80.0-97.0) FL MCH 32.7 H (27.0-32.0) pg Potassium 3.3 L (3.5-5.5) mmol/L BUN <3.5 L (9.0-27.0) mg/dL BUN/Creatinine Ratio <5.83 L (12.00-20.00) Ratio Calcium 8.4 L (8.7-10.3) mg/dL Microbiology - Last 24 Hours (Table) 03/28/25 18:00 Stool Culture - Preliminary Stool 03/27/25 17:00 Blood Culture - Preliminary Blood 03/28/25 13:17 Gram Stain - Final Other - Other Wound Culture - Final Methicillin resist S. aureus Dermabacter hominis 03/28/25 13:17 Anaerobic Culture - Preliminary Other - Other Peptococcus anaerobius
--- NOTE | 2025-03-31 16:52 | P.PN ---
Subjective Progress Note Date: 03/31/25 Reason for consult is Left-sided scrotal pain and swelling x days Patient is a 44-year-old male with a past medical history significant for recurrent skin soft tissue infection did have history of scrotal abscess about a year ago with MRSA and also have a history of C. difficile colitis presenting to the hospital for evaluation of increasing discomfort to the left side of the scrotal area that apparently started as a small pimple that has increased in size became more painful. 03/31/2025 patient seen and examined at bedside. No acute events overnight. Denied new complaints or symptoms. Patient reported small volume of yellowish discharge from the tract above the scrotum. No diarrhea overnight. Labs: WBC 5.1, creatinine 0.6. Anaerobic culture showed positive for Pepto coccus anaerobes. Wound cultures showed MRSA and derma bacteria hominis. Imaging: Scrotal ultrasound showed no evidence for acute process, intratesticular mass, noted right epididymal cyst. Appropriate arterial and venous waveforms to the testes Objective - Vital Signs Vital signs: Vital Signs Temp 97.3 F L 03/31/25 07:52 Pulse 79 03/31/25 07:52 Resp 16 03/31/25 07:52 BP 160/78 03/31/25 07:52 Pulse Ox 97 03/31/25 07:52 FiO2 Intake & Output 03/30/25 03/31/25 03/31/25 18:59 06:59 18:59 Intake Total 700 240 Balance 700 240 Intake: Oral 700 240 Other: Voiding Method Toilet Toilet # Voids 2 # Bowel Movements 0 - Exam Physical examination: Vital signs reviewed General: non toxic, no distress, appears at stated age Head: atraumatic, normocephalic, symmetric Mouth: no lip lesion, mucus membranes moist Cardiovascular: S1S2 reg, no murmur Lungs: CTA bilateral, no rhonchi, no rales, no accessory muscle use Abdominal: soft, nondistended, nontender to palpation, no guarding : left scrotum erythematous with improved swelling, tenderness of palpation, tract noted on the left side above the scrotum showed no discharge, other tracts noted beneath the scrotum without discharge or swelling Ext: no gross muscle atrophy, no contractures, positive dorsalis pedis pulse bilateral, no edema Neuro: no gross focal neuro deficits Psych: Alert and oriented x3, appropriate affect and mood - Labs CBC & Chem 7: 04/01/25 05:31 04/01/25 05:31 Labs: Abnormal Lab Results - Last 24 Hours (Table) 03/31/25 03/31/25 Range/Units 05:20 05:20 MCV 97.1 H (80.0-97.0) FL MCH 32.7 H (27.0-32.0) pg Potassium 3.3 L (3.5-5.5) mmol/L BUN <3.5 L (9.0-27.0) mg/dL BUN/Creatinine Ratio <5.83 L (12.00-20.00) Ratio Calcium 8.4 L (8.7-10.3) mg/dL Microbiology - Last 24 Hours (Table) 03/28/25 18:00 Stool Culture - Preliminary Stool 03/27/25 17:00 Blood Culture - Preliminary Blood 03/28/25 13:17 Gram Stain - Final Other - Other Wound Culture - Final Methicillin resist S. aureus Dermabacter hominis 03/28/25 13:17 Anaerobic Culture - Preliminary Other - Other Peptococcus anaerobius Assessment and Plan (1) Diarrhea Status: Acute Code(s): R19.7 - DIARRHEA, UNSPECIFIED SNOMED Code(s): 45693140 (2) Scrotal abscess Status: Acute Code(s): N49.2 - INFLAMMATORY DISORDERS OF SCROTUM SNOMED Code(s): 25625845 Plan: Patient presented to hospital pain swelling redness to left sinus scrotal area with evidence of scrotal abscess and cellulitis spontaneous drainage did have previous history of MRSA discussed after infection likely presenting MRSA skin abscess and cellulitis. Scrotal ultrasound showed no evidence for acute process -Patient also with chronic diarrhea, stool negative for C. difficile, Giardia and Cryptosporidium antigen. Stool cultures final results pending. -Anaerobic culture positive for Peptostreptococcus anaerobes. Wound culture positive for MRSA Enterobacter hominis -Urology consult recommended I&D at bedside -Continue with vancomycin IVPB dosed per pharmacy. Initiate Flagyl 500 mg p.o. 3 times daily due to culture results requiring anaerobic coverage Thank you for this consultation. Will follow this patient along with you Lisa Layne MD PGY-2 Infectious disease service Patient was personally seen and examined care discussed in detail with the resident physician documentation reviewed and agree, patient mention overall improvement with the pain to the scrotal area no further drainage cultures c urrently growing MRSA and anaerobes patient is covered with vancomycin and Flagyl will transition to oral antibiotics on discharge wilfred alamo MD Dictation was produced using [employer] dictation software. please excuse any grammatical, word or spelling errors. Time with Patient: Less than 30
--- NOTE | 2025-03-31 20:33 | P.PCN ---
Date of Procedure: 03/31/25 Preoperative Diagnosis: Left scrotal abscess Postoperative Diagnosis: Same Procedure(s) Performed: Incision and drainage of left scrotal abscess Anesthesia: local Surgeon: Prieto Juarez Estimated Blood Loss (ml): 5 Pathology: none sent Condition: stable Disposition: no change Indications for Procedure: Patient is a 44-year-old white male with a left scrotal abscess, which is spontaneously draining but there is concern that is draining incompletely, as purulence can be expressed through the small opening on the left lateral scrotum. Operative Findings: An abscess cavity is noted within the left hemiscrotum, but without any purulence. Description of Procedure: The patient lied supine in bed. The external genitalia was prepped and draped sterilely. 1% lidocaine was injected subcutaneously around the area which was draining. A 15 blade scalpel was used to make an incision extending inferiorly from the opening. This incision was deepened until it reached a cavity. A cotton tip applicator was applied through the incision and into a cavity which extended into the dependent portion of the left hemiscrotum. The scrotal skin in the dependent area of the scrotum was thinned. With the cotton tip applicator advanced to the dependent portion of the scrotum, lidocaine was injected subcutaneously and a 7 mm incision was made in the dependent portion of the scrotum. Although an abscess cavity was identified, there was no accumulation of pus or fluid. Through the upper incision, the cavity was packed with half-inch iodoform gauze. 4 x 4's were then placed over the incisions. The patient tolerated the procedure well.
[2025-04-01 06:00] LABS: African American GFR (CKD) >90 (>60 ml/min/1.73 sqM); Anion Gap 5 mmol/L; Blood Urea Nitrogen <2 mg/dL (9-20); Calcium 8.5 mg/dL (8.4-10.2); Carbon Dioxide 25 mmol/L (22-30); Chloride 106 mmol/L (98-107); Glucose 69 mg/dL (74-99); Non-African American GFR(CKD) >90 (>60 ml/min/1.73 sqM); Potassium 3.1 mmol/L (3.5-5.1); Sodium 136 mmol/L (137-145)
[2025-04-01] MEDS: VANCOMYCIN TROUGH DUE 1 EACH MISC MISCELLANE ONE (06:21)
[2025-04-01 07:48] VITALS: BP 155/99; PULSE 79; RESP 15; TEMP 97.9
[2025-04-01 08:12] LABS: Basophils # (A) 0.04 X 10*3/uL (0.00-0.10); Basophils % (A) 0.8 %; Eosinophils # (A) 0.28 X 10*3/uL (0.04-0.35); Eosinophils % (A) 5.3 %; HCT 44.6 % (39.6-50.0); HGB 14.8 g/dL (13.0-17.0); Immature Grans, Automated 0.80 %; Lymphocytes # (A) 1.15 X 10*3/uL (0.90-5.00); Lymphocytes % (A) 21.6 %; MCH 31.9 pg (27.0-32.0); MCHC 33.2 g/dL (32.0-37.0); MCV 96.1 FL (80.0-97.0); Monocytes # (A) 0.70 X 10*3/uL (0.20-1.00); Monocytes % (A) 13.1 %; NRBC Per 100 WBC 0 X 10*3/uL (0.00-0.01); Neutrophils # (A) 3.12 X 10*3/uL (1.80-7.70); Neutrophils % (A) 58.4 %; Platelet Count 208 X 10*3/uL (140-440); RBC 4.64 X 10*6/uL (4.40-5.60); RDW 14.2 % (11.5-14.5); WBC 5.33 X 10*3/uL (4.50-10.00)
[2025-04-01] MEDS ORDERED: Potassium Replacement Protocol 1 EACH MISC MISCELLANE PRN (08:15)
[2025-04-01] MEDS: amLODIPine 5 MG TAB PO ONE (09:03)
[2025-04-01] MEDS: POTASSIUM CHLORIDE ER 20 MEQ TAB.ER PO SCH (09:03)
--- NOTE | 2025-04-01 11:30 | P.PN ---
Subjective Progress Note Date: 04/01/25 Reason for consult is Left-sided scrotal pain and swelling x days Patient is a 44-year-old male with a past medical history significant for recurrent skin soft tissue infection did have history of scrotal abscess about a year ago with MRSA and also have a history of C. difficile colitis presenting to the hospital for evaluation of increasing discomfort to the left side of the scrotal area that apparently started as a small pimple that has increased in size became more painful. Postive anaerobe culture and wound culture growing MRSA and dermobacter hominis. 04/01/2025 patient seen and examined at bedside. No acute events overnight. Denied any new complaints or symptoms. Status post I&D POD 1 Labs: WBC 5.3, creatinine 0.45, Vanco trough 24.1. Anaerobic culture also growing anaerobe and Aerococcus vaginalis, Prevotella and Bacteroides ovatus Objective - Vital Signs Vital signs: Vital Signs Temp 97.9 F 04/01/25 06:59 Pulse 79 04/01/25 06:59 Resp 15 04/01/25 06:59 BP 155/99 04/01/25 06:59 Pulse Ox 98 04/01/25 06:59 FiO2 Intake & Output 03/31/25 04/01/25 04/01/25 18:59 06:59 18:59 Intake Total 480 Balance 480 Intake: Oral 480 Other: Voiding Method Toilet # Voids 4 2 - Exam Physical examination: Vital signs reviewed General: non toxic, no distress, appears at stated age Head: atraumatic, normocephalic, symmetric Mouth: no lip lesion, mucus membranes moist Cardiovascular: S1S2 reg, no murmur Lungs: CTA bilateral, no rhonchi, no rales, no accessory muscle use Abdominal: soft, nondistended, nontender to palpation, no guarding : left scrotum erythematous with improved swelling, tract noted on the left side above the scrotum showed no discharge but with slight bleeding after procedure, other tracts noted beneath the scrotum without discharge or swelling Ext: no gross muscle atrophy, no contractures, positive dorsalis pedis pulse bilateral, no edema Neuro: no gross focal neuro deficits Psych: Alert and oriented x3, appropriate affect and mood - Labs CBC & Chem 7: 04/01/25 05:31 04/01/25 05:31 Labs: Abnormal Lab Results - Last 24 Hours (Table) 04/01/25 Range/Units 05:31 Sodium 136 L (137-145) mmol/L Potassium 3.1 L (3.5-5.1) mmol/L BUN <2 L (9-20) mg/dL Creatinine 0.45 L (0.66-1.25) mg/dL Glucose 69 L (74-99) mg/dL Microbiology - Last 24 Hours (Table) 03/28/25 18:00 Stool Culture - Final Stool 03/28/25 13:17 Anaerobic Culture - Final Other - Other Anaerococcus vaginalis Peptococcus anaerobius Prevotella species Bacteroides ovatus Assessment and Plan (1) Diarrhea Status: Acute Code(s): R19.7 - DIARRHEA, UNSPECIFIED SNOMED Code(s): 39936804 (2) Scrotal abscess Status: Acute Code(s): N49.2 - INFLAMMATORY DISORDERS OF SCROTUM SNOMED Code(s): 70477694 Plan: Patient presented to hospital pain swelling redness to left sinus scrotal area with evidence of scrotal abscess and cellulitis spontaneous drainage did have previous history of MRSA discussed after infection likely presenting MRSA skin abscess and cellulitis. Scrotal ultrasound showed no evidence for acute process -Patient also with chronic diarrhea, stool negative for C. difficile, Giardia and Cryptosporidium antigen. Stool cultures final results pending. -Anaerobic culture positive for Peptostreptococcus anaerobes. Wound culture positive for MRSA Enterobacter hominis -Urology consult recommended I&D at bedside -Continue with vancomycin IVPB dosed per pharmacy. Initiate Flagyl 500 mg p.o. 3 times daily due to culture results requiring anaerobic coverage. Plan to discharge with Bactrim DS p.o. or Flagyl p.o. for 10 days and follow-up outpatient. Thank you for this consultation. Will follow this patient along with you Lisa Layne MD PGY-2 Infectious disease service Attestation: Patient was personally seen and examined care discussed in detail with the resident physician documentation reviewed and agree, patient remains to be afebrile overall improvement in his pain and drainage to the scrotal area will finish therapy with the Bactrim DS and Flagyl x 10 days and a close outpatient follow-up discussed with the admitting physician working on discharge wilfred alamo MD Dictation was produced using [employer] software. please excuse any grammatical, word or spelling errors. Time with Patient: Less than 30
[2025-04-01] MEDS: VANCOMYCIN 1,250 MG in SODIUM CHLORIDE 0.9% 250 ML IVPB SCH (11:43)
--- NOTE | 2025-04-01 13:05 | P.PN ---
Subjective Progress Note Date: 04/01/25 Principal diagnosis: Left scrotal abscess The patient underwent I&D yesterday. An abscess cavity was noted within the left hemiscrotum, but it did not contain any purulence per se. The patient reports mild scrotal discomfort but otherwise feels about the same. Objective - Vital Signs Vital signs: Vital Signs Temp 97.9 F 04/01/25 06:59 Pulse 79 04/01/25 06:59 Resp 15 04/01/25 06:59 BP 155/99 04/01/25 06:59 Pulse Ox 98 04/01/25 06:59 FiO2 Intake & Output 03/31/25 04/01/25 04/01/25 18:59 06:59 18:59 Intake Total 480 118 Balance 480 118 Intake: Oral 480 118 Other: Voiding Method Toilet Toilet # Voids 4 2 - Constitutional General appearance: Present: average body habitus, cooperative, no acute distress - Genitourinary Genitourinary Comment(s): Normal phallus, normal testes. There is no significant scrotal enlargement. No drainage is noted. - Psychiatric Psychiatric: Present: A&O x's 3 - Labs CBC & Chem 7: 04/01/25 05:31 04/01/25 05:31 Labs: Abnormal Lab Results - Last 24 Hours (Table) 04/01/25 Range/Units 05:31 Sodium 136 L (137-145) mmol/L Potassium 3.1 L (3.5-5.1) mmol/L BUN <2 L (9-20) mg/dL Creatinine 0.45 L (0.66-1.25) mg/dL Glucose 69 L (74-99) mg/dL Microbiology - Last 24 Hours (Table) 03/28/25 18:00 Stool Culture - Final Stool 03/28/25 13:17 Anaerobic Culture - Final Other - Other Anaerococcus vaginalis Peptococcus anaerobius Prevotella species Bacteroides ovatus Assessment and Plan (1) Abscess of scrotal wall Current Visit: Yes Status: Acute Code(s): N49.2 - INFLAMMATORY DISORDERS OF SCROTUM SNOMED Code(s): 82230121 Plan: Packing was removed from the scrotal wound. Given the lack of purulence, I do not feel that ongoing packing is necessary. Patient is urologically stable for discharge on appropriate antibiotics. He will follow-up with me into weeks, sooner if his condition is worsening in any way.
--- NOTE | 2025-04-01 13:06 | P.DS ---
Providers Date of admission: 03/28/25 18:27 Attending physician: Nicole Diamond MD Consults: 03/27/25 16:04 Consult Physician Routine Consulting Provider: Robert Bernard Consult Reason/Comments: hemiscrotal cellulitis Do you want consulting provider notified?: Yes, Notify in am 03/27/25 17:14 Consult Physician Routine Consulting Provider: Thelma Nogueira Consult Reason/Comments: scrotal abscess/cellulitis Do you want consulting provider notified?: Yes 03/30/25 11:23 Consult Physician Routine Consulting Provider: Prieto Juarez Consult Reason/Comments: left scrotal abscess Do you want consulting provider notified?: Yes Primary care physician: Stated None Hospital Course: Discharge Diagnosis: Sepsis secondary to scrotal abscess/cellulitis secondary MRSA, Enterobacter hominis, cryptococcus and robust status post I&D 03/31 Hypertension Chest pain Hyponatremia, resolved Diarrhea, resolved Transaminitis likely due to ethanol use Hepatic steatosis Polycythemia, resolved Hospital Course: 44 year old M with PMH of chronic alcohol abuse and nicotine dependence presents to the ED for scrotal pain. Patient reports swelling and redness on his left scrotum that has been getting worse over the past 2 days. Pain ranges from 3- 10/10. He also reports chills. Similar incident in 03/2024 complicated with C. diff colitis which was treated medically. Patient reports diarrhea on and off over the past 1.5 years. Symptoms worsened yesterday with > 20 watery bowel movements. No blood or melena. Never had a C-scope.Patient also reports chest pain that started yesterday. Pain is described as squeezing and stabbing in nature, left sided without radiation. No changes with deep inspiration or movement. He does report daily drinking 6-12 beers daily. Smokes 1.5-2 PPD. In the ED he underwent extensive evaluation. BP 114/79, HR 122, T 97.9F, RR 20, 99% on RA. CBC, Coag panel, CMP significant for WBC 18.02, RBC 6.18, Hg 20, Hct 57.5, PT 19.6, INR 1.9, APTT 30.9, Na 133, bicarb 16, BUN 6, glu 139, T. Bili 1.9, AST 85, ALT 71, alk phos 254. Lactic 1.7. Trop < 0.012. C> diff neg. CT AP showed liquid stool, left inguinal lymph node enlargement measuring 11 mm, hepatic steatosis. EKG showed sinus tachycardia with rate of 110. Started on Vancomycin and IV hydration and admitted for further workup and management. Wound cultures growing MRSA, derma bacteria hominis, cryptococcus anaerobes. Urology was consulted. Echo shows EF 55-60%. Repeat C. diff negative as well. Cardiology recommends outpatient stress testing. Urology performed bedside I&D, patient tolerated procedure well, 04/01: Patient seen examined at bedside, no acute events overnight, no active complaints, feels well. Patient is optimized for discharge. His vitals signs are stable, blood pressure improving on amlodipine, he was educated on importance of checking blood pressure at home and keeping log of the readings. With ID, patient will be discharged on Bactrim and Flagyl for 10 days, follow-up with ID, urology, contact information for PCP offices provided, dermatology contact information provided in the AVS. Discussed DASH diet and importance of exercises, alcohol abstinence. Patient seen and examined at bedside. Vital signs reviewed and stable. General: Nontoxic, no distress, appears at stated age Derm: Warm, dry, signs of eczema Head: Atraumatic, normocephalic, symmetric Eyes: EOMI, no lid lag, anicteric sclera Mouth: No lip lesion, mucus membranes moist Cardiovascular: S1S2 reg, no murmur Lungs: CTA bilateral, no rhonchi, no rales, no accessory muscle use Abdominal: Soft, nontender to palpation, no guarding, no appreciable organomegaly Ext: No gross muscle atrophy, no edema, no contractures Neuro: CN II-XI grossly intact, no focal neuro deficits Psych: Alert, oriented, appropriate affect A total of 40 minutes of time were spent preparing this complex discharge summary. Patient Condition at Discharge: Stable Plan - Discharge Summary Discharge Rx Participant: No New Discharge Prescriptions: New Folic Acid 1 mg PO DAILY #30 tab Aspirin 81 mg PO DAILY #30 tab Sulfamethox-Tmp 800-160Mg [Bactrim DS 800-160 mg] 1 tab PO Q12HR #20 tab metroNIDAZOLE [Flagyl] 500 mg PO TID #30 tab amLODIPine [Norvasc] 10 mg PO DAILY #30 tab Thiamine [Vitamin B-1] 100 mg PO DAILY #30 tab Continue L.acidoph,Paracasei, B.lactis [Probiotic] 1 cap PO DAILY Discharge Medication List L.acidoph,Paracasei, B.lactis [Probiotic] 1 cap PO DAILY 03/27/25 [History] Aspirin 81 mg PO DAILY #30 tab 04/01/25 [Rx] Folic Acid 1 mg PO DAILY #30 tab 04/01/25 [Rx] Sulfamethox-Tmp 800-160Mg [Bactrim DS 800-160 mg] 1 tab PO Q12HR #20 tab 04/01/25 [Rx] Thiamine [Vitamin B-1] 100 mg PO DAILY #30 tab 04/01/25 [Rx] amLODIPine [Norvasc] 10 mg PO DAILY #30 tab 04/01/25 [Rx] metroNIDAZOLE [Flagyl] 500 mg PO TID #30 tab 04/01/25 [Rx] Follow up Appointment(s)/Referral(s): Ruslan Calero MD [Medical Doctor] - 2 Weeks Prieto Juarez MD [STAFF PHYSICIAN] - 2 Weeks Jimmy Dai DO [REFERRING] - 1 Week Bladimir Rinaldi MD [STAFF PHYSICIAN] - 1 Week None,Stated [Primary Care Provider] - 1-2 days Thelma Nogueira MD [STAFF PHYSICIAN] - 1 Week Patient Instructions/Handouts: DASH Eating Plan (DC) Activity/Diet/Wound Care/Special Instructions: Please, establish care with primary care physician. You can find Dr. Rinaldi and Dr Dai contact information in the after visit summary. Follow-up with infectious specialist, urology. Complete 10 more days of antibiotics Regarding dermatology referral, I can provide you with contact information of [facility]: Address: [address], [place] [phone] Discharge Disposition: HOME SELF-CARE
--- NOTE | 2025-04-01 14:33 | P.PN ---
Subjective Progress Note Date: 04/01/25 SURGICAL PROGRESS NOTE CHIEF COMPLAINT: Left dermal abscess of the scrotum HISTORY OF PRESENT ILLNESS: Patient is status post I&D by urology of left scrotal scrotal wall abscess. Pain controlled. Afebrile. Anticipating discharge today. Urology cleared patient for discharge. Afebrile. WBC 5.33 PHYSICAL EXAM: VITAL SIGNS: Reviewed. GENERAL: Well-developed in no acute distress. ASSESSMENT: 1. Scrotal wall abscess PLAN: -Patient can be discharged from surgical standpoint -Antibiotics per ID service Physician Mold Unloader note has been reviewed by physician. Signing provider agrees with the documented findings, assessment, and plan of care. Objective - Vital Signs Vital signs: Vital Signs Temp 97.9 F 04/01/25 06:59 Pulse 79 04/01/25 06:59 Resp 15 04/01/25 06:59 BP 155/99 04/01/25 06:59 Pulse Ox 98 04/01/25 06:59 FiO2 Intake & Output 03/31/25 04/01/25 04/01/25 18:59 06:59 18:59 Intake Total 480 118 Balance 480 118 Intake: Oral 480 118 Other: Voiding Method Toilet Toilet # Voids 4 2 - Labs CBC & Chem 7: 04/01/25 05:31 04/01/25 05:31 Labs: Abnormal Lab Results - Last 24 Hours (Table) 04/01/25 Range/Units 05:31 Sodium 136 L (137-145) mmol/L Potassium 3.1 L (3.5-5.1) mmol/L BUN <2 L (9-20) mg/dL Creatinine 0.45 L (0.66-1.25) mg/dL Glucose 69 L (74-99) mg/dL Microbiology - Last 24 Hours (Table) 03/28/25 18:00 Stool Culture - Final Stool 03/28/25 13:17 Anaerobic Culture - Final Other - Other Anaerococcus vaginalis Peptococcus anaerobius Prevotella species Bacteroides ovatus
[2025-04-02] MEDS ORDERED: amLODIPine 10 MG TAB PO SCH (09:00)
== END 2025-04-01 14:30 | disposition home health service (06) | DRG 854 ==
LOC: EC 12:03 → 6NMEDSUR 16:42 → OBSVTOIN 03-28 18:27
PROVIDERS: ADMIT Family Medicine; ATTEND Family Medicine
PROC: 0V950ZZ Drainage of Scrotum, Open Approach (ICD-10-PCS; principal; 2025-03-31)
DX: A41.02 Sepsis due to Methicillin resistant Staphylococcus aureus (principal); E87.1 Hypo-osmolality and hyponatremia; E87.20 Acidosis, unspecified; I10 Essential (primary) hypertension; F10.10 Alcohol abuse, uncomplicated; K70.0 Alcoholic fatty liver; A41.89 Other specified sepsis; E86.0 Dehydration; N49.2 Inflammatory disorders of scrotum; D75.1 Secondary polycythemia; R07.89 Other chest pain; F17.200 Nicotine dependence, unspecified, uncomplicated; L30.9 Dermatitis, unspecified; L73.2 Hidradenitis suppurativa; N50.89 Other specified disorders of the male genital organs; Z88.8 Allergy status to other drugs, medicaments and biological substances
CPT/HCPCS: 36415; 74177; 76870; 80048; 80053; 80061; 80202; 83036; 83605; 83735; 83880; 84439; 84443; 84484; 85025; 85027; 85610; 85730; 86140; 87040; 87045; 87046; 87070; 87075; 87077; 87186; 87205; 87328; 87329; 87493; 93005; 93306; 93975; 96361; 96365; 96366; 96375; 99285